=== PATIENT | female | born 1965 | race Caucasian/White ===

== ENCOUNTER 2019-09-13 13:08 | Observation (INO) ==
[2019-09-13] MEDS ORDERED: MoRPHine SULFATE 4 MG/ML 1 ML CARP\\VIAL IV STA ×3 (13:17→15:30)
--- NOTE | 2019-09-13 13:22 | Emergency Department Note ---
Impression & Plan Fall, Gait instability, Back pain ED Provider Note Provider: Uday Hernandez MD DATE OF SERVICE: 09/13/2019 CHIEF COMPLAINT: Fall HISTORY OF PRESENT ILLNESS: Patient is a 53-year-old female with a history of back issues, diabetes, fibromyalgia presenting today via ambulance after a ground-level fall at home. Patient states she is been falling much more frequently recently has been seeing her doctor in [facility]. Patient states that she is been given a walker and was noted to have low B12 and just started B12 supplementation injections. Patient states today her feet seem to give out on her she fell over a coffee table. States she did strike her head but denies loss of consciousness. Not significantly on anticoagulants. Complaining of significant pain from her posterior head all the way down to her upper buttocks. Pain predominantly in the back. Denies anterior chest pain or abdominal pain. Denies significant pain in her extremities. Patient arrives via EMS again on a [place]cal[place] and in a c-collar. No pain medicine prior to arrival beyond her daily tramadol which is a has not been helping with her pain. Pain is worse with movement. REVIEW OF SYSTEMS: A total of 10 review of systems was obtained and negative except as stated above in the HPI. PAST MEDICAL HISTORY: As noted above, prior cholecystectomy MEDICATIONS: Reviewed the nursing notes and agree, SOCIAL HISTORY: Lives at home, is a smoker PHYSICAL EXAM: GENERAL: alert and oriented in no acute distress on stretcher Head: normocephalic and atraumatic EYES: No injection, discharge or icterus. PERRL, EOMI. NECK: Trachea midline. Supple. Does have some mild diffuse posterior pain not particularly midline ENT: Mucous membranes pink and moist. LUNGS: Airway patent. No retractions. Breath sounds clear anteriorly HEART: Regular rate and rhythm. No chest wall tenderness ABDOMEN: Soft and non-tender, without guarding or rebound. No hepatosplenomegaly or masses BACK: Diffuse tenderness of the thoracic and lumbar spine and paraspinal areas. No step-offs SKIN: Acyanotic, warm, dry, without rashes EXTREMITIES: Without swelling, tenderness or deformity NEUROLOGICAL: No focal deficits and moving extremities equally. No aphasia or slurred speech. No decreased sensation in the upper or lower extremities. EKG:Normal sinus rhythm rate of 89 bpm. No PVC. No acute ST segment elevation or depression. Normal axis. QTC 474. CONTINUOUS CARDIAC MONITORING: was ordered and showed a heart rate of 90 bpm in NSR Patient's hypertension was referred to the hospitalist GCS 15. HOSPITAL COURSE: 1310 Patient was first seen and H&P performed. 1540 Patient reassessed and updated. Patient was still with pain. She states concerns about her ability to walk and fall risk. Discussed options. Patient's laboratory studies and imaging reviewed. Differential includes Fracture, dislocation, contusion, intra-abdominal, pneumothorax, intrathoracic, intracranial, neurologic, compartment syndrome, rhabdomyolysis, as well as other pathologies. IMPRESSION/MEDICAL DECISION MAKING: Patient presents after a ground-level fall complaining significant posterior head and particularly spine pain. Does have some chronic issue here. Do not see significant neurological deficit at this time. Given the significant pain she is endorsing did complete imaging and basic laboratory studies. I doubt at this time this represents acute cauda equina. I doubt GBS or meningitis. Basic laboratory studies showed no significant cytosis and no anemia. No significant lifeline abnormality. Troponin is negative. No CPK elevation. B12 level is actually elevated likely sequelae of her supplementation if there is a component of B12 neuropathy that should improve. Difficult IV access and did require several doses of morphine for pain. CT scan of the head and neck without acute traumatic injury noted. CT of the chest was completed without acute intrathoracic injury noted. CT of the abdomen pelvis as well as CT of the thoracic and lumbar spine without acute traumatic injury. Some noted common bile duct distention is noted. Patient has no significant ST abnormalities no significant mariza tenderness and prior cholecystectomy believe this is likely more of a chronic finding. No believe it is germane to today's complaint. Given some Toradol here to help with symptoms as well. Discussed with case management and the patient's insurance does not allow direct transfer to rehab facility such [facility] at this time. Given her continued pain and need for rehab services along with fall risk believe admission for further care is indicated. She has ambulatory dysfunction and gait instability. Hospitalist was alerted to evaluate the patient. DIAGNOSIS: Fall, back pain, gait instability DISPOSITION: Hospitalist will evaluate Patient was agreeable with this plan. Past Med/Surg History Social History Communication Ability: Effective Communications Media Professor Required: No Other Information That Helps Us Care for You: No Feels Safe at Home: Yes Safety Concerns: Feels Safe At This Time Smoking Status: Current every day smoker Tobacco Type: cigarettes ; Cigarettes Per Day: 24 ; Do You Dip or Chew Tobacco: No ; Second Hand Exposure: Yes ; Tobacco Cessation Education Requested by Patient: No Hx Alcohol Use: No Hx Substance Use: No Allergies Allergies Allergy/AdvReac Type Severity Reaction Status Date / Time fluoxetine AdvReac Dizziness Unverified 09/13/19 13:38 Home Meds Home Medications Medication Instructions Recorded Confirmed atorvastatin 10 mg PO DAILY 09/13/19 09/13/19 celecoxib 200 mg PO DAILY 09/13/19 09/13/19 citalopram 10 mg PO DAILY 09/13/19 09/13/19 cyanocobalamin (vitamin B-12) 1,000 mcg IM MONTHLY 09/13/19 09/13/19 duloxetine 60 mg PO DAILY 09/13/19 09/13/19 folic acid 1 mg PO DAILY 09/13/19 09/13/19 gabapentin 600 mg PO TID 09/13/19 09/13/19 galcanezumab-gnlm [Emgality Pen] 120 mg SUBCUT MONTHLY 09/13/19 09/13/19 lorazepam 1 mg PO TID PRN 09/13/19 09/13/19 metoclopramide HCl 10 mg PO TID 09/13/19 09/13/19 naloxegol [Movantik] 25 mg PO DAILY 09/13/19 09/13/19 nicotine 1 patch TRANSDERMAL DAILY 09/13/19 09/13/19 pantoprazole 40 mg PO DAILY 09/13/19 09/13/19 sucralfate 1 g PO QID 09/13/19 09/13/19 topiramate 25 mg PO HS 09/13/19 09/13/19 tramadol 100 mg PO Q6 09/13/19 09/13/19 trazodone 50 mg PO HS 09/13/19 09/13/19 Results & Data (ED) Vital Signs Vital Signs - 24 hr 09/13/19 13:17 09/13/19 13:18 09/13/19 15:27 Temperature 36.9 C Temperature Source Oral Pulse Rate 91 H Pulse Rate [Right Finger] 84 Respiratory Rate 18 20 Blood Pressure 162/94 H Blood Pressure [Right Arm] 147/111 H Blood Pressure Mean 116 Blood Pressure Mean [Right Arm] 123 Pulse Oximetry 98 98 99 Oxygen Delivery Method Room Air Room Air Sepsis Recent Fever Within 48 Hours No Sepsis New/Unexplained Change in Mental Status No Sepsis Action Taken by Nursing No Action Required 09/13/19 16:20 Temperature Temperature Source Pulse Rate Pulse Rate [Right Finger] 76 Respiratory Rate 18 Blood Pressure Blood Pressure [Right Arm] 145/76 H Blood Pressure Mean Blood Pressure Mean [Right Arm] 99 Pulse Oximetry 98 Oxygen Delivery Method Sepsis Recent Fever Within 48 Hours Sepsis New/Unexplained Change in Mental Status Sepsis Action Taken by Nursing Laboratory Data Result diagrams: 09/13/19 14:25 09/13/19 14:25 Lab Results 09/13/19 09/13/19 09/13/19 Range/Units 14:05 14:25 14:25 WBC 8.33 (4.8-10.8) K/uL RBC 5.10 (4.2-5.4) M/uL Hgb 16.1 H (12.0-16.0) g/dL Hct 47.1 H (37-47) % MCV 92.4 (80-100) fL MCH 31.6 (25-34) pg MCHC 34.2 (32-36) g/dL RDW Std Deviation 44.7 (36.4-46.3) fL RDW Coeff of Francis 13.1 (11.5-14.5) % Plt Count 241 (130-400) K/uL MPV 8.7 (7.4-10.4) fL Immature Gran % (Auto) 0.1 % Neut % (Auto) 58.8 % Lymph % (Auto) 34.2 % [place] % (Auto) 6.5 % Eos % (Auto) 0.0 % Baso % (Auto) 0.4 % Immature Gran # (Auto) 0.01 (0.00-0.02) K/uL Neut # (Auto) 4.90 (1.4-6.5) K/uL Lymph # (Auto) 2.85 (1.2-3.4) K/uL [place] # (Auto) 0.54 (0.11-0.59) K/uL Eos # (Auto) 0.00 (0-0.5) K/uL Baso # (Auto) 0.03 (0-0.2) K/uL PT 10.9 (9.0-12.0) Seconds INR 1.0 (0.9-1.1) Sodium (136-145) mmol/L Potassium (3.5-5.1) mmol/L Chloride (98-107) mmol/L Carbon Dioxide (21-32) mmol/L Anion Gap (3-11) BUN (7-18) mg/dl Creatinine (0.6-1.2) mg/dl Est Cr Clr Drug Dosing ml/min Est GFR ( Amer) Est GFR (Non-Af Amer) BUN/Creatinine Ratio (10-20) Glucose (70-99) mg/dl Calcium (8.5-10.1) mg/dl Magnesium (1.8-2.4) mg/dl Total Bilirubin (0.2-1) mg/dl AST (15-37) U/L ALT (12-78) U/L Alkaline Phosphatase (45-117) U/L Total Creatine Kinase (26-192) U/L Troponin I (0-0.045) ng/ml Total Protein (6.4-8.2) gm/dl Albumin (3.4-5.0) gm/dl Globulin (2.5-4.0) gm/dl Albumin/Globulin Ratio (0.9-2) Vitamin B12 (211-911) pg/ml Urine Color Yellow Urine Appearance Clear (Clear) Urine pH 7.5 (4.5-7.5) Ur Specific [place] 1.005 (1.000-1.030) Urine Protein Negative (Negative) Urine Glucose (UA) Negative (Negative) Urine Ketones Negative (Negative) Urine Blood Negative (Negative) Urine Nitrite Negative (Negative) Urine Bilirubin Negative (Negative) Urine Urobilinogen Negative (Negative) Ur Leukocyte Esterase Negative (Negative) 09/13/19 09/13/19 Range/Units 14:25 14:25 WBC (4.8-10.8) K/uL RBC (4.2-5.4) M/uL Hgb (12.0-16.0) g/dL Hct (37-47) % MCV (80-100) fL MCH (25-34) pg MCHC (32-36) g/dL RDW Std Deviation (36.4-46.3) fL RDW Coeff of Francis (11.5-14.5) % Plt Count (130-400) K/uL MPV (7.4-10.4) fL Immature Gran % (Auto) % Neut % (Auto) % Lymph % (Auto) % [place] % (Auto) % Eos % (Auto) % Baso % (Auto) % Immature Gran # (Auto) (0.00-0.02) K/uL Neut # (Auto) (1.4-6.5) K/uL Lymph # (Auto) (1.2-3.4) K/uL [place] # (Auto) (0.11-0.59) K/uL Eos # (Auto) (0-0.5) K/uL Baso # (Auto) (0-0.2) K/uL PT (9.0-12.0) Seconds INR (0.9-1.1) Sodium 139 (136-145) mmol/L Potassium 4.1 (3.5-5.1) mmol/L Chloride 109 H (98-107) mmol/L Carbon Dioxide 25 (21-32) mmol/L Anion Gap 5.0 (3-11) BUN 9 (7-18) mg/dl Creatinine 0.97 (0.6-1.2) mg/dl Est Cr Clr Drug Dosing 76.8 ml/min Est GFR ( Amer) 76.7 Est GFR (Non-Af Amer) 66.2 BUN/Creatinine Ratio 9.0 L (10-20) Glucose 91 (70-99) mg/dl Calcium 9.1 (8.5-10.1) mg/dl Magnesium 2.2 (1.8-2.4) mg/dl Total Bilirubin 0.4 (0.2-1) mg/dl AST 25 (15-37) U/L ALT 28 (12-78) U/L Alkaline Phosphatase 79 (45-117) U/L Total Creatine Kinase 79 (26-192) U/L Troponin I < 0.015 (0-0.045) ng/ml Total Protein 7.7 (6.4-8.2) gm/dl Albumin 3.7 (3.4-5.0) gm/dl Globulin 4.0 (2.5-4.0) gm/dl Albumin/Globulin Ratio 0.9 (0.9-2) Vitamin B12 1631 H (211-911) pg/ml Urine Color Urine Appearance (Clear) Urine pH (4.5-7.5) Ur Specific [place] (1.000-1.030) Urine Protein (Negative) Urine Glucose (UA) (Negative) Urine Ketones (Negative) Urine Blood (Negative) Urine Nitrite (Negative) Urine Bilirubin (Negative) Urine Urobilinogen (Negative) Ur Leukocyte Esterase (Negative) Administered Medications Ioversol (Optiray 320 100ml) 94 ml IV ONCE PRN PRN Reason: Interaction Checking Stop: 09/17/19 15:16 Last Admin: 09/13/19 15:17 Dose: 94 ml Documented by: [id number] Sucralfate (Carafate Tab) 1 gm PO QID AMELIE Stop: 10/13/19 18:05 Last Admin: 09/13/19 18:46 Dose: 1 gm Documented by: [id number] Tramadol HCl (Ultram) 100 mg PO Q6 [facility] Stop: 10/13/19 18:05 Last Admin: 09/13/19 18:45 Dose: 100 mg Documented by: [id number] Discontinued Medications Hydrocodone Bitart/Acetaminophen ([place] 5/325) Confirm Administered Dose 1 tab PO .STK-MED ONE Stop: 09/13/19 17:32 Last Admin: 09/13/19 17:36 Dose: 1 tab Documented by: [id number] Ketorolac Tromethamine (Toradol) 15 mg IV NOW STA Stop: 09/13/19 15:41 Last Admin: 09/13/19 15:46 Dose: 15 mg Documented by: [id number] Morphine Sulfate (Morphine Sulfate) 4 mg IV NOW STA Stop: 09/13/19 13:18 Last Admin: 09/13/19 13:44 Dose: 4 mg Documented by: [id number] Morphine Sulfate (Morphine Sulfate) 4 mg IV NOW STA Stop: 09/13/19 14:25 Last Admin: 09/13/19 14:40 Dose: 4 mg Documented by: [id number] Morphine Sulfate (Morphine Sulfate) 4 mg IV NOW STA Stop: 09/13/19 15:31 Last Admin: 09/13/19 15:42 Dose: 4 mg Documented by: [id number] Discharge Plan Visit Data *Final* Discharge Date/Time: 09/13/19 17:55 Chief Complaint: Back Injury/Pain Stated Complaint: fall/ head & neck pain ED Provider: Uday Hernandez Discharge Problem: Fall, Gait instability, Back pain Patient Disposition: Admitted As Inpatient Discharge Instructions Interventions: ED Discharge Assessment Last Done: 09/13/19 17:55 Discharge Problem: Fall Qualifiers: Encounter type: initial encounter Qualified Code(s): W19.XXXA - Unspecified fall, initial encounter Back pain Qualifiers: Back pain location: back pain in unspecified location Chronicity: acute Back pain laterality: bilateral Qualified Code(s): M54.9 - Dorsalgia, unspecified
[2019-09-13 14:38] LABS: Basophils # (auto) 0.03 K/uL (0-0.2); Basophils % (auto) 0.4 %; Hematocrit (blood only) 47.1 % (37-47); Hemoglobin 16.1 g/dL (12.0-16.0); Immature Granulocytes # (auto) 0.01 K/uL (0.00-0.02); Immature Granulocytes % (auto) 0.1 %; Lymphocytes # (auto) 2.85 K/uL (1.2-3.4); Lymphocytes % (auto) 34.2 %; Mean Corpuscular Hemoglobin 31.6 pg (25-34); Mean Corpuscular Hgb Conc 34.2 g/dL (32-36); Mean Corpuscular Volume 92.4 fL (80-100); Mean Platelet Volume 8.7 fL (7.4-10.4); Monocytes # (auto) 0.54 K/uL (0.11-0.59); Monocytes % (auto) 6.5 %; Neutrophils % (auto) 58.8 %; Platelet Count 241 K/uL (130-400); RDW Coefficient of Variation 13.1 % (11.5-14.5); RDW Standard Deviation 44.7 fL (36.4-46.3); White Blood Count 8.33 K/uL (4.8-10.8)
[2019-09-13 14:40] LABS: Appearance Urine Clear (Clear); Bilirubin Urine Negative (Negative); Blood Urine Negative (Negative); Color Urine Yellow; Glucose Urine UA Negative (Negative); Ketones Urine Negative (Negative); Leukocyte Esterase Urine Negative (Negative); Nitrite Urine Negative (Negative); Protein Urine Negative (Negative); Specific Gravity Urine 1.005 (1.000-1.030); Urobilinogen Urine Negative (Negative); pH Urine 7.5 (4.5-7.5)
[2019-09-13 14:45] LABS: Prothrombin Time 10.9 Seconds (9.0-12.0)
[2019-09-13 14:52] LABS: Alanine Aminotransferase 28 U/L (12-78); Albumin Level 3.7 gm/dl (3.4-5.0); Aspartate Aminotransferase 25 U/L (15-37); Blood Urea Nitrogen 9 mg/dl (7-18); Calcium 9.1 mg/dl (8.5-10.1); Carbon Dioxide 25 mmol/L (21-32); Chloride 109 mmol/L (98-107); Creatinine Clr Calc Pharmacy 76.8 ml/min; Est GFR (African American) 76.7; Est GFR (Non-African American) 66.2; Glucose 91 mg/dl (70-99); Magnesium 2.2 mg/dl (1.8-2.4); Potassium 4.1 mmol/L (3.5-5.1); Sodium 139 mmol/L (136-145)
[2019-09-13 14:56] LABS: Albumin Globulin Ratio 0.9 (0.9-2); Alkaline Phosphatase 79 U/L (45-117); Bilirubin,Total 0.4 mg/dl (0.2-1); Creatine Kinase 79 U/L (26-192); Total Protein 7.7 gm/dl (6.4-8.2); Troponin I < 0.015 ng/ml (0-0.045)
[2019-09-13] MEDS ORDERED: IOVERSOL 100ml IV PRN (15:17)
--- NOTE | 2019-09-13 15:26 | CT Scan Report ---
CT OF THE CERVICAL SPINE CLINICAL HISTORY: Neck pain status post trauma COMPARISON STUDY: No previous studies for comparison. CT DOSE: TECHNIQUE: CT scan of the cervical spine was performed from the skull base to the thoracic inlet. Supriya ges are reviewed in the axial, sagittal, and coronal planes. IV contrast was not administered for thi s examination. A dose lowering technique was utilized adhering to the principles of ALARA. FINDINGS: The visualized portions of the lung apices reveal no evidence of pneumothorax. The prevertebral soft tissues are normal. No fractures or subluxations are visualized. There are multilevel degenerative changes, most pronounced the C5-C6 and C7-T1 levels. IMPRESSION: No evidence of acute fracture or traumatic subluxation. ACT 112: Negative or not required by law. Electronically signed by: Mynor Higgins M.D. 09/13/2019 3:25 PM
--- NOTE | 2019-09-13 15:26 | CT Scan Report ---
CT head/brain wo con CLINICAL HISTORY: Head pain status post trauma COMPARISON STUDY: No previous studies for comparison. TECHNIQUE: Axial CT of the brain is performed from the vertex to the skull base. IV contrast was not administered for this examination. A dose lowering technique was utilized adhering to the principles of ALARA. CT DOSE: FINDINGS: No intra or extra-axial mass lesions are visualized. There is no CT evidence of acute cortical infarc tion. There is no evidence of midline shift. There is no acute hemorrhage. No calvarial fractures ar e visualized. There is no evidence of pathologic ventricular dilatation. There is a sphenoid sinus air-fluid level. There are postsurgical changes present within the maxillar y and ethmoid sinuses. IMPRESSION: 1. Sphenoid sinus air-fluid level. 2. Otherwise no acute intracranial findings. ACT 112: Negative or not required by law. Electronically signed by: Mynor Higgins M.D. 09/13/2019 3:25 PM
--- NOTE | 2019-09-13 15:31 | CT Scan Report ---
CT OF THE CHEST WITH IV CONTRAST CLINICAL HISTORY: Chest pain status post trauma COMPARISON STUDY: No previous studies for comparison. TECHNIQUE: Following the IV administration of 94 mL of Optiray-320, CT of the thorax was performed f rom the thoracic inlet to the lung bases. Images are reviewed in the axial, sagittal, and coronal gabi rosana. IV contrast was administered without complication. A dose lowering technique was utilized adher ing to the principles of ALARA. CT DOSE: FINDINGS: Thyroid: Imaged portions of the thyroid gland are normal in appearance. Thoracic aorta: The thoracic aorta is normal in course and caliber, noting standard 3-vessel arch kareem crow. No aneurysm or dissection is seen. Pulmonary vasculature: The pulmonary trunk is normal in caliber. There are no central filling defects identified to suggest pulmonary embolus. Note that this examination was not protocoled for the evalu ation of pulmonary emboli. HEART: There is no pericardial effusion. There are coronary artery calcifications. Lungs and pleural spaces: There is no pneumothorax. There are no pleural effusions. There is mild dep endent atelectasis. There is no evidence of pulmonary contusion. There is a punctate calcified right upper lobe granuloma. Mediastinum: There is no evidence of mediastinal hematoma. There is no evidence of pathologic adenopa thy. [place]: There is no evidence of pathologic hilar lymphadenopathy Axilla: There is no evidence of pathologic axillary lymphadenopathy. Upper abdomen: The gallbladder is surgically absent. The common bile duct is dilated measuring 14 mm . There is mild central hepatic biliary ductal prominence. Skeletal structures: No fractures are visualized. IMPRESSION: No evidence of acute intrathoracic injury. ACT 112: Negative or not required by law. Electronically signed by: Mynor Higgins M.D. 09/13/2019 3:30 PM
--- NOTE | 2019-09-13 15:39 | CT Scan Report ---
THORACIC SPINE CT, LUMBAR SPINE CT CT DOSE: HISTORY: fall TECHNIQUE: Multiaxial CT images of the thoracic and lumbar spine were performed and reformatted in th e sagittal and coronal plane without the use of contrast. A dose lowering technique was utilized adh ering to the principles of ALARA. COMPARISON: None. FINDINGS: No fractures. No subluxation. Paraspinal soft tissues are unremarkable. Posterior fusion de fect at L5 and within the sacrum. This is likely developmental. Distended common bile duct measuring up to 1.6 cm. This will be better appreciated on the same day abdomen and pelvis CT. IMPRESSION: 1. No fractures within the thoracic or lumbar spine. 2. Distended common bile duct which will be better appreciated on the same day abdomen and pelvis CT. ACT 112: Negative or not required by law. Electronically signed by: Hay Alves M.D. 09/13/2019 3:37 PM
--- NOTE | 2019-09-13 15:39 | CT Scan Report ---
CT abd pelvis IV con only CLINICAL HISTORY: Abdominal pain status post trauma COMPARISON STUDY: None. TECHNIQUE: The patient was scanned in a dynamic helical fashion during intravenous administration of 94 cc of Optiray 320 A dose lowering technique was utilized adhering to the principles of ALARA. CT DOSE: FINDINGS: Lower chest: There are mild dependent atelectatic changes Liver: There is a to small to characterize 5 mm hypodensity within the right lobe of the liver, possi lisa representing a cyst. There is mild central biliary ductal prominence. The common hepatic duct stefano ears dilated. Gallbladder: Surgically absent. The common bile duct is dilated measuring 17 mm. No distal common stephen e duct or ampullary lesions are visualized on CT scanning. Spleen: Normal in size and attenuation. Pancreas: Unremarkable. There is no pancreatic ductal dilatation. Adrenal glands: Unremarkable. Kidneys: There is no evidence of acute renal injury. There are no solid renal masses. There is a 3 mm left renal calculus there is no hydronephrosis. Bowel: There are no transition zones indicate bowel obstruction. Postsurgical changes are present wit hin the sigmoid colon. There are no findings to indicate acute appendicitis. A distended pelvic bowel , is felt to be postsurgical. Peritoneum: There is no intraperitoneal free air or abdominal ascites. Vasculature: There is no evidence of abdominal aortic aneurysm. Aortoiliac atherosclerotic changes ar e evident. Adenopathy: None. Pelvic viscera: The uterus appears surgically absent. Skeletal structures: No fractures are visualized. IMPRESSION: 1. No evidence of acute intra-abdominal or pelvic injury. 2. Nonspecific common bile duct dilatation status post cholecystectomy 3. Postsurgical changes within the bowel ACT 112: Negative or not required by law. Electronically signed by: Mynor Higgins M.D. 09/13/2019 3:38 PM
[2019-09-13] MEDS ORDERED: KETOROLAC TROMETHAMINE 15 MG/ML VIAL IV STA (15:40)
[2019-09-13] MEDS ORDERED: HYDROCODONE/ACETAMOPHEN 5/325MG TAB PO ONE (17:31)
--- NOTE | 2019-09-13 17:32 | History & Physical Report ---
Date of Service September 13, 2019 Assessment & Plan (1) Gait instability: Admit med surg PT/OT evals - will likely need rehab Will order MRI to rule out CVA given right sided weakness (2) Fall: CT Chest, cervical spine, head, lumbar spine - no acute processes As above (3) Back pain: Toradol, [place], heat application CT spin as above (4) Fibromyalgia: continue duloxetine, gabapentin (5) COPD (chronic obstructive pulmonary disease): does not appear to take any inhalers, will need to have patient follow up (6) B12 deficiency: B12 is 1631, patient receiving B12 shots (7) Tobacco abuse: Encourage cessation (8) DVT prophylaxis: Continue enoxaparin, SCDs History of Present Illness Ms. Warren is presents today for lumbar back pain and gait instability. She has had multiple falls over the last month and a half. She doesn't have any dizziness, she just feels her legs go out from under her. She was being worked up for this with her pcp who diagnosed her with B12 deficiency and neuropathy. She has been receiving B12 shots without any improvement of her symptoms. She is a smoker with a chronic cough, some chronic sob as well. Recent cold a week ago that is now resolving, no fevers. She does have some sinus congestion on her CT. She has abdominal pain which is chronic and is scheduled for a colonoscopy on 09/27. She has been having diarrhea but only had loss of control of her bowels once in the past month, no urinary incontinence or saddle anesthesia. She is frequently nauseas. She reports some ongoing urinary frequency. Pmhx: COPD, B12 deficiency, bowel distention, fibromyalgia Social: lives alone, smokes 2 packs per day for 40 years, no alcohol, on disability Family: cancer, heart disease Primary Care Provider: Jose Patterson Allergies Allergy/AdvReac Type Severity Reaction Status Date / Time fluoxetine AdvReac Dizziness Unverified 09/13/19 13:38 Home Medications Home Medications Medication Instructions Recorded Confirmed Type atorvastatin 10 mg PO DAILY 09/13/19 09/13/19 History celecoxib 200 mg PO DAILY 09/13/19 09/13/19 History citalopram 10 mg PO DAILY 09/13/19 09/13/19 History cyanocobalamin (vitamin B-12) 1,000 mcg IM MONTHLY 09/13/19 09/13/19 History duloxetine 60 mg PO DAILY 09/13/19 09/13/19 History folic acid 1 mg PO DAILY 09/13/19 09/13/19 History gabapentin 600 mg PO TID 09/13/19 09/13/19 History galcanezumab-gnlm [Emgality Pen] 120 mg SUBCUT MONTHLY 09/13/19 09/13/19 History lorazepam 1 mg PO TID PRN 09/13/19 09/13/19 History metoclopramide HCl 10 mg PO TID 09/13/19 09/13/19 History naloxegol [Movantik] 25 mg PO DAILY 09/13/19 09/13/19 History nicotine 1 patch TRANSDERMAL DAILY 09/13/19 09/13/19 History pantoprazole 40 mg PO DAILY 09/13/19 09/13/19 History sucralfate 1 g PO QID 09/13/19 09/13/19 History topiramate 25 mg PO HS 09/13/19 09/13/19 History tramadol 100 mg PO Q6 09/13/19 09/13/19 History trazodone 50 mg PO HS 09/13/19 09/13/19 History Past Med/Surg History Social History Communication Ability: Effective Surgical Nurse Practitioner Required: No Other Information That Helps Us Care for You: No Feels Safe at Home: Yes Safety Concerns: Feels Safe At This Time Smoking Status: Current every day smoker Tobacco Type: cigarettes ; Cigarettes Per Day: 24 ; Do You Dip or Chew Tobacco: No ; Second Hand Exposure: Yes ; Tobacco Cessation Education Requested by Patient: No Hx Alcohol Use: No Hx Substance Use: No Physical Exam Physical Exam: General: no distress Eyes: normal inspection, PERLL Respiratory: chest non tender, clear to auscultation, normal breath sounds, no respiratory distress, no accessory muscle use Cardiac: regular rate and rhythm, no rub or gallop, no murmur, no edema, no jvd GI/: active bowel sounds, abdomen tender, soft, non distended Extremities: left upper and lower extremity weakness Neuro:oriented x 3, moves all extremities, CN II-XII intact except for XI with left side weak, left arm drift Psych: alert, normal mood and affect Skin: normal color, dry Results & Data Results & Data ([facility]) Vital Signs (Past 12 Hours) Vital Signs Temp Pulse Pulse Resp BP BP Pulse Ox 09/13/19 16:20 76 18 145/76 H 98 09/13/19 15:27 84 20 147/111 H 99 09/13/19 13:18 36.9 C 91 H 18 162/94 H 98 09/13/19 13:17 98 Supervising Physician Co-Signing Physician Notes I supervised Yu Heller NP on this patient's care. I discussed the plan of care with her with the plan being as written in her note except for any following changes/exceptions: None. MRI brain is negative for CVA. 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 Will discuss with radiology tomorrow. Otherwise, will pursue pain control, PT/OT, and possible rehab per patient wishes. PG Care Time/CCT Total # of Minutes Spent Total Time Spent with Patient: Total time spent is greater than 50% in coordination of care (as documented) at patient's floor/unit and/or counseling patient: Coding Level of Care Code 51703 Initial Inpt Care Lvl 3 Diagnoses Gait instability R26.81 Fall W19.XXXA Encounter type: initial encounter Back pain M54.9 Fibromyalgia M79.7 COPD (chronic obstructive pulmonary disease) J44.9 B12 deficiency E53.8 Tobacco abuse Z72.0 DVT prophylaxis Z29.9 (1) Fall Encounter type: initial encounter Qualified Code(s): W19.XXXA - Unspecified fall, initial encounter
[2019-09-13] MEDS ORDERED: POLYETHYLENE (MIRALAX) 17 GM PACK PO PRN (18:06)
[2019-09-13] MEDS ORDERED: ACETAMINOPHEN 325 MG TAB PO PRN (18:06)
[2019-09-13] MEDS ORDERED: TRAMADOL HCL 50 MG TABLET PO SCH (18:06)
[2019-09-13] MEDS: SUCRALFATE 1 GM TAB PO SCH ×2 (18:46→21:05)
--- NOTE | 2019-09-13 19:56 | Magnetic Resonance Report ---
MR brain wo con HISTORY: Mental status change gait instability TECHNIQUE: Multiplanar multisequence MRI of the brain was performed without the use of contrast. COMPARISON STUDY: None. FINDINGS: There are no areas of restricted diffusion to suggest acute infarction. The midline structu res are intact. The paranasal sinuses are clear. The mastoid air cells are clear. The ventricles and sulci are within normal limits for age. There is no mass, hematoma, midline shift. The major vascular flow-voids at the skull base are well maintained. IMPRESSION: No acute intracranial abnormality. ACT 112: Negative or not required by law. The above report was generated using voice recognition software. It may contain grammatical, syntax or spelling errors. Electronically signed by: Maverick Negron M.D. 09/13/2019 7:54 PM
[2019-09-13] MEDS ORDERED: TRAZODONE HCL 50 MG TAB PO SCH (21:00)
[2019-09-13] MEDS: GABAPENTIN 600 MG TAB PO SCH (21:06)
[2019-09-13] MEDS: METOCLOPRAMIDE HCL 10 MG TABLET PO SCH (21:06)
[2019-09-13] MEDS: TRAZODONE HCL 50 MG TAB PO SCH (21:07)
[2019-09-13] MEDS: TOPIRAMATE 25 MG TAB PO SCH (21:07)
[2019-09-13] MEDS: KETOROLAC TROMETHAMINE 15 MG/ML VIAL IV PRN (21:16)
[2019-09-14] MEDS: HYDROCODONE/ACETAMOPHEN 5/325MG TAB PO PRN ×3 (00:47→16:22)
[2019-09-14] MEDS: KETOROLAC TROMETHAMINE 15 MG/ML VIAL IV PRN ×3 (03:26→20:32)
[2019-09-14] MEDS: MOVANTIK 25 MG PO SCH (06:03)
[2019-09-14] MEDS: GABAPENTIN 600 MG TAB PO SCH ×3 (07:55→20:12)
[2019-09-14] MEDS: ATORVASTATIN 10 MG TAB PO SCH (07:55)
[2019-09-14] MEDS: DULOXETINE HCL 60 MG CAP PO SCH (07:55)
[2019-09-14] MEDS: FOLIC ACID 1 MG TAB PO SCH (07:55)
[2019-09-14] MEDS: PANTOprazole 40 MG TAB PO SCH (07:56)
[2019-09-14] MEDS: NICOTINE 21 MG/24 HR TDSY TD SCH (07:56)
[2019-09-14] MEDS: METOCLOPRAMIDE HCL 10 MG TABLET PO SCH ×3 (07:56→20:13)
[2019-09-14] MEDS: CITALOPRAM 20 MG TAB PO SCH ×2 (07:56→08:50)
[2019-09-14] MEDS: SUCRALFATE 1 GM TAB PO SCH ×4 (07:56→20:12)
[2019-09-14] MEDS: ENOXAPARIN INJ 40 MG/0.4 ML SYR SQ SCH (07:57)
[2019-09-14 08:35] LABS: Basophils # (auto) 0.03 K/uL (0-0.2); Basophils % (auto) 0.4 %; Hematocrit (blood only) 45.2 % (37-47); Hemoglobin 15.3 g/dL (12.0-16.0); Immature Granulocytes # (auto) 0.02 K/uL (0.00-0.02); Immature Granulocytes % (auto) 0.3 %; Lymphocytes # (auto) 1.54 K/uL (1.2-3.4); Lymphocytes % (auto) 21.5 %; Mean Corpuscular Hemoglobin 31.5 pg (25-34); Mean Corpuscular Hgb Conc 33.8 g/dL (32-36); Mean Platelet Volume 8.5 fL (7.4-10.4); Monocytes # (auto) 0.57 K/uL (0.11-0.59); Monocytes % (auto) 7.9 %; Neutrophils # (auto) 5.01 K/uL (1.4-6.5); Neutrophils % (auto) 69.9 %; Platelet Count 259 K/uL (130-400); RDW Coefficient of Variation 13.3 % (11.5-14.5); RDW Standard Deviation 45.4 fL (36.4-46.3); Red Blood Count 4.86 M/uL (4.2-5.4); White Blood Count 7.17 K/uL (4.8-10.8)
[2019-09-14] MEDS: SODIUM CHLORIDE 0.9% 1000ML 1,000 ML IV SCH ×2 (08:51→20:35)
[2019-09-14 08:53] LABS: BUN Creatinine Ratio 12.8 (10-20); Calcium 9.2 mg/dl (8.5-10.1); Creatinine Clr Calc Pharmacy 64.6 ml/min; Est GFR (Non-African American) 63.8; Potassium 4.2 mmol/L (3.5-5.1)
--- NOTE | 2019-09-14 14:38 | Electrocardiogram Report ---
Test Reason : Blood Pressure : / mmHG Vent. Rate : 089 BPM Atrial Rate : 089 BPM P-R Int : 152 ms QRS Dur : 092 ms QT Int : 390 ms P-R-T Axes : 073 -05 073 degrees QTc Int : 474 ms Normal sinus rhythm Possible Inferior infarct , age undetermined Abnormal ECG No previous ECGs available Confirmed by Jeffrey Moon ([id number]) on 09/14/2019 2:38:07 PM Referred By: REFERRED SELF Confirmed By:Jeffrey Moon
--- NOTE | 2019-09-14 15:20 | Magnetic Resonance Report ---
MR thoracic spine wo con CLINICAL HISTORY: right side weakness PRIOR STUDIES: CT scan dated 09/13/2019 TECHNIQUE: MR scanning of the thoracic spine was performed using multiple pulse sequences. No gadoli nium was administered. FINDINGS: There are no suspicious areas of marrow replacement. There are no areas of bone marrow edema to indicate occult fracture. No spinal cord lesions are visualized on this noncontrast study. No epidural masses are visualized on this noncontrast study. No disc herniations are visualized. There is no spinal stenosis. No paraspinal lesions are delineated. There are mild multilevel degenerative changes. IMPRESSION: 1. Mild multilevel degenerative change. 2. Otherwise unremarkable MRI of the thoracic spine for age ACT 112: Negative or not required by law. Electronically signed by: Mynor Higgins M.D. 09/14/2019 3:19 PM
--- NOTE | 2019-09-14 15:36 | Magnetic Resonance Report ---
MR lumbar spine wo con CLINICAL HISTORY: right side weakness TRAUMA TECHNIQUE: Sagittal and axial T1, T2 and STIR images were obtained. COMPARISON STUDY: CT scan dated 09/13/2019 OBSERVATIONS: The vertebral bodies and posterior elements appear intact. There is no abnormal bony signal present t o suggest a marrow replacement process. L1-2: There is a minor circumferential disc bulge. There is no evidence for spinal or foraminal steno sis L2-3: No disc protrusions or extrusions. No evidence of spinal canal or neural foraminal compromise. L3-4: No disc protrusions or extrusions. No evidence of spinal canal or neural foraminal compromise. L4-5: No disc protrusions or extrusions. No evidence of spinal canal or neural foraminal compromise. L5-S1: There is a minor circumferential disc bulge. There is no spinal stenosis. There is mild bilate ral foraminal narrowing There are no areas of marrow edema to indicate occult fracture. The conus medullaris and cauda equina appear normal. IMPRESSION: 1. Minor disc bulges at the L1-2 and L5-S1 levels. 2. No evidence of occult fracture 3. No evidence of spinal stenosis. Mild bilateral foraminal narrowing at the L5-S1 level. ACT 112: Negative or not required by law. Electronically signed by: Mynor Higgins M.D. 09/14/2019 3:35 PM
--- NOTE | 2019-09-14 16:25 | Magnetic Resonance Report ---
CERVICAL SPINE MRI HISTORY: right side weakness TECHNIQUE: Multiplanar multisequence MRI of the cervical spine was performed without the use of contr ast. COMPARISON STUDY: Cervical spine CT 09/13/2019. FINDINGS: Straightening of the cervical spine. No fracture or subluxation. Prevertebral soft tissues and the C1-C2 interval are intact. Mild disc space at C4-C5 and C5-C6. The cervical spinal cord impin gement a normal signal intensity. The visualized posterior fossa is unremarkable. C2-C3: No significant central canal or neural foraminal narrowing. C3-C4: No significant central canal or neural foraminal narrowing. C4-C5: Small focal central disc protrusion which abuts and slightly deforms anterior cord. This is co nsistent with mild central canal narrowing. No significant neural foraminal narrowing. C5-C6: Broad-based posterior disc osteophyte complex which abuts and slightly deforms anterior cord c onsistent with mild to moderate central canal narrowing. There is severe bilateral neural foraminal n arrowing due to the uncovertebral hypertrophy. C6-C7: Tiny broad-based posterior disc bulge without significant central canal or neural foraminal na rrowing. C7-T1: No significant central canal or neural foraminal narrowing. IMPRESSION: 1. No fractures of fixation within the cervical spine. 2. Straightening of the cervical spine. 3. Degenerative changes as described above most pronounced at the C5-C6 level which demonstrates mild to moderate central canal narrowing and severe bilateral neural foraminal narrowing. ACT 112: Negative or not required by law. Electronically signed by: Hay Alves M.D. 09/14/2019 4:24 PM
--- NOTE | 2019-09-14 16:58 | Hospitalist Progress Note ---
Date of Service September 14, 2019 Assessment & Plan (1) Gait instability: Admit med surg PT/OT evals - will likely need rehab MRI brain without acute changes, MRI spine showing severe bilateral foraminal narrowing C5-6 - will consult ortho given right arm weakness Given history of B12 def and neuropathy, may be that this is the etiology for all of the falls and weakness due to persistence despite B12 repletion (2) Fall: CT Chest, cervical spine, head, lumbar spine - no acute processes As above (3) Back pain: Continue Toradol, [place], heat application CT spin as above (4) Fibromyalgia: continue duloxetine, gabapentin (5) COPD (chronic obstructive pulmonary disease): does not appear to take any inhalers (6) B12 deficiency: B12 is 1631, patient receiving B12 shots (7) Tobacco abuse: Encourage cessation (8) DVT prophylaxis: Continue enoxaparin, SCDs dispo: patient can likely discharge after ortho consult if no intervention indicated. Will need therapy, referrals in to [facility] and [facility] Admission and Anticipated Discharge Date Admission Date: September 13, 2019 Subjective Ms. Warren continues to have back pain, it occasionally radiates down the sides of her legs when she walks. No numbness anywhere. No loss of control of bowels or bladder. She has no other complaints. ROS Constitutional: no chills, aches, sweats or fever Respiratory: no sob,cough, sputum, or wheezing Cardiac: no chest pain, palpitations, edema, orthopnea or lightheadedness GI: no abdominal pain, nausea, vomiting, diarrhea or constipation : no dysuria or hesitancy Extremities: no joint pain or weakness Skin: no rash All other systems reviewed and negative Physical Exam Physical Exam: General: no distress Eyes: normal inspection, PERLL Respiratory: chest non tender, clear to auscultation, normal breath sounds, no respiratory distress, no accessory muscle use Cardiac: regular rate and rhythm, no rub or gallop, no murmur, no edema, no jvd GI/: active bowel sounds, no abd pain or tenderness, soft, non distended Extremities: normal range of motion, normal strength, non tender Neuro/Psych: alert and oriented x 3, normal mood and affect Skin: normal color, dry Results & Data Results & Data ([facility]) Vital Signs (Past 12 Hours) Vital Signs Temp Pulse Resp BP BP Pulse Ox 04/03/20 16:33 36.8 C 92 H 18 146/83 H 99 09/14/19 07:23 96/62 L 09/14/19 07:08 36.7 C 66 20 87/54 L 97 PG Care Time/CCT Total # of Minutes Spent Total Time Spent with Patient: Total time spent is greater than 50% in coordination of care (as documented) at patient's floor/unit and/or counseling patient: Coding Level of Care Code 36620 Subseq Hosp Care Lvl 3 Diagnoses Gait instability R26.81 Fall W19.XXXA Encounter type: initial encounter Back pain M54.9 Back pain laterality: bilateral Back pain location: back pain in unspecified location Chronicity: acute Fibromyalgia M79.7 COPD (chronic obstructive pulmonary disease) J44.9 B12 deficiency E53.8 Tobacco abuse Z72.0 DVT prophylaxis Z29.9 (1) Fall Encounter type: initial encounter Qualified Code(s): W19.XXXA - Unspecified fall, initial encounter (2) Back pain Back pain laterality: bilateral Back pain location: back pain in unspecified location Chronicity: acute Qualified Code(s): M54.9 - Dorsalgia, unspecified
[2019-09-14] MEDS: LORazepam 1 MG TAB PO PRN (20:11)
[2019-09-14] MEDS: TOPIRAMATE 25 MG TAB PO SCH (20:14)
[2019-09-14] MEDS: TRAZODONE HCL 50 MG TAB PO SCH (20:14)
[2019-09-14] MEDS ORDERED: Nursing to Pharmacy Communication ONE (23:10)
[2019-09-15] MEDS: KETOROLAC TROMETHAMINE 15 MG/ML VIAL IV PRN ×4 (05:45→23:05)
[2019-09-15] MEDS: MOVANTIK 25 MG PO SCH (05:48)
[2019-09-15] MEDS: SODIUM CHLORIDE 0.9% 1000ML 1,000 ML IV SCH ×2 (06:28→17:38)
[2019-09-15] MEDS: SUCRALFATE 1 GM TAB PO SCH ×4 (07:37→20:26)
[2019-09-15] MEDS: FOLIC ACID 1 MG TAB PO SCH (07:37)
[2019-09-15] MEDS: DULOXETINE HCL 60 MG CAP PO SCH (07:37)
[2019-09-15] MEDS: METOCLOPRAMIDE HCL 10 MG TABLET PO SCH ×3 (07:38→20:27)
[2019-09-15] MEDS: ENOXAPARIN INJ 40 MG/0.4 ML SYR SQ SCH (07:38)
[2019-09-15] MEDS: GABAPENTIN 600 MG TAB PO SCH ×3 (07:38→20:27)
[2019-09-15] MEDS: ATORVASTATIN 10 MG TAB PO SCH (07:38)
[2019-09-15] MEDS: PANTOprazole 40 MG TAB PO SCH (07:38)
[2019-09-15] MEDS: NICOTINE 21 MG/24 HR TDSY TD SCH (07:38)
[2019-09-15] MEDS: HYDROCODONE/ACETAMOPHEN 5/325MG TAB PO PRN ×2 (08:12→19:24)
[2019-09-15] MEDS ORDERED: EMGALITY 120 MG SQ SCH (09:00)
--- NOTE | 2019-09-15 11:02 | Orthopedic Consultation ---
Date of Consultation September 15, 2019 Assessment & Plan (1) Herniation of cervical intervertebral disc with radiculopathy: Plan at this time I would like to obtain cervical flexion-extension views. While I do not appreciate any evidence of myelomalacia within the cervical cord if there is any underlying instability she may have some cord compression that could account for her Julio Cesar sign and balance issues. She does have several other medical issues that are being addressed. Any surgical intervention at this time would be an ACDF of C5-C6. Present on Admission?: Yes History of Present Illness Reason for Consultation: Neck and right arm pain with weakness Attending Physician: Selin Reynaga, DO History of Present Illness This is a pleasant 53-year-old female that states she is experienced several falls over the past few weeks. She is noting weakness and pain in the right upper extremity as well as the cervical spine. She is left-handed. She describes symptoms rating into the right periscapular region and into the upper shoulder. This is exacerbated with cervical range of motion. Allergies Allergy/AdvReac Type Severity Reaction Status Date / Time fluoxetine AdvReac Dizziness Unverified 09/13/19 13:38 Home Medications Home Medications Medication Instructions Recorded Confirmed Type atorvastatin 10 mg PO DAILY 09/13/19 09/13/19 History celecoxib 200 mg PO DAILY 09/13/19 09/13/19 History citalopram 10 mg PO DAILY 09/13/19 09/13/19 History cyanocobalamin (vitamin B-12) 1,000 mcg IM MONTHLY 09/13/19 09/13/19 History duloxetine 60 mg PO DAILY 09/13/19 09/13/19 History folic acid 1 mg PO DAILY 09/13/19 09/13/19 History gabapentin 600 mg PO TID 09/13/19 09/13/19 History galcanezumab-gnlm [Emgality Pen] 120 mg SUBCUT MONTHLY 09/13/19 09/13/19 History lorazepam 1 mg PO TID PRN 09/13/19 09/13/19 History metoclopramide HCl 10 mg PO TID 09/13/19 09/13/19 History naloxegol [Movantik] 25 mg PO DAILY 09/13/19 09/13/19 History nicotine 1 patch TRANSDERMAL DAILY 09/13/19 09/13/19 History pantoprazole 40 mg PO DAILY 09/13/19 09/13/19 History sucralfate 1 g PO QID 09/13/19 09/13/19 History topiramate 25 mg PO HS 09/13/19 09/13/19 History tramadol 100 mg PO Q6 09/13/19 09/13/19 History trazodone 50 mg PO HS 09/13/19 09/13/19 History Patient History Social History Communication Ability: Effective [employer]al Required: No Other Information That Helps Us Care for You: No Feels Safe at Home: Yes Safety Concerns: Feels Safe At This Time Smoking Status: Current every day smoker Tobacco Type: cigarettes ; Cigarettes Per Day: 24 ; Do You Dip or Chew Tobacco: No ; Second Hand Exposure: Yes ; Tobacco Cessation Education Requested by Patient: No Hx Alcohol Use: No Hx Substance Use: No Physical Exam Physical Exam: On physical exam she exhibits a bilateral Julio Cesar sign to the upper extremities. She has a 3-4 beat clonus bilateral ankles. She does demonstrate weakness to the right biceps compared to the left at a 4/5 on the right. Her grasps also weak on the right compared to the left. Sensory appears to be symmetric and intact. She exhibits evidence of a positive Spurling's to the right negative to the left. Results & Data ([facility]) Vital Signs (Past 12 Hours) Vital Signs Temp Pulse Resp BP Pulse Ox 09/15/19 07:10 36.4 C L 70 18 155/78 H 100 09/14/19 23:27 36.4 C L 77 20 104/67 97 Diagnostic Findings MRI scans available of the cervical thoracic and lumbar spine for review. Certainly appreciate evidence of spondylosis disc protrusion at C4-5, C5-6, C6- 7. There is severe neuroforaminal disease at C5-6 particularly on the right. I do not appreciate any intrinsic cord change. The thoracic and lumbar spine short of basic age-related spondylosis demonstrate no evidence of any cord or neural compression of concern there is some modest neuroforaminal disease at L5- S1 on the right.
--- NOTE | 2019-09-15 12:37 | XRay Report ---
XR cervical spine w flex/ext CLINICAL HISTORY: 53 years-old Female presenting with neck and arm pain. TECHNIQUE: Lateral view of the cervical spine in neutral, extension, and flexion positioning were obt ained as well as bilateral oblique, frontal, open-mouth odontoid, and swimmer's views. COMPARISON: Correlation made to CT and MR of the cervical spine from 09/13/2019 and 09/14/2019, [place] [place] [facility]. FINDINGS: Straightening of normal cervical lordosis on neutral positioning. The C7 vertebral body is mostly vis ualized on swimmer's view. Vertebral bodies maintain normal height and alignment. Mild to moderate in tervertebral disc height loss at C5-6, where there is focal degenerative change with a disc osteophyt e complex. Mild posterior bony spurring at this level. No acute fracture or subluxation. Normal prede ntal interval. No prevertebral soft tissue swelling. Mild facet arthropathy. On extension positioning, trace cervical lordosis is present. No dynamic subluxation. On flexion positioning, slight reversal of cervical alignment with kyphosis centered at C5-6. Bilateral oblique views demonstrate osseous neural foraminal narrowing at C3-4 and to a greater exten t at C5-6 bilaterally. Uncovertebral hypertrophy noted at these levels. Lateral masses of C1 articulate normally with C2. The dens is grossly intact. IMPRESSION: 1. Focal degenerative change at C5-6 with resultant mild osseous spinal canal narrowing. 2. Osseous neural foraminal narrowing at C3-4 and to a greater extent at C5-6, bilaterally. 3. No dynamic subluxation on flexion or extension positioning. 4. No radiographic evidence of acute osseous injury. ACT 112: Negative or not required by law. Electronically signed by: Sanjeev Cai M.D. 09/15/2019 12:35 PM
--- NOTE | 2019-09-15 16:02 | Hospitalist Progress Note ---
Date of Service September 15, 2019 Assessment & Plan (1) Gait instability: Admit med surg PT/OT evals - will likely need rehab MRI brain without acute changes, MRI spine showing severe bilateral foraminal narrowing C5-6 - ortho awaiting further imaging, possible need for surgical intervention Also noted for L1-2, L5-S1 bulging disc Given history of B12 def and neuropathy, may be that this is the etiology for all of the falls and weakness due to persistence despite B12 repletion (2) Fall: CT Chest, cervical spine, head, lumbar spine - no acute processes As above (3) Back pain: Continue Toradol, [place], heat application CT spin as above (4) Fibromyalgia: continue duloxetine, gabapentin (5) COPD (chronic obstructive pulmonary disease): does not appear to take any inhalers (6) B12 deficiency: B12 is 1631, patient receiving B12 shots (7) Tobacco abuse: Encourage cessation (8) DVT prophylaxis: Continue enoxaparin, SCDs Will need therapy, referrals in to [facility] and [facility] Admission and Anticipated Discharge Date Admission Date: September 15, 2019 Subjective Pt is having a lot of pain to her low back and into b/l LE. She states that prior to this recent fall she did have pain in her back and LE with prolonged walking, but now it is with ambulating to the bathroom or even just lying in bed. Ongoing neck pain as well. She did not eat well today due to this pain causing no appetite. She states she can bear weight on her LE, but it is just very painful. No loss of bowel/bladder continence.Pt denies fever, SOB, chest pain, abd pain, n/v/c/d, LE swelling. Review of Systems Review of Systems: Pertinent positives and negatives reviewed in HPI--all others negative Physical Exam Constitutional: WD/WN, vitals as above appears in pain Eyes: normal visual oliva by confrontation and + anicteric sclerae Neck: normal visual inspection and trachea midline Respiratory: normal respiratory effort, lungs clear to auscultation Cardiovascular: Rate/Rhythm: regular rate and regular rhythm Gastrointestinal (Abdomen): Inspection/Auscultation: abdomen not distended Percussion/Palpation: abdomen soft; abdomen nontender Musculoskeletal: Head/Neck/Chest: normocephalic and head atraumatic negative for edema, peripheral pulses intact Skin: no rashes, warm and dry Neurologic: awake; not confused Speech / Cognition: normal speech Psychiatric: A+Ox3, euthymic affect Results & Data Results & Data ([facility]) Vital Signs (Past 12 Hours) Vital Signs Temp Pulse Resp BP Pulse Ox 09/15/19 15:43 36.7 C 87 18 125/76 98 09/15/19 07:10 36.4 C L 70 18 155/78 H 100 PG Care Time/CCT Total # of Minutes Spent Total Time Spent with Patient: Total time spent is greater than 50% in coordination of care (as documented) at patient's floor/unit and/or counseling patient: Coding Level of Care Code 06584 Subseq Hosp Care Lvl 3 Diagnoses Gait instability R26.81 Fall W19.XXXA Encounter type: initial encounter Back pain M54.9 Back pain laterality: bilateral Back pain location: back pain in unspecified location Chronicity: acute Fibromyalgia M79.7 COPD (chronic obstructive pulmonary disease) J44.9 B12 deficiency E53.8 Tobacco abuse Z72.0 DVT prophylaxis Z29.9 (1) Fall Encounter type: initial encounter Qualified Code(s): W19.XXXA - Unspecified fall, initial encounter (2) Back pain Back pain laterality: bilateral Back pain location: back pain in unspecified location Chronicity: acute Qualified Code(s): M54.9 - Dorsalgia, unspecified
[2019-09-15] MEDS: LORazepam 1 MG TAB PO PRN (17:40)
[2019-09-15] MEDS ORDERED: ONDANSETRON 4 MG OD TAB PO PRN (19:30)
[2019-09-15] MEDS: ONDANSETRON INJ 2 MG/ML 2 ML VIAL IV PRN (19:45)
[2019-09-15] MEDS: TRAZODONE HCL 50 MG TAB PO SCH (20:26)
[2019-09-15] MEDS: TOPIRAMATE 25 MG TAB PO SCH (20:27)
[2019-09-16] MEDS: SODIUM CHLORIDE 0.9% 1000ML 1,000 ML IV SCH ×3 (03:22→22:42)
[2019-09-16] MEDS: ONDANSETRON INJ 2 MG/ML 2 ML VIAL IV PRN ×2 (03:22→16:05)
[2019-09-16] MEDS: KETOROLAC TROMETHAMINE 15 MG/ML VIAL IV PRN ×3 (05:45→18:36)
[2019-09-16] MEDS: MOVANTIK 25 MG PO SCH (05:47)
[2019-09-16 07:34] LABS: Creatinine Clr Calc Pharmacy 87.3 ml/min; Est GFR (African American) 106.5; Est GFR (Non-African American) 91.8
[2019-09-16] MEDS: SUCRALFATE 1 GM TAB PO SCH ×4 (08:32→21:01)
[2019-09-16] MEDS: ATORVASTATIN 10 MG TAB PO SCH (08:33)
[2019-09-16] MEDS: NICOTINE 21 MG/24 HR TDSY TD SCH (08:33)
[2019-09-16] MEDS: FOLIC ACID 1 MG TAB PO SCH (08:33)
[2019-09-16] MEDS: DULOXETINE HCL 60 MG CAP PO SCH (08:34)
[2019-09-16] MEDS: GABAPENTIN 600 MG TAB PO SCH ×3 (08:34→21:01)
[2019-09-16] MEDS: METOCLOPRAMIDE HCL 10 MG TABLET PO SCH ×3 (08:34→21:02)
[2019-09-16] MEDS: PANTOprazole 40 MG TAB PO SCH (08:34)
[2019-09-16] MEDS: CITALOPRAM 20 MG TAB PO SCH (08:35)
[2019-09-16] MEDS: ENOXAPARIN INJ 40 MG/0.4 ML SYR SQ SCH (08:35)
[2019-09-16] MEDS: HYDROCODONE/ACETAMOPHEN 5/325MG TAB PO PRN ×2 (09:00→16:05)
--- NOTE | 2019-09-16 10:33 | Orthopedic Progress Note ---
Date of Service September 16, 2019 Assessment & Plan (1) Herniation of cervical intervertebral disc with radiculopathy: After review of her cervical flexion-extension x-rays I appreciate no evidence of instability. There is notable spondylosis most impressive at C5-C6. I have again reviewed her MRIs of the thoracic and lumbar spine and appreciate no significant neural compression certainly anything that would account for her bilateral leg pain and weakness. At this point in light of her underlying medical condition I would not recommend any surgical intervention. She be best served with a course of inpatient rehab if possible. Present on Admission?: Yes Admission and Anticipated Discharge Date Admission Date: September 15, 2019 Results & Data ([facility]) Vital Signs (Past 12 Hours) Vital Signs Temp Pulse Resp BP Pulse Ox 09/16/19 07:13 36.9 C 78 19 110/61 97 09/15/19 22:51 36.7 C 86 18 110/68 96
[2019-09-16] MEDS: LORazepam 1 MG TAB PO PRN ×2 (10:56→20:59)
--- NOTE | 2019-09-16 10:57 | Hospitalist Progress Note ---
Date of Service September 16, 2019 Assessment & Plan (1) Gait instability: PT/OT evals - recs for rehab MRI brain without acute changes, MRI spine showing severe bilateral foraminal narrowing C5-6 - d/w ortho, not planning surgical intervention given no cord compression on f/ex/ext films Also noted for L1-2, L5-S1 bulging disc Given history of B12 def and neuropathy, may be that this is the etiology for all of the falls and weakness due to persistence despite B12 repletion (2) Fall: CT Chest, cervical spine, head, lumbar spine - no acute processes As above (3) Back pain: Continue Toradol, [place], heat application CT spin as above (4) Fibromyalgia: continue duloxetine, gabapentin (5) COPD (chronic obstructive pulmonary disease): does not appear to take any inhalers (6) B12 deficiency: B12 is 1631, patient receiving B12 shots (7) Tobacco abuse: Encourage cessation (8) DVT prophylaxis: Continue enoxaparin, SCDs Planning for rehab, referrals in to [facility] and [facility] Admission and Anticipated Discharge Date Admission Date: September 15, 2019 Subjective Pt is OOB to chair today. She is still having pain to her low back and into b/l LE, but it is less today. She feels she is walking better. Ongoing neck pain as well. She did not eat much breakfast, just coffee and orange juice, but she states that this is her usual breakfast. She feels she will eat lunch today. Pt denies fever, SOB, chest pain, abd pain, n/v/c/d, LE swelling. Review of Systems Review of Systems: Pertinent positives and negatives reviewed in HPI--all others negative Physical Exam Constitutional: WD/WN, vitals as above Eyes: normal visual oliva by confrontation and + anicteric sclerae Neck: normal visual inspection and trachea midline Respiratory: normal respiratory effort, lungs clear to auscultation Cardiovascular: Rate/Rhythm: regular rate and regular rhythm Gastrointestinal (Abdomen): Inspection/Auscultation: abdomen not distended Percussion/Palpation: abdomen soft; abdomen nontender Musculoskeletal: Head/Neck/Chest: normocephalic and head atraumatic Skin: no rashes, warm and dry Neurologic: awake; not confused Speech / Cognition: normal speech Psychiatric: A+Ox3, euthymic affect Results & Data Results & Data ([place]) Vital Signs (Past 12 Hours) Vital Signs Temp Pulse Resp BP Pulse Ox 09/16/19 07:13 36.9 C 78 19 110/61 97 PG Care Time/CCT Total # of Minutes Spent Total Time Spent with Patient: Total time spent is greater than 50% in coor dination of care (as documented) at patient's floor/unit and/or counseling patient: Coding Level of Care Code 66257 Subseq Hosp Care Lvl 3 Diagnoses Gait instability R26.81 Fall W19.XXXA Encounter type: initial encounter Back pain M54.9 Back pain laterality: bilateral Back pain location: back pain in unspecified location Chronicity: acute Fibromyalgia M79.7 COPD (chronic obstructive pulmonary disease) J44.9 B12 deficiency E53.8 Tobacco abuse Z72.0 DVT prophylaxis Z29.9 (1) Fall Encounter type: initial encounter Qualified Code(s): W19.XXXA - Unspecified fall, initial encounter (2) Back pain Back pain laterality: bilateral Back pain location: back pain in unspecified location Chronicity: acute Qualified Code(s): M54.9 - Dorsalgia, unspecified
[2019-09-16] MEDS: BENZOCAINE 20% (ORAJEL) 11.9 GM TUBE MT PRN ×2 (16:37→21:02)
[2019-09-16] MEDS: TRAZODONE HCL 50 MG TAB PO SCH (21:01)
[2019-09-16] MEDS: TOPIRAMATE 25 MG TAB PO SCH (21:02)
[2019-09-17] MEDS: ONDANSETRON INJ 2 MG/ML 2 ML VIAL IV PRN (02:52)
[2019-09-17] MEDS: KETOROLAC TROMETHAMINE 15 MG/ML VIAL IV PRN ×2 (02:52→08:57)
[2019-09-17] MEDS: MOVANTIK 25 MG PO SCH (06:22)
[2019-09-17] MEDS: SUCRALFATE 1 GM TAB PO SCH ×2 (08:45→13:51)
[2019-09-17] MEDS: CITALOPRAM 20 MG TAB PO SCH (08:46)
[2019-09-17] MEDS: METOCLOPRAMIDE HCL 10 MG TABLET PO SCH ×2 (08:46→13:51)
[2019-09-17] MEDS: GABAPENTIN 600 MG TAB PO SCH ×2 (08:46→13:51)
[2019-09-17] MEDS: ENOXAPARIN INJ 40 MG/0.4 ML SYR SQ SCH (08:46)
[2019-09-17] MEDS: ATORVASTATIN 10 MG TAB PO SCH (08:47)
[2019-09-17] MEDS: DULOXETINE HCL 60 MG CAP PO SCH (08:47)
[2019-09-17] MEDS: FOLIC ACID 1 MG TAB PO SCH (08:47)
[2019-09-17] MEDS: NICOTINE 21 MG/24 HR TDSY TD SCH (08:48)
[2019-09-17] MEDS: PANTOprazole 40 MG TAB PO SCH (08:48)
[2019-09-17] MEDS: LORazepam 1 MG TAB PO PRN (10:50)
--- NOTE | 2019-09-17 13:13 | Discharge Summary ---
Date of Service September 17, 2019 Principal Diagnosis Pt still has pain, mostly to her low back at this point. She has been OOB and walking around the room more than she had been able to. This is causing her pain, but she can manage. Some pain to LE. Minimal neck pain. Her appetite is better and she ate well yesterday for lunch and dinner. Her usual breakfast is coffee and orange juice, which she has been eating as well. Pt denies fever, SOB, chest pain, abd pain, n/v/c/d, LE swelling. Pt has decided she would like to d/c to home instead of rehab. She states she has felt better the last two days and is concerned about going to a facility in light of COVID-19. Discharge Exam Constitutional WD/WN, vitals as above Eyes normal visual oliva by confrontation and + anicteric sclerae Neck normal visual inspection and trachea midline Respiratory normal respiratory effort, lungs clear to auscultation Cardiovascular Rate/Rhythm: regular rate and regular rhythm Gastrointestinal (Abdomen) Inspection/Auscultation: abdomen not distended Percussion/Palpation: abdomen soft; abdomen nontender Musculoskeletal Head/Neck/Chest: normocephalic and head atraumatic Skin no rashes, warm and dry Neurologic awake; not confused Speech / Cognition: normal speech Psychiatric A+Ox3, euthymic affect Discharge Data Allergies Allergy/AdvReac Type Severity Reaction Status Date / Time fluoxetine AdvReac Dizziness Unverified 09/13/19 13:38 Consultations 09/13/19 16:12 ED Decision to Admit Stat 09/13/19 18:06 Consult Case Management - Discharge Planning Routine 09/14/19 16:55 Consult Orthopedic Surgery Routine Ordered Studies 09/13/19 13:17 CT abd pelvis IV con only Stat CT cervical spine wo con Stat CT chest w con Stat CT head/brain wo con Stat CT lumbar spine wo con Stat CT thoracic spine wo con Stat 09/13/19 18:06 MR brain wo con Routine 09/14/19 09:51 MR cervical spine wo con Routine MR lumbar spine wo con Routine MR thoracic spine wo con Routine Hospital Course (1) Gait instability: PT/OT evals - recs for rehab initially, however repeat evals today suggest home with HHN MRI brain without acute changes, MRI spine showing severe bilateral foraminal narrowing C5-6 - d/w ortho, not planning surgical intervention given no cord compression on f/ex/ext films Also noted for L1-2, L5-S1 bulging disc Given history of B12 def and neuropathy, may be that this is the etiology for all of the falls and weakness due to persistence despite B12 repletion f/u ortho in 2 weeks (2) Fall: CT Chest, cervical spine, head, lumbar spine - no acute processes As above (3) Back pain: Continue Toradol, [place], heat application CT spin as above (4) Fibromyalgia: continue duloxetine, gabapentin (5) COPD (chronic obstructive pulmonary disease): does not appear to take any inhalers (6) B12 deficiency: B12 is 1631, patient receiving B12 shots (7) Tobacco abuse: Encourage cessation (8) DVT prophylaxis: Continue enoxaparin, SCDs Planning for rehab, however evals improved over duration of admission. Pt states she is no longer comfortable with the idea of transferring to another facility given COVID concerns. Total Time Total Time Spent Total Time Spent (In Minutes): >30 Total Time Includes: Examination of the Patient, Discharge Planning, Medication Reconciliation, Communication With Other Providers and Other Discharge Plan Discharge Items Patient Disposition: Home - Home Health Services Reason For Visit: BACK PAIN,GAIT INSTABILITY Discharge Diagnosis: Ambulatory dysfunction Activity: As commented below Activity Comment: as recommended by PT/OT Non-emergency contact: Primary Care Provider and Surgeon Call non-emergency contact if: you have any medication questions, your symptoms worsen, your pain is not controlled and your pain is worsening Follow-up/Referrals: Bay Brush DO [Surgeon] - (2 weeks) Jose Patterson M.D. [Primary Care Provider] - (Please call your primary care doctor to see if you need to make a follow up appointment.) Diet: Regular Addtl Attending Provider Instructions: You will have home health physical and occupational therapy Pending Studies at Discharge: No Stand-Alone Forms: My Shock Treatment Management, Smoking Cessation Medications and DC Order Prescriptions: New acetaminophen [Mapap (acetaminophen)] 325 mg Tablet 650 mg PO Q4H PRN (Reason: pain) Qty: 30 RF: 0 hydrocodone-acetaminophen 5-325 mg tablet 1 tab PO Q8H PRN (Reason: pain) Qty: 30 RF: 0 trazodone 50 mg Tablet 50 mg PO HS Qty: 15 RF: 0 Continued celecoxib 200 mg capsule 200 mg PO DAILY RF: 0 gabapentin 600 mg tablet 600 mg PO TID RF: 0 trazodone 50 mg tablet 50 mg PO HS RF: 0 atorvastatin 10 mg tablet 10 mg PO DAILY RF: 0 citalopram 10 mg tablet 10 mg PO DAILY RF: 0 sucralfate 1 gram tablet 1 g PO QID RF: 0 topiramate 25 mg tablet 25 mg PO HS RF: 0 tramadol 50 mg tablet 100 mg PO Q6 RF: 0 pantoprazole 40 mg tablet,delayed release (DR/EC) 40 mg PO DAILY RF: 0 cyanocobalamin (vitamin B-12) 1,000 mcg/mL solution 1,000 mcg IM MONTHLY RF: 0 nicotine 21 mg/24 hr patch 24 hour 1 patch transdermal DAILY RF: 0 folic acid 1 mg tablet 1 mg PO DAILY RF: 0 lorazepam 1 mg tablet 1 mg PO TID PRN (Reason: Anxiety) RF: 0 metoclopramide HCl 10 mg tablet 10 mg PO TID RF: 0 duloxetine 60 mg capsule,delayed release(DR/EC) 60 mg PO DAILY RF: 0 Movantik 25 mg tablet 25 mg PO DAILY RF: 0 Emgality Pen 120 mg/mL Pen Injector 120 mg SUBCUT MONTHLY RF: 0 Discharge Orders: Discharge Order (Routine); Ordered 09/17/19 Ordered By: Selin Reynaga Admission Data Admit Date/Time: 09/15/19 09:29 Attending Provider: Selin Reynaga Admit Provider: Carlo Mendes Primary Care Provider: Jose Patterson Other Providers: Carlo Mendes ; Bay Brush Other Interventions: Discharge Summary Assessment (RN) Last Done: 09/17/19 13:32 DC Date/Time DO NOT enter until pt leaves facility: 09/17/19 14:47 Coding Level of Care Code D/C Day Management >30 mins Diagnoses Gait instability R26.81 Fall W19.XXXA Encounter type: initial encounter Back pain M54.9 Back pain laterality: bilateral Back pain location: back pain in unspecified location Chronicity: acute Fibromyalgia M79.7 COPD (chronic obstructive pulmonary disease) J44.9 B12 deficiency E53.8 Tobacco abuse Z72.0 DVT prophylaxis Z29.9
[2019-10-13] MEDS ORDERED: CYANOCOBALAMIN 1000 MCG/ML VIAL IM SCH (09:00)
== END 2019-09-17 14:47 | disposition home health service (06) ==
LOC: 2W 13:08 → ED 13:08 → SUATTDRO 17:21 → 2W 17:55
DX: F17.210 Nicotine dependence, cigarettes, uncomplicated; M50.122 Cervical disc disorder at C5-C6 level with radiculopathy; M79.7 Fibromyalgia; R26.9 Unspecified abnormalities of gait and mobility; M54.9 Dorsalgia, unspecified; E53.8 Deficiency of other specified B group vitamins; Z88.8 Allergy status to other drugs, medicaments and biological substances; Z91.81 History of falling; Z79.899 Other long term (current) drug therapy; J44.9 Chronic obstructive pulmonary disease, unspecified

== ENCOUNTER 2022-07-31 15:14 | Inpatient (IN) ==
--- NOTE | 2022-07-31 15:28 | Emergency Department Note ---
Impression & Plan Stroke-like symptoms, Anemia, High serum chloride ED Provider Note NAME: DRAKE VELASQUEZ AGE: 56 SEX: F : 1965 ARRIVES VIA: Ambulance INFORMANT: Patient ED PROVIDER(S): Jewel Gacria DO CHIEF COMPLAINT: diffuse weakness HPI: Patient is a 56-year-old female with past medical history of tobacco abuse, B12 deficiency, COPD, fibromyalgia who presents to the ER for initially bilateral weakness which started about an hour and a half prior to arrival. She admits about 2 weeks ago she is having weakness on the bilateral lower extremities and upper extremities. She now notes that her left side feels a little weaker. She was brought in by EMS who noticed a facial droop and left- sided weakness. Patient does have some nausea. No dysuria, urgency, or frequency. No other exacerbating or remitting factors. PAST MEDICAL HISTORY:See Below PAST SURGICAL HISTORY:See Below FAMILY HISTORY:See Below SOCIAL HISTORY:See Below HOME MEDICATIONS:See Below ALLERGIES:See Below VITALS:See Below PHYSICAL EXAMINATION: GENERAL: Sitting up in bed, alert, well appearing, well nourished, no distress, non-toxic EYE EXAM: normal conjunctiva. PERRL and EOM's intact. OROPHARYNX: no exudate, no erythema, lips, buccal mucosa, and tongue normal and mucous membranes are moist NECK: supple, no nuchal rigidity, no adenopathy, non-tender LUNGS: Clear to auscultation. Normal chest wall mechanics HEART: no murmurs, S1 normal and S2 normal ABDOMEN: abdomen soft, non-tender, normo-active bowel sounds, no masses, no rebound or guarding. UPPER EXTREMITIES: upper extremities are grossly normal. LOWER EXTREMITIES: No pitting edema. NEURO EXAM: Normal sensorium, cranial nerves II-XII intact, normal speech, dif ficult to interpret weakness of the left upper extremity as she resist movement in regards to flexion and extension at the elbow, no weakness of legs. No drift. Finger to nose intact. Gross sensation intact. MEDICAL DECISION MAKING: Patient is a 56-year-old female who presents the ER as a stroke alert via EMS. I received medical command call on this. IVs were established blood work was obtained. Labs show no significant leukocytosis. Mild anemia at 11.7. INR unr emarkable. BMP along LFTs bilirubin was unremarkable. Troponin was negative. On my exam patient had no slurred speech and questionable faint weakness of the left upper extremity but otherwise was neurologically intact. Stroke alert was called prior to arrival. There was a delay in TNK administration due to obtaining IV access as she was a difficult stick. She was evaluated by [facility] neurology. She was had an NIH of 3 and after discussion with her she would prefer to have TNK. This was discussed at length via telestroke. I discussed this with her at bedside as well briefly. She was in agreement. External records were reviewed. TNK was given. CTAs of the head and neck were negative. She will be admitted to the ICU. Discussed case with Dr. Marley gasca for further management and treatment. Triage Nursing notes reviewed. Limited review of prior medical records performed Vital Signs: reviewed and remarkable for no significant abnormalities Differential diagnosis: Differential Diagnosis includes but is not limited to ischemic Stroke, hemorrhagic stroke, bells palsy, mass, neoplasm, migraine headache, seizure, subarachnoid hemorrhage, TIA, and transient global amnesia. ER treatment provided: See below Diagnostics interpreted by me include EKG and cardiac monitoring as listed below: -Cardiac Monitoring: An order was placed for continuous cardiac monitoring. The monitor shows a rate of 80 with sinus rhythm. -ECG: Sinus rhythm rate 87 Normal axis No PVCs QTc 452 -Laboratory studies:Interpreted by me as stated above in MDM and shown below. Imaging studies: Xrays: As interpreted by me: Portable AP upright 1 view of the chest shows no focal infiltrate CTs show: CT angio of the head neck showed no acute pathology Consultation(s): Discussed with [facility] neurology who recommended TNK after discussion and evaluation of the patient. TNK was given. Discussed with Christina Mars for further management treatment Procedures:none Critical Care: I have personally spent 32-3-2- minutes of critical care time in the direct management of this patient. This includes bedside care, interpretation of diagnostic studies, and testing, discussion with consultants, patient, and family members, and other required patient management activities. This [] minutes is in excess of all separately billable procedures. 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 Feels Safe at Home: Yes Assistive Devices: None Allergies Allergies Allergy/AdvReac Type Severity Reaction Status Date / Time fluoxetine AdvReac Dizziness Unverified 09/13/19 13:38 Home Meds Home Medications Medication Instructions Recorded Confirmed celecoxib 200 mg capsule 200 mg PO BID 09/13/19 07/31/22 cyanocobalamin (vitamin B-12) 1,000 mcg IM MONTHLY 09/13/19 07/31/22 1,000 mcg/mL injection solution duloxetine 60 mg capsule,delayed 120 mg PO DAILY 09/13/19 07/31/22 release folic acid 1 mg tablet 1 mg PO DAILY 09/13/19 07/31/22 pantoprazole 40 mg tablet,delayed 40 mg PO DAILY 09/13/19 07/31/22 release ascorbic acid (vitamin C) 500 mg 500 mg PO DAILY 07/31/22 07/31/22 tablet (Vitamin C) aspirin 81 mg tablet,delayed 81 mg PO QAM 07/31/22 07/31/22 release buspirone 15 mg tablet 15 mg PO TID 07/31/22 07/31/22 cholecalciferol (vitamin D3) 25 25 mcg PO DAILY 07/31/22 07/31/22 mcg (1,000 unit) tablet (Vitamin D3) diltiazem HCl 180 mg 180 mg PO QAM 07/31/22 07/31/22 capsule,extended release 24 hr duloxetine 30 mg capsule,delayed 30 mg PO DAILY 07/31/22 07/31/22 release fentanyl 25 mcg/hr transdermal 1 patch transdermal Q72H 07/31/22 07/31/22 patch gabapentin 800 mg tablet 800 mg PO TID 07/31/22 07/31/22 hydrocodone 10 mg-acetaminophen 1 tab PO .EVERY 5 HOURS PRN low 07/31/22 07/31/22 325 mg tablet back pain hydroxyzine pamoate 50 mg capsule 50 mg PO TID PRN Itching 07/31/22 07/31/22 isosorbide mononitrate 30 mg 30 mg PO DAILY 07/31/22 07/31/22 tablet,extended release 24 hr nicotine 14 mg/24 hr daily 1 patch transdermal DAILY 07/31/22 07/31/22 transdermal patch nitroglycerin 0.4 mg sublingual 0.4 mg sublingual UD PRN Chest Pain 07/31/22 07/31/22 tablet polyethylene glycol 3350 17 17 g PO DAILY 07/31/22 07/31/22 gram/dose oral powder (Miralax) rosuvastatin 20 mg tablet 20 mg PO DAILY 07/31/22 07/31/22 Results & Data (ED) Vital Signs Vital Signs - 24 hr 07/31/22 15:47 07/31/22 15:58 07/31/22 16:16 Temperature 36.6 C Temperature Source Oral Pulse Rate 98 H Pulse Rate [Apical] 87 Respiratory Rate 18 18 Respiratory Effort / Characteristics Respiratory Depth Respiratory Pattern Blood Pressure 130/60 Blood Pressure [Left Arm] 142/68 H Blood Pressure Mean 83 Blood Pressure Mean [Left Arm] 92 Blood Pressure Position Lying Blood Pressure Position [Left Arm] Pulse Oximetry 93 95 Oxygen Delivery Method Room Air Room Air Room Air Sepsis Recent Fever Within 48 Hours No Sepsis New/Unexplained Change in Mental Status No Sepsis Action Taken by Nursing No Action Required 07/31/22 16:25 07/31/22 16:13 07/31/22 16:40 Temperature 36.7 C 36.5 C Temperature Source Temporal Artery Scan Oral Pulse Rate 92 H Pulse Rate [Apical] 90 90 Respiratory Rate 18 14 Respiratory Effort / Characteristics Respiratory Depth Normal Respiratory Pattern Blood Pressure Blood Pressure [Left Arm] 130/71 140/71 Blood Pressure Mean Blood Pressure Mean [Left Arm] 90 94 Blood Pressure Position Blood Pressure Position [Left Arm] Lying Pulse Oximetry 94 94 Oxygen Delivery Method Room Air Room Air Sepsis Recent Fever Within 48 Hours Sepsis New/Unexplained Change in Mental Status Sepsis Action Taken by Nursing 07/31/22 16:55 07/31/22 17:10 07/31/22 17:25 Temperature 37.0 C 36.8 C 36.9 C Temperature Source Oral Oral Oral Pulse Rate Pulse Rate [Apical] 83 95 H 82 Respiratory Rate 12 18 14 Respiratory Effort / Characteristics Non-Labored Respiratory Depth Normal Normal Respiratory Pattern Regular Blood Pressure Blood Pressure [Left Arm] 120/72 127/89 118/81 Blood Pressure Mean Blood Pressure Mean [Left Arm] 88 101 93 Blood Pressure Position Blood Pressure Position [Left Arm] Lying Lying Lying Pulse Oximetry 93 97 93 Oxygen Delivery Method Room Air Room Air Room Air Sepsis Recent Fever Within 48 Hours Sepsis New/Unexplained Change in Mental Status Sepsis Action Taken by Nursing 07/31/22 17:40 Temperature 36.8 C Temperature Source Oral Pulse Rate Pulse Rate [Apical] 90 Respiratory Rate 16 Respiratory Effort / Characteristics Non-Labored Respiratory Depth Normal Respiratory Pattern Blood Pressure Blood Pressure [Left Arm] 136/78 Blood Pressure Mean Blood Pressure Mean [Left Arm] 97 Blood Pressure Position Blood Pressure Position [Left Arm] Lying Pulse Oximetry 95 Oxygen Delivery Method Room Air Sepsis Recent Fever Within 48 Hours Sepsis New/Unexplained Change in Mental Status Sepsis Action Taken by Nursing Laboratory Data 07/31/22 15:54 07/31/22 15:54 Lab Results 07/31/22 07/31/22 07/31/22 Range/Units 15:53 15:54 15:54 WBC 7.74 (4.8-10.8) K/ul RBC 3.83 L (4.20-5.40) M/uL Hgb 11.7 L (12.0-16.0) g/dl Hct 35.8 L (37.0-47.0) % MCV 93.5 (80.0-100.0) fL MCH 30.5 (25.0-34.0) pg MCHC 32.7 (32.0-36.0) g/dL RDW Std Deviation 43.7 (36.4-46.3) fL RDW Coeff of Francis 12.8 (11.5-14.5) % Plt Count 274 (130-400) K/uL MPV 8.8 L (9.4-12.4) fL Immature Gran % (Auto) 0.4 % Neut % (Auto) 59.2 % Lymph % (Auto) 28.2 % [place] % (Auto) 11.6 % Eos % (Auto) 0.0 % Baso % (Auto) 0.6 % Neut # (Auto) 4.58 (1.40-6.50) K/uL Lymph # (Auto) 2.18 (1.2-3.4) K/uL [place] # (Auto) 0.90 H (0.11-0.59) K/uL Eos # (Auto) 0.00 (0-0.50) K/uL Baso # (Auto) 0.05 (0-0.2) K/uL Immature Gran # (Auto) 0.03 (0.01-0.20) K/uL PT 11.1 (9.0-12.0) Seconds INR 1.0 (0.9-1.1) APTT 20.9 L (21.0-31.0) Seconds PTT Ratio 0.8 Sodium (136-145) mmol/L Potassium (3.5-5.1) mmol/L Chloride (98-107) mmol/L Carbon Dioxide (21-32) mmol/L Anion Gap (3-11) BUN (6-23) mg/dl Creatinine (0.6-1.2) mg/dl Est Cr Clr Drug Dosing ml/min Est GFR ( Amer) ml/min Est GFR (Non-Af Amer) ml/min BUN/Creatinine Ratio (10-20) Glucose (70-99(Fasting)) mg/dl POC Glucose 122 H (70-99) mg/dl Calcium (8.5-10.1) mg/dl Magnesium (1.7-2.4) mg/dl Total Bilirubin (0.2-1.0) mg/dl AST (13-39) U/L ALT (7-52) U/L Alkaline Phosphatase (34-104) U/L Troponin I High Sens (0-14) pg/ml Total Protein (6.0-8.3) gm/dl Albumin (3.4-5.0) gm/dl Globulin (2.5-4.0) gm/dl Albumin/Globulin Ratio (0.9-2) SARS-CoV-2, RNA, NAAT (NEGATIVE) 07/31/22 07/31/22 Range/Units 15:54 16:39 WBC (4.8-10.8) K/ul RBC (4.20-5.40) M/uL Hgb (12.0-16.0) g/dl Hct (37.0-47.0) % MCV (80.0-100.0) fL MCH (25.0-34.0) pg MCHC (32.0-36.0) g/dL RDW Std Deviation (36.4-46.3) fL RDW Coeff of Francis (11.5-14.5) % Plt Count (130-400) K/uL MPV (9.4-12.4) fL Immature Gran % (Auto) % Neut % (Auto) % Lymph % (Auto) % [place] % (Auto) % Eos % (Auto) % Baso % (Auto) % Neut # (Auto) (1.40-6.50) K/uL Lymph # (Auto) (1.2-3.4) K/uL [place] # (Auto) (0.11-0.59) K/uL Eos # (Auto) (0-0.50) K/uL Baso # (Auto) (0-0.2) K/uL Immature Gran # (Auto) (0.01-0.20) K/uL PT (9.0-12.0) Seconds INR (0.9-1.1) APTT (21.0-31.0) Seconds PTT Ratio Sodium 138 (136-145) mmol/L Potassium 3.9 (3.5-5.1) mmol/L Chloride 108 H (98-107) mmol/L Carbon Dioxide 25 (21-32) mmol/L Anion Gap 5 (3-11) BUN 21 (6-23) mg/dl Creatinine 1.05 (0.6-1.2) mg/dl Est Cr Clr Drug Dosing 64.8 ml/min Est GFR ( Amer) 68.3 ml/min Est GFR (Non-Af Amer) 58.9 ml/min BUN/Creatinine Ratio 20.0 (10-20) Glucose 120 H (70-99(Fasting)) mg/dl POC Glucose (70-99) mg/dl Calcium 8.6 (8.5-10.1) mg/dl Magnesium 1.8 (1.7-2.4) mg/dl Total Bilirubin 0.3 (0.2-1.0) mg/dl AST 16 (13-39) U/L ALT 12 (7-52) U/L Alkaline Phosphatase 54 (34-104) U/L Troponin I High Sens 2.7 (0-14) pg/ml Total Protein 6.0 (6.0-8.3) gm/dl Albumin 3.4 (3.4-5.0) gm/dl Globulin 2.6 (2.5-4.0) gm/dl Albumin/Globulin Ratio 1.3 (0.9-2) SARS-CoV-2, RNA, NAAT NEGATIVE (NEGATIVE) Administered Medications Discontinued Medications Tenecteplase 25 mg/ Syringe 5 mls @ 60 mls/min IV NOW ONE; Protocol Stop: 07/31/22 16:27 Last Admin: 07/31/22 16:24 Dose: 60 mls/min Documented By: FRANCO Co-signed By: JUANITO Ioversol (Optiray 320 500ml) 114 ml IV ONCE ONE Stop: 07/31/22 15:47 Last Admin: 07/31/22 15:46 Dose: 114 ml Documented By: MARCELA Miscellaneous (Stat Iv) 1 each N/A NOW STA Stop: 07/31/22 16:17 Last Admin: 07/31/22 16:26 Dose: 1 each Documented By: FRANCO Sodium Chloride (Sodium Chloride 0.9% 10ml Flush) 20 ml IV NOW STA Stop: 07/31/22 16:17 Last Admin: 07/31/22 16:26 Dose: 20 ml Documented By: FRANCO Imaging Data Radiologist's Impression: Chest X-Ray 07/31/22 14:57 XR chest 1V portable HISTORY: 56 years-old Female neuro deficit, acute stroke suspected acute strokelike symptoms COMPARISON: Chest CT 09/13/2019 TECHNIQUE: AP view of the chest FINDINGS: Cardiomediastinal and hilar silhouettes are within normal limits. No pneumothor ax, pleural effusion, airspace consolidation or overt pulmonary edema. Bones of the chest appear grossly intact. IMPRESSION: No acute process. ACT 112: Negative or not required by law. The above report was generated using voice recognition software. It may contain grammatical, syntax or spelling errors. Electronically signed by: Randall Cee M.D. 07/31/2022 5:[address] 07/31/22 14:57 CT head/brain wo con CLINICAL HISTORY: 56 years-old Female with neuro deficit, acute stroke suspected. Acute strokelike symptoms TECHNIQUE: Multiple axial CT images of the head were obtained without contrast. A dose lowering technique was utilized adhering to the principles of ALARA. COMPARISON: Brain MRI 09/13/2019 FINDINGS: No acute intracranial hemorrhage, midline shift, intracranial mass, hydrocephalus, territorial ischemia or abnormal extra-axial collection. The calvarium is intact. The paranasal sinuses, mastoid air cells, and middle ear cavities are clear. IMPRESSION: No acute intracranial abnormality. ACT 112: Negative or not required by law. The above report was generated using voice recognition software. It may contain grammatical, syntax or spelling errors. Electronically signed by: Randall Cee M.D. 07/31/2022 4:25 PM Head CTA 07/31/22 14:57 CT angio head w con, CT angio neck with con CLINICAL HISTORY: 56 years-old Female with neuro deficit, acute stroke suspected. Acute strokelike symptoms COMPARISON STUDY: Head CT of same day TECHNIQUE: Following the IV administration of 114 cc of Optiray, CT angiogram of the head and neck was performed from the aortic arch to the skull apex. Images a re reviewed in the axial, sagittal, and coronal planes. 3-D MIPS images are created and assessed. IV contrast was administered without complication. All measurements were obtained according to NASCET criteria. A dose lowering technique was utilized adhering to the principles of ALARA. CT DOSE: 1113.59 mGy.cm FINDINGS: CT ANGIOGRAM OF THE HEAD AND NECK: Three-vessel morphology of the thoracic aortic arch. Patency of the innominate and imaged subclavian arteries. Mild to moderate atherosclerotic plaque of the carotid bulbs and proximal cervical segments of the internal carotid arteries resulting in less than 50% stenosis bilaterally. Additional calcified plaque of the cavernous, clinoid and supraclinoid segments without high-grade stenosis. The bilateral anterior and middle cerebral arteries are also patent with a least mild multifocal luminal narrowing throughout the left middle cerebral artery br anches.. Patent and codominant vertebral arteries. Moderate multifocal narrowing of the V4 segment right vertebral artery. The basilar and posterior cerebral arteries are patent. origin of the right posterior cerebral artery. There is no aneurysm, high-grade stenosis, or proximal branch occlusion identified. Dural sinuses appear patent. Lung apices appear clear. Unremarkable soft tissues. Degenerative changes of the cervical spine. IMPRESSION: Atherosclerosis without aneurysm, dissection, high-grade stenosis or arterial occlusion identified. ACT 112: Negative or not required by law. The above report was generated using voice recognition software. It may contain grammatical, syntax or spelling errors. Electronically signed by: Randall Cee M.D. 07/31/2022 4:14 PM Neck CTA 07/31/22 14:57 CT angio head w con, CT angio neck with con CLINICAL HISTORY: 56 years-old Female with neuro deficit, acute stroke suspected. Acute strokelike symptoms COMPARISON STUDY: Head CT of same day TECHNIQUE: Following the IV administration of 114 cc of Optiray, CT angiogram of the head and neck was performed from the aortic arch to the skull apex. Images are reviewed in the axial, sagittal, and coronal planes. 3-D MIPS images are created and assessed. IV contrast was administered without complication. All measurements were obtained according to NASCET criteria. A dose lowering technique was utilized adhering to the principles of ALARA. CT DOSE: 1113.59 mGy.cm FINDINGS: CT ANGIOGRAM OF THE HEAD AND NECK: Three-vessel morphology of the thoracic aortic arch. Patency of the innominate and imaged subclavian arteries. Mild to moderate atherosclerotic plaque of the carotid bulbs and proximal cervical segments of the internal carotid arteries resulting in less than 50% stenosis bilaterally. Additional calcified plaque of the cavernous, clinoid and supraclinoid segments without high-grade stenosis. The bilateral anterior and middle cerebral arteries are also patent with a least mild multifocal luminal narrowing throughout the left middle cerebral artery branches.. Patent and codominant vertebral arteries. Moderate multifocal narrowing of the V4 segment right vertebral artery. The basilar and posterior cerebral arteries are patent. origin of the right posterior cerebral artery. There is no aneurysm, high-grade stenosis, or proximal branch occlusion identified. Dural sinuses appear patent. Lung apices appear clear. Unremarkable soft tissues. Degenerative changes of the cervical spine. IMPRESSION: Atherosclerosis without aneurysm, dissection, high-grade stenosis or arterial occlusion identified. ACT 112: Negative or not required by law. The above report was generated using voice recognition software. It may contain grammatical, syntax or spelling errors. Electronically signed by: Randall Cee M.D. 07/31/2022 4:14 PM Discharge Plan Visit Data Chief Complaint: Stroke Alert Stated Complaint: STROKE ALERT ED Provider: Jewel Garcia Discharge Problem: Stroke-like symptoms, Anemia, High serum chloride Discharge Instructions Interventions: ED Discharge Assessment Last Done: 07/31/22 18:22
[2022-07-31] MEDS ORDERED: OPTIRAY 320 500ml IV ONE (15:46)
[2022-07-31 16:09] LABS: Basophils # (auto) 0.05 K/uL (0-0.2); Basophils % (auto) 0.6 %; Hematocrit (blood only) 35.8 % (37.0-47.0); Hemoglobin 11.7 g/dl (12.0-16.0); Immature Granulocytes # (auto) 0.03 K/uL (0.01-0.20); Immature Granulocytes % (auto) 0.4 %; Lymphocytes # (auto) 2.18 K/uL (1.2-3.4); Lymphocytes % (auto) 28.2 %; Mean Corpuscular Hemoglobin 30.5 pg (25.0-34.0); Mean Corpuscular Hgb Conc 32.7 g/dL (32.0-36.0); Mean Corpuscular Volume 93.5 fL (80.0-100.0); Mean Platelet Volume 8.8 fL (9.4-12.4); Monocytes % (auto) 11.6 %; Neutrophils # (auto) 4.58 K/uL (1.40-6.50); Neutrophils % (auto) 59.2 %; Platelet Count 274 K/uL (130-400); RDW Coefficient of Variation 12.8 % (11.5-14.5); RDW Standard Deviation 43.7 fL (36.4-46.3); Red Blood Count 3.83 M/uL (4.20-5.40); White Blood Count 7.74 K/ul (4.8-10.8)
[2022-07-31] MEDS ORDERED: SODIUM CHLORIDE 0.9% 10ML FLUSH IV STA (16:16)
[2022-07-31] MEDS ORDERED: STAT IV STA (16:16)
--- NOTE | 2022-07-31 16:16 | CT Scan Report ---
CT angio head w con, CT angio neck with con CLINICAL HISTORY: 56 years-old Female with neuro deficit, acute stroke suspected. Acute strokelike symptoms COMPARISON STUDY: Head CT of same day TECHNIQUE: Following the IV administration of 114 cc of Optiray, CT angiogram of the head and neck wa s performed from the aortic arch to the skull apex. Images are reviewed in the axial, sagittal, and c oronal planes. 3-D MIPS images are created and assessed. IV contrast was administered without complic ation. All measurements were obtained according to NASCET criteria. A dose lowering technique was uti lized adhering to the principles of ALARA. CT DOSE: 1113.59 mGy.cm FINDINGS: CT ANGIOGRAM OF THE HEAD AND NECK: Three-vessel morphology of the thoracic aortic arch. Patency of the innominate and imaged subclavian arteries. Mild to moderate atherosclerotic plaque of the carotid bulbs and proximal cervical segments of the internal carotid arteries resulting in less than 50% stenosis bilaterally. Additional calcifi ed plaque of the cavernous, clinoid and supraclinoid segments without high-grade stenosis. The bilate ral anterior and middle cerebral arteries are also patent with a least mild multifocal luminal narrow ing throughout the left middle cerebral artery branches.. Patent and codominant vertebral arteries. Moderate multifocal narrowing of the V4 segment right verte bral artery. The basilar and posterior cerebral arteries are patent. origin of the right continuous mining machine lode miner ior cerebral artery. There is no aneurysm, high-grade stenosis, or proximal branch occlusion identifi ed. Dural sinuses appear patent. Lung apices appear clear. Unremarkable soft tissues. Degenerative changes of the cervical spine. IMPRESSION: Atherosclerosis without aneurysm, dissection, high-grade stenosis or arterial occlusion i dentified. ACT 112: Negative or not required by law. The above report was generated using voice recognition software. It may contain grammatical, syntax o r spelling errors. Electronically signed by: Randall Cee M.D. 07/31/2022 4:14 PM
[2022-07-31 16:26] LABS: Albumin Globulin Ratio 1.3 (0.9-2); Albumin Level 3.4 gm/dl (3.4-5.0); Bilirubin,Total 0.3 mg/dl (0.2-1.0); Calcium 8.6 mg/dl (8.5-10.1); Creatinine Clr Calc Pharmacy 64.8 ml/min; Est GFR (African American) 68.3 ml/min; Est GFR (Non-African American) 58.9 ml/min; Globulin 2.6 gm/dl (2.5-4.0); Magnesium 1.8 mg/dl (1.7-2.4); Potassium 3.9 mmol/L (3.5-5.1)
[2022-07-31] MEDS ORDERED: TENECTEPLASE 25 MG in SYRINGE 0 ML IV ONE (16:26)
--- NOTE | 2022-07-31 16:26 | CT Scan Report ---
CT head/brain wo con CLINICAL HISTORY: 56 years-old Female with neuro deficit, acute stroke suspected. Acute strokelike s ymptoms TECHNIQUE: Multiple axial CT images of the head were obtained without contrast. A dose lowering tech nique was utilized adhering to the principles of ALARA. COMPARISON: Brain MRI 09/13/2019 FINDINGS: No acute intracranial hemorrhage, midline shift, intracranial mass, hydrocephalus, territorial ischem ia or abnormal extra-axial collection. The calvarium is intact. The paranasal sinuses, mastoid air cells, and middle ear cavities are clear . IMPRESSION: No acute intracranial abnormality. ACT 112: Negative or not required by law. The above report was generated using voice recognition software. It may contain grammatical, syntax o r spelling errors. Electronically signed by: Randall Cee M.D. 07/31/2022 4:25 PM
[2022-07-31] MEDS ORDERED: No Aspirin within 24hrs of THROMBOLYTIC-Stroke PO SCH (16:30)
[2022-07-31 16:32] LABS: Troponin I High Sensitivity 2.7 pg/ml (0-14)
[2022-07-31 16:46] LABS: Partial Thromboplastin Ratio 0.8; Partial Thromboplastin Time 20.9 Seconds (21.0-31.0); Prothrombin Time 11.1 Seconds (9.0-12.0)
--- NOTE | 2022-07-31 17:04 | History & Physical Report ---
Date of Service July 31, 2022 Assessment & Plan (1) Stroke-like symptoms: Plan: Strokelike symptoms Dysarthria, left arm, left leg weakness which began suddenly at 2 PM 07/31/2022 Tenecteplase given at 1624 Patient reports improvement in paresthesia of hands and feet, some improved strength since tenecteplase given. Resolution of dysarthria CTAH/N: Atherosclerosis without aneurysm, dissection, high-grade stenosis, or arterial occlusion - CThead: No acute findings EKG: NSR, no ST segment changes. QTc 452. No territorial ST/T wave changes Patient with past history of suspected TIA without residual deficits, greater than [id number] tobacco history, hypertension Patient with difficulty swallowing at bedside dysphagia screen following tenecteplase. This is new for her. Remains n.p.o. Admit to ICU for postthrombolytic protocol. Repeat CThead in 12 hours, MRI pending. No IV sticks. BP control per protocol, patient is currently well controlled with 118/81 on assessment (2) Herniation of cervical intervertebral disc with radiculopathy: Plan: Patient with history of herniated cervical disc, and reportedly with lumbar stenosis Reports that she has had a back MRI in the past, although not recently. Has had chronic low back pain with some left-sided leg pain/weakness which other than the sudden change at 2 PM had been at baseline Complete stroke eval above, defer lumbar MRI (3) Tobacco abuse: Plan: Nicotine patch ordered Cessation encouraged (4) B12 deficiency: (5) COPD (chronic obstructive pulmonary disease): Plan: No PFTs available for review Patient reports that she has used albuterol intermittently in the past, no recent wheezing and no daily inhalers Again tobacco cessation recommended, no wheezing on admitting exam, can follow-up with outpatient PFTs (6) Fibromyalgia: Plan: Continued home meds when able to tolerate p.o. Fentanyl patch continued (7) CAD (coronary artery disease): Plan: Per patient 50% nonobstructive disease No stents, no history of NM Continue statin, isosorbide, diltiazem when able to tolerate p.o. (8) DVT prophylaxis: (9) Migraine: Plan: No migraine at time of assessment Follow-up for CVA eval as an above (10) Hypertension: Plan: Normotensive on admission. Patient took medications this morning. Resume diltiazem, isosorbide in morning if tolerating p.o. History of Present Illness Primary Care Provider: Jose Patterson Olga Warren is a 56-year-old female with a past medical history of COPD, tobacco abuse, herniated cervical intervertebral disc spondylosis at C5-C6 not recommended for surgical intervention, and ambulatory dysfunction who presents as a stroke alert. Presents to the emergency department for bilateral weakness which began 90 minutes prior to arrival. Currently with left-sided weakness, EMS facial droop Last Normal: 2pm Patient reports she was in her otherwise normal state of health until 2 PM this afternoon when she was attempting to shower in the bathroom when she noticed that her arms were much weaker than normal and she was not able to lift her arms above her head to wash her hair. Her left week was much more weak than her right. She did call her sister who called 911 for prompt evaluation in the ER. Patient was noted by EMS to have a slight left-sided facial droop. Per patient she also felt like she could understand speech, and knew the words she wanted to say, but had a feeling like her "mouth was full of marbles "and had difficulty getting the words out. She also noted a feeling of tingling in her left jaw and fingers bilaterally. She had taken her morning medications as usual. Has a fentanyl patch in place for fibromyalgia and chronic pain, denies additional doses of pain medicine before symptom onset. She has a history of tobacco abuse of more than 35 years 2 pack/day now cutting back to 1/2 pack/day recently. No alcohol use. History of prior suspected TIA without residual deficit. Has history of CAD which underwent a cardiac catheterization previously but was found to have mild nonobstructing coronary disease, she has not had a heart attack and has no stents. Denies heart failure and reports she has had heart testing including an ultrasound performed. No history of heart failure. She does endorse chronic left-sided weakness with pain that will shoot from her left thigh down into her left lower leg. Has a chronic back pain. She feels she has had some chronic weakness with this, feels her symptoms have been worse than normal since 2 PM. She reports that she has had a lumbar MRI in the past, which showed a slightly protruding disc but surgical intervention was not recommended. Received TNKase while in the ER. Post TNKase patient reports that she feels her symptoms have somewhat improved. Dysarthria has resolved. Tingling in her hands has almost completely resolved. She has no numbness/tingling in her right hand, and it is about 90% resolved in her left hand, slightly affecting the distal tips of all 5 fingers. She reports she continues to feel a little more weak than normal in her left hand, and left leg. Right arm and leg strength feels normal to her. She feels like her vision is a little bit foggy/slightly blurry "like being underwater "but does not have any field cuts, and vision is not changed by covering either eye. Per outside pharmacy review: Last updated 2019. PDMP: Per month filling 150 (30-day supply) of hydrocodoneacetaminophen 103 25 in addition to fentanyl 50 mcg/h patch, quantity 10 for 30-day supply. Medications reconciled: Aspirin 81 mg daily BuSpar 15 3 times daily NSAIDs twice daily, narcotics as above Diltiazem 180 mg p.o. in the morning Duloxetine 150 mg daily Gabapentin 800 mg 3 times daily Hydroxyzine 50 3 times daily as needed Isosorbide mononitrate 30 mg daily Pantoprazole 40 mg Rosuvastatin 20 mg daily Allergies Allergy/AdvReac Type Severity Reaction Status Date / Time fluoxetine AdvReac Dizziness Unverified 09/13/19 13:38 Home Medications Medication Instructions Recorded Confirmed Type celecoxib 200 mg capsule 200 mg PO BID 09/13/19 07/31/22 History cyanocobalamin (vitamin B-12) 1,000 mcg IM MONTHLY 09/13/19 07/31/22 History 1,000 mcg/mL injection solution duloxetine 60 mg capsule,delayed 120 mg PO DAILY 09/13/19 07/31/22 History release folic acid 1 mg tablet 1 mg PO DAILY 09/13/19 07/31/22 History pantoprazole 40 mg tablet,delayed 40 mg PO DAILY 09/13/19 07/31/22 History release ascorbic acid (vitamin C) 500 mg 500 mg PO DAILY 07/31/22 07/31/22 History tablet (Vitamin C) aspirin 81 mg tablet,delayed 81 mg PO QAM 07/31/22 07/31/22 History release buspirone 15 mg tablet 15 mg PO TID 07/31/22 07/31/22 History cholecalciferol (vitamin D3) 25 25 mcg PO DAILY 07/31/22 07/31/22 History mcg (1,000 unit) tablet (Vitamin D3) diltiazem HCl 180 mg 180 mg PO QAM 07/31/22 07/31/22 History capsule,extended release 24 hr duloxetine 30 mg capsule,delayed 30 mg PO DAILY 07/31/22 07/31/22 History release fentanyl 25 mcg/hr transdermal 1 patch transdermal Q72H 07/31/22 07/31/22 History patch gabapentin 800 mg tablet 800 mg PO TID 07/31/22 07/31/22 History hydrocodone 10 mg-acetaminophen 1 tab PO .EVERY 5 HOURS PRN low 07/31/22 07/31/22 History 325 mg tablet back pain hydroxyzine pamoate 50 mg capsule 50 mg PO TID PRN Itching 07/31/22 07/31/22 History isosorbide mononitrate 30 mg 30 mg PO DAILY 07/31/22 07/31/22 History tablet,extended release 24 hr nicotine 14 mg/24 hr daily 1 patch transdermal DAILY 07/31/22 07/31/22 History transdermal patch nitroglycerin 0.4 mg sublingual 0.4 mg sublingual UD PRN Chest Pain 07/31/22 07/31/22 History tablet polyethylene glycol 3350 17 17 g PO DAILY 07/31/22 07/31/22 History gram/dose oral powder (Miralax) rosuvastatin 20 mg tablet 20 mg PO DAILY 07/31/22 07/31/22 History Past Med/Surg History Medical History (Updated 07/31/22 @ 17:52 by Sanjeev Mario MD) CAD (coronary artery disease) COPD (chronic obstructive pulmonary disease) Fibromyalgia Herniation of cervical intervertebral disc with radiculopathy Hypertension Migraine PVD (peripheral vascular disease) Social History Smoking Status: Current every day smoker Cigarettes Per Day: 24; Second Hand Exposure: Yes; Hx Alcohol Use: No Hx Substance Use: No Preferred Language: Stateless Communication Ability: Effective 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 NAD. Cooperative. HEENT: Atraumatic, normocephalic. Vision/hearing grossly intact. Pupils equal and reactive to light. Pulm: CTAB A&P. -wheezes, -rales, -rhonchi. Symmetrical chest rise. No increased work of breathing. No respiratory distress. Cardiac: RRR, -mrg. Radial pulses intact and symmetrical. Abdominal: Nontender, nondistended, soft. BS present. Extremities: Sensation of soft touch intact in right upper extremity and right lower extremity without deficit. Right marzipan molder strength, elbow flexion/extension, shoulder flexion, right hip flexion while laying in bed, and right ankle dorsi/plantarflexion 5/5. Left marzipan molder strength 4+/5, elbow flexion 5/5, hip flexion in bed 4 -/5, ankle dorsiflexion/plantarflexion 4+/5. Patient reports she has had poor blood flow in her legs, cap refill is brisk in the feet bilaterally and PT and DP pulses are intact bilaterally to Doppler. Results & Data Results & Data ([facility]) Vital Signs (Past 12 Hours) Vital Signs Temp Pulse Pulse Resp BP BP Pulse Ox 07/31/22 16:55 37.0 C 83 12 120/72 93 07/31/22 16:40 36.5 C 90 14 140/71 94 07/31/22 16:13 92 H 07/31/22 16:25 36.7 C 90 18 130/71 94 07/31/22 16:16 87 18 142/68 H 95 07/31/22 15:58 07/31/22 15:47 36.6 C 98 H 18 130/60 93 O2 Del Method 07/31/22 16:55 Room Air 07/31/22 16:40 Room Air 07/31/22 16:13 07/31/22 16:25 Room Air 07/31/22 16:16 Room Air 07/31/22 15:58 Room Air 07/31/22 15:47 Room Air PG Care Time/CCT Total # of Minutes Spent Total Time Spent with Patient: Total time spent is greater than 50% in coordination of care (as documented) at patient's floor/unit and/or counseling patient: Coding Level of Care Code 12674 INT INP/OBS CARE 3/75MIN Diagnoses Stroke-like symptoms R29.90 Herniation of cervical intervertebral disc with radiculopathy M50.10 Tobacco abuse Z72.0 B12 deficiency E53.8 COPD (chronic obstructive pulmonary disease) J44.9 Fibromyalgia M79.7 CAD (coronary artery disease) I25.10 DVT prophylaxis Z29.9 Migraine G43.909 Hypertension I10
--- NOTE | 2022-07-31 17:39 | XRay Report ---
XR chest 1V portable HISTORY: 56 years-old Female neuro deficit, acute stroke suspected acute strokelike symptoms COMPARISON: Chest CT 09/13/2019 TECHNIQUE: AP view of the chest FINDINGS: Cardiomediastinal and hilar silhouettes are within normal limits. No pneumothorax, pleural effusion, airspace consolidation or overt pulmonary edema. Bones of the chest appear grossly intact. IMPRESSION: No acute process. ACT 112: Negative or not required by law. The above report was generated using voice recognition software. It may contain grammatical, syntax o r spelling errors. Electronically signed by: Randall Cee M.D. 07/31/2022 5:37 PM
[2022-07-31] MEDS ORDERED: LABETALOL HCL IV 5 MG/ML 20ML IV PRN (18:49)
[2022-07-31] MEDS ORDERED: PHARMACIST DISCHARGE MED REC CONSULT PRN (18:49)
[2022-07-31] MEDS ORDERED: fentaNYL 25 MCG/HR TDSY TD SCH (19:00)
--- NOTE | 2022-07-31 19:10 | Critical Care Consultation ---
Date of Consultation July 31, 2022 Assessment & Plan (1) Stroke-like symptoms: (2) CAD (coronary artery disease): (3) Herniation of cervical intervertebral disc with radiculopathy: (4) COPD (chronic obstructive pulmonary disease): (5) Fibromyalgia: (6) Migraine: (7) Hypertension: Plan Reason Critically Ill: 56 YOF with onset of stroke like symptoms, deemed TNKase candidate NIHSS currently 6. Admit to ICU for neurological examinations, hemodyanmic monitoring, blood pressure control. Await MRI, ECHO. Neuro - Stroke like symptoms, acute ischemic stroke received TNKase, Fibromyalgia, chronic back pain with radicular symptoms left lower leg, migraine s - Post TNKase administratioin - CT and angios without LVO, high grade stenosis, does have ICAD with plaque carotid bulbs and cervical segments. - Introduce high dose statin - Atorvastatin 60mg - Continue ASA daily when able - appreciate neurological evaluation - Patient states she has been screened previously for SANJIV - STOPBANG- 4- consider rescreening or nocturnal puls oximetry study - Telemetry for 24 hours at least evaluate for arrhythmia- consider elongated telemetry monitoring device at discharge - ECHO with bubble study pending - HTN allow permissive HTN Goal <180- prn labetalol and hydralazine as needed- has not required - Repeat CT scan of head with any changes otherwise 24 hours post TNKase - Once passes swallow eval- reinstitute gabapentin, continue fentanyl patch for her chronic pain Cardiac - CAD, HTN, HLD - Unsure of her previous workups or evaluations for this - Currently without chest pain/anginal symptoms and ECG on arrival without STEMI - Mild elevation of HScTNI without ECG changes - favoring demand- recheck post 24 hour TNKase - BP control as above - would favor restarting IMDUR in morning as long as neurologically stable to avoid rebound or symptoms - NTG PRN Respiratory - Everyday smoker- has been reducing, COPD - carries diagnosis of COPD on chart- however no PFTS for review and on no inhalers - follow - nicotene patch added - smoking cessation education/assistance will be needed GI - NO acute needs Advance diet as able once passes swallow eval RENAL/LYTES - No acute needs - No acute needs ENDO - No acute needs BG checks goal <180mg/dl HEME - Anemia chronic - normochromic normocytic on today's diff- on b12 therapy at home - follow tranfuse for active bleed- or HGB <8 with symptoms ID - No concern for acute infection/mimic at this time LINES/IV ACCESS - PIV, Continue use of these lines DVT PROPHYLAXIS - SCDS, Chemoprophyaxis contraindicated following TNKase at this time DISPO: ICU 24 hours following TNKase administration I have personally spent 50 minutes of critical care time in the direct management of this patient. This is a life/limb threatening event. This includes time spent evaluating patient, direct bedside care, chart review, placing orders, interpretation of diagnostic studies, discussion with consultants, patient, and family members, as well as other required patient management activities. This time is exclusive of all separately billable procedures, and separate from and in addition to any other critical care service time. Thank you for allowing us to participate in the care of this patient. Please refer to my attending physician's documentation for any further recommendations. History of Present Illness Reason for Consultation: Stroke like symtpoms received TNKase Requesting Physician: Sanjeev Mario Attending Physician: Sanjeev Mario MD History of Present Illness 56 YOF with medical history of: Current every day smoker 1/2 PPD, HTN, HLD, Migraine, COPD, Chronic back pain with Left lower leg radiculopathy symptoms. Patient reports that she was in the shower this afternoon and initially noted that her left arm and left leg felt weaker than normal. She orginailly thought that it was just her back pain and left leg acting up but as her shower progressed, she noted that she could not lift up her left arm. She got out of the shower and noted that her left leg now required her to help drag it out of the shower, she noticed some blurring vision bilaterally as well as her speech felt "heavy and thick". She then called EMS and was able to get herself dressed. Upon arrival to the EMD her reported NIHSS was 3 she was stroke alerted had CT head, CT angio head and neck completed. She was deemed a TNKase candidate and was administered TNKase at 1624. Patient was then admitted to the ICU by hospitalist service. Patient states that her symptoms feel markedly improved. Remains with mild facial droop, mild dysarthria, drift of left upper and lower leg, ataxia left upper. Vision changes appear to be gone. Follow neurological exams, hemodynamics, await MRI and ECHO with bubble study. COVID test on admission is: NEGATIVE Allergies Allergy/AdvReac Type Severity Reaction Status Date / Time fluoxetine AdvReac Dizziness Unverified 09/13/19 13:38 Home Medications Medication Instructions Recorded Confirmed Type celecoxib 200 mg capsule 200 mg PO BID 09/13/19 07/31/22 History cyanocobalamin (vitamin B-12) 1,000 mcg IM MONTHLY 09/13/19 07/31/22 History 1,000 mcg/mL injection solution duloxetine 60 mg capsule,delayed 120 mg PO DAILY 09/13/19 07/31/22 History release folic acid 1 mg tablet 1 mg PO DAILY 09/13/19 07/31/22 History pantoprazole 40 mg tablet,delayed 40 mg PO DAILY 09/13/19 07/31/22 History release ascorbic acid (vitamin C) 500 mg 500 mg PO DAILY 07/31/22 07/31/22 History tablet (Vitamin C) aspirin 81 mg tablet,delayed 81 mg PO QAM 07/31/22 07/31/22 History release buspirone 15 mg tablet 15 mg PO TID 07/31/22 07/31/22 History cholecalciferol (vitamin D3) 25 25 mcg PO DAILY 07/31/22 07/31/22 History mcg (1,000 unit) tablet (Vitamin D3) diltiazem HCl 180 mg 180 mg PO QAM 07/31/22 07/31/22 History capsule,extended release 24 hr duloxetine 30 mg capsule,delayed 30 mg PO DAILY 07/31/22 07/31/22 History release fentanyl 25 mcg/hr transdermal 1 patch transdermal Q72H 07/31/22 07/31/22 History patch gabapentin 800 mg tablet 800 mg PO TID 07/31/22 07/31/22 History hydrocodone 10 mg-acetaminophen 1 tab PO .EVERY 5 HOURS PRN low 07/31/22 07/31/22 History 325 mg tablet back pain hydroxyzine pamoate 50 mg capsule 50 mg PO TID PRN Itching 07/31/22 07/31/22 History isosorbide mononitrate 30 mg 30 mg PO DAILY 07/31/22 07/31/22 History tablet,extended release 24 hr nicotine 14 mg/24 hr daily 1 patch transdermal DAILY 07/31/22 07/31/22 History transdermal patch nitroglycerin 0.4 mg sublingual 0.4 mg sublingual UD PRN Chest Pain 07/31/22 07/31/22 History tablet polyethylene glycol 3350 17 17 g PO DAILY 07/31/22 07/31/22 History gram/dose oral powder (Miralax) rosuvastatin 20 mg tablet 20 mg PO DAILY 07/31/22 07/31/22 History Patient History Medical History CAD (coronary artery disease) COPD (chronic obstructive pulmonary disease) Fibromyalgia Herniation of cervical intervertebral disc with radiculopathy Hypertension Migraine PVD (peripheral vascular disease) Family History (Updated 07/31/22 @ 20:54 by BRAULIO Marvin) Other COPD (chronic obstructive pulmonary disease) Diabetes Dyslipidemia Heart disease Hypertension Social History Smoking Status: Current every day smoker Cigarettes Per Day: 24; Second Hand Exposure: No; Do You Dip or Chew Tobacco: No; Tobacco Cessation Education Requested by Patient: No Hx Alcohol Use: No Hx Substance Use: No Preferred Language: Pashto Communication Ability: Effective Metal Bonder Required: No Beliefs That Will Affect Care: None Current Living Situation: Alone Other Information That Helps Us Care for You: No Feels Safe at Home: Yes Safety Concerns: Feels Safe At This Time Assistive Devices: Cane, Denture - Upper, Denture - Lower, Glasses and Walker Review of Systems Review of Systems: REVIEW OF SYSTEMS: Constitutional: No fever, sweats or chills Eyes: (+) vision changes- resolved- No diplopia, no worsening or blurred vision ENT: normal hearing, no trouble swallowing Respiratory: No cough, sputum, dyspnea at rest or on exertion Cardiovascular: No chest pain, tightness or palpitations Abdomen: No pain, nausea, vomiting, diarrhea or constipation Musculoskeletal: (+) chronic low back pain with left leg symptoms, no joint pain, calf pain, swelling Neurologic: (+ weakness, numbness/tingling, or balance problems Psychiatric: No anxiety or depression Skin: No rash or itch Physical Exam Physical Exam: PHYSICAL EXAM: General: awake, alert, no apparent distress Head: Normocephalic, atraumatic ENT: mucous membranes dry Neuro: AAO x 3, speech slightly slurred but appropriate, strength intact bilaterally 5/5, sensation intact and equal all extremities and dermatomes, pronator drift left upper, ataxia left upper and lower, facial droop mild left, no visual deficits. NIHSS- 6 Chest: equal rise and fall of the chest, no accessory muscle use, no heaves or thrills, Clear to auscultation, on room air, Cardiac: Regular rate and rhythm, telemetry reviewed-NSR, skin warm dry, cap refill <3 seconds, peripheral pulses +2 no JVD, no murmur, no edema GI: NABS x 4 quadrants, soft, nontender to palpation, no rebound, guarding or tenderness : Spontaneously voiding, no pain, no CVA tenderness, Extremities: Normal inspection, no peripheral edema or erythema, calfs nontender to palpation Psych: Normal mood and affect Skin: no rash or erythema Results & Data Results & Data ([facility]) Vital Signs (Past 12 Hours) Vital Signs Temp Pulse Pulse Resp BP BP Pulse Ox 07/31/22 18:25 82 18 123/73 94 07/31/22 18:22 82 18 126/79 94 07/31/22 18:10 36.9 C 81 14 117/65 95 07/31/22 17:55 36.9 C 81 16 149/75 H 94 07/31/22 17:40 36.8 C 90 16 136/78 95 07/31/22 17:25 36.9 C 82 14 118/81 93 07/31/22 17:10 36.8 C 95 H 18 127/89 97 07/31/22 16:55 37.0 C 83 12 120/72 93 07/31/22 16:40 36.5 C 90 14 140/71 94 07/31/22 16:13 92 H 07/31/22 16:25 36.7 C 90 18 130/71 94 07/31/22 16:16 87 18 142/68 H 95 07/31/22 15:58 07/31/22 15:47 36.6 C 98 H 18 130/60 93 O2 Del Method 07/31/22 18:25 Room Air 07/31/22 18:22 Room Air 07/31/22 18:10 Room Air 07/31/22 17:55 Room Air 07/31/22 17:40 Room Air 07/31/22 17:25 Room Air 07/31/22 17:10 Room Air 07/31/22 16:55 Room Air 07/31/22 16:40 Room Air 07/31/22 16:13 07/31/22 16:25 Room Air 07/31/22 16:16 Room Air 07/31/22 15:58 Room Air 07/31/22 15:47 Room Air Laboratory Results Abnormal lab results 07/31/22 07/31/22 07/31/22 Range/Units 15:53 15:54 15:54 RBC 3.83 L (4.20-5.40) M/uL Hgb 11.7 L (12.0-16.0) g/dl Hct 35.8 L (37.0-47.0) % MPV 8.8 L (9.4-12.4) fL [place] # (Auto) 0.90 H (0.11-0.59) K/uL APTT 20.9 L (21.0-31.0) Seconds Chloride (98-107) mmol/L Glucose (70-99(Fasting)) mg/dl POC Glucose 122 H (70-99) mg/dl 07/31/22 Range/Units 15:54 RBC (4.20-5.40) M/uL Hgb (12.0-16.0) g/dl Hct (37.0-47.0) % MPV (9.4-12.4) fL [place] # (Auto) (0.11-0.59) K/uL APTT (21.0-31.0) Seconds Chloride 108 H (98-107) mmol/L Glucose 120 H (70-99(Fasting)) mg/dl POC Glucose (70-99) mg/dl Diagnostic Findings Chest X-Ray 07/31/22 14:57 XR chest 1V portable HISTORY: 56 years-old Female neuro deficit, acute stroke suspected acute strokelike symptoms COMPARISON: Chest CT 09/13/2019 TECHNIQUE: AP view of the chest FINDINGS: Cardiomediastinal and hilar silhouettes are within normal limits. No pneumothorax, pleural effusion, airspace consolidation or overt pulmonary edema. Bones of the chest appear grossly intact. IMPRESSION: No acute process. ACT 112: Negative or not required by law. The above report was generated using voice recognition software. It may contain grammatical, syntax or spelling errors. Electronically signed by: Randall Cee M.D. 07/31/2022 5:[address] 07/31/22 14:57 CT head/brain wo con CLINICAL HISTORY: 56 years-old Female with neuro deficit, acute stroke suspected. Acute strokelike symptoms TECHNIQUE: Multiple axial CT images of the head were obtained without contrast. A dose lowering technique was utilized adhering to the principles of ALARA. COMPARISON: Brain MRI 09/13/2019 FINDINGS: No acute intracranial hemorrhage, midline shift, intracranial mass, hydrocephalus, territorial ischemia or abnormal extra-axial collection. The calvarium is intact. The paranasal sinuses, mastoid air cells, and middle ear cavities are clear. IMPRESSION: No acute intracranial abnormality. ACT 112: Negative or not required by law. The above report was generated using voice recognition software. It may contain grammatical, syntax or spelling errors. Electronically signed by: Randall Cee M.D. 07/31/2022 4:25 PM Head CTA 07/31/22 14:57 CT angio head w con, CT angio neck with con CLINICAL HISTORY: 56 years-old Female with neuro deficit, acute stroke suspected. Acute strokelike symptoms COMPARISON STUDY: Head CT of same day TECHNIQUE: Following the IV administration of 114 cc of Optiray, CT angiogram of the head and neck was performed from the aortic arch to the skull apex. Images are reviewed in the axial, sagittal, and coronal planes. 3-D MIPS images are created and assessed. IV contrast was administered without complication. All measurements were obtained according to NASCET criteria. A dose lowering technique was utilized adhering to the principles of ALARA. CT DOSE: 1113.59 mGy.cm FINDINGS: CT ANGIOGRAM OF THE HEAD AND NECK: Three-vessel morphology of the thoracic aortic arch. Patency of the innominate and imaged subclavian arteries. Mild to moderate atherosclerotic plaque of the carotid bulbs and proximal cervical segments of the internal carotid arteries resulting in less than 50% stenosis bilaterally. Additional calcified plaque of the cavernous, clinoid and supraclinoid segments without high-grade stenosis. The bilateral anterior and middle cerebral arteries are also patent with a least mild multifocal luminal narrowing throughout the left middle cerebral artery branches.. Patent and codominant vertebral arteries. Moderate multifocal narrowing of the V4 segment right vertebral artery. The basilar and posterior cerebral arteries are patent. origin of the right posterior cerebral artery. There is no ane urysm, high-grade stenosis, or proximal branch occlusion identified. Dural sinuses appear patent. Lung apices appear clear. Unremarkable soft tissues. Degenerative changes of the cervical spine. IMPRESSION: Atherosclerosis without aneurysm, dissection, high-grade stenosis or arterial occlusion identified. ACT 112: Negative or not required by law. The above report was generated using voice recognition software. It may contain grammatical, syntax or spelling errors. Electronically signed by: Randall Cee M.D. 07/31/2022 4:14 PM Neck CTA 07/31/22 14:57 CT angio head w con, CT angio neck with con CLINICAL HISTORY: 56 years-old Female with neuro deficit, acute stroke suspected. Acute strokelike symptoms COMPARISON STUDY: Head CT of same day TECHNIQUE: Following the IV administration of 114 cc of Optiray, CT angiogram of the head and neck was performed from the aortic arch to the skull apex. Images are reviewed in the axial, sagittal, and coronal planes. 3-D MIPS images are created and assessed. IV contrast was administered without complication. All measurements were obtained according to NASCET criteria. A dose lowering t echnique was utilized adhering to the principles of ALARA. CT DOSE: 1113.59 mGy.cm FINDINGS: CT ANGIOGRAM OF THE HEAD AND NECK: Three-vessel morphology of the thoracic aortic arch. Patency of the innominate and imaged subclavian arteries. Mild to moderate atherosclerotic plaque of the carotid bulbs and proximal cervical segments of the internal carotid arteries resulting in less than 50% stenosis bilaterally. Additional calcified plaque of the cavernous, clinoid and supraclinoid segments without high-grade stenosis. The bilateral anterior and middle cerebral arteries are also patent with a least mild multifocal luminal narrowing throughout the left middle cerebral artery branches.. Patent and codominant vertebral arteries. Moderate multifocal narrowing of the V4 segment right vertebral artery. The basilar and posterior cerebral arteries are patent. origin of the right posterior cerebral artery. There is no aneurysm, high-grade stenosis, or proximal branch occlusion identified. Dural sinuses appear patent. Lung apices appear clear. Unremarkable soft tissues. Degenerative changes of the cervical spine. IMPRESSION: Atherosclerosis without aneurysm, dissection, high-grade stenosis or arterial occlusion identified. ACT 112: Negative or not required by law. The above report was generated using voice recognition software. It may contain grammatical, syntax or spelling errors. Electronically signed by: Randall Cee M.D. 07/31/2022 4:14 PM Medications Administered Home Medications celecoxib 200 mg capsule 200 mg PO BID 09/13/19 [History Confirmed 07/31/22] cyanocobalamin (vitamin B-12) 1,000 mcg/mL injection solution 1,000 mcg IM MONTHLY 09/13/19 [History Confirmed 07/31/22] duloxetine 60 mg capsule,delayed release 120 mg PO DAILY 09/13/19 [History Confirmed 07/31/22] folic acid 1 mg tablet 1 mg PO DAILY 09/13/19 [History Confirmed 07/31/22] pantoprazole 40 mg tablet,delayed release 40 mg PO DAILY 09/13/19 [History Confirmed 07/31/22] ascorbic acid (vitamin C) 500 mg tablet (Vitamin C) 500 mg PO DAILY 07/31/22 [History Confirmed 07/31/22] aspirin 81 mg tablet,delayed release 81 mg PO QAM 07/31/22 [History Confirmed 07/31/22] buspirone 15 mg tablet 15 mg PO TID 07/31/22 [History Confirmed 07/31/22] cholecalciferol (vitamin D3) 25 mcg (1,000 unit) tablet (Vitamin D3) 25 mcg PO DAILY 07/31/22 [History Confirmed 07/31/22] diltiazem HCl 180 mg capsule,extended release 24 hr 180 mg PO QAM 07/31/22 [History Confirmed 07/31/22] duloxetine 30 mg capsule,delayed release 30 mg PO DAILY 07/31/22 [History Confirmed 07/31/22] fentanyl 25 mcg/hr transdermal patch 1 patch transdermal Q72H 07/31/22 [History Confirmed 07/31/22] gabapentin 800 mg tablet 800 mg PO TID 07/31/22 [History Confirmed 07/31/22] hydrocodone 10 mg-acetaminophen 325 mg tablet 1 tab PO .EVERY 5 HOURS PRN low back pain 07/31/22 [History Confirmed 07/31/22] hydroxyzine pamoate 50 mg capsule 50 mg PO TID PRN Itching 07/31/22 [History Confirmed 07/31/22] isosorbide mononitrate 30 mg tablet,extended release 24 hr 30 mg PO DAILY 07/31/22 [History Confirmed 07/31/22] nicotine 14 mg/24 hr daily transdermal patch 1 patch transdermal DAILY 07/31/22 [History Confirmed 07/31/22] nitroglycerin 0.4 mg sublingual tablet 0.4 mg sublingual UD PRN Chest Pain 07/31/22 [History Confirmed 07/31/22] polyethylene glycol 3350 17 gram/dose oral powder (Miralax) 17 g PO DAILY 07/31/22 [History Confirmed 07/31/22] rosuvastatin 20 mg tablet 20 mg PO DAILY 07/31/22 [History Confirmed 07/31/22] Active Medications Aspirin (No Aspirin Within 24hrs Of Thrombolytic-Stroke) 1 each PO UD REPLACED BY [facility] Stop: 08/01/22 16:29 Fentanyl (Fentanyl 25 Mcg/Hr Tdsy) 25 mcg TD Q72H REPLACED BY [facility] Stop: 08/14/22 18:59 Acetaminophen (Ofirmev) 1,000 mg in 100 mls @ 400 mls/hr IV Q8H PRN PRN Reason: headache, fever Stop: 08/03/22 20:37 Labetalol HCl (Labetalol Hcl Iv 5 Mg/Ml 20ml) 10 mg IV Q15M PRN PRN Reason: SBP >180 or DBP >105 mmHg Stop: 08/30/22 18:48 Miscellaneous (Icu Protocol For Hyperglycemia) 1 each N/A ACHS REPLACED BY [facility] Stop: 08/02/22 20:59 Last Admin: 07/31/22 20:58 Dose: Not Given Miscellaneous (Check Fentanyl Patch Placement) 1 each N/A QS REPLACED BY [facility] Stop: 08/31/22 00:00 Miscellaneous (Fentanyl Patch Remove & Waste) 1 each N/A Q3D REPLACED BY [facility] Stop: 08/30/22 18:59 Miscellaneous (Remove Nicoderm Patch) 1 each N/A DAILY@2099 REPLACED BY [facility] Stop: 08/31/22 20:59 Miscellaneous Information (Pharmacist Discharge Med Rec Consult) 1 each N/A UD PRN PRN Reason: Consult Stop: 08/30/22 18:48 Nicotine (Nicotine 7 Mg/24 Hr Tdsy) 7 mg TD DAILY@2099 REPLACED BY [facility] Stop: 08/30/22 19:14 Last Admin: 07/31/22 20:58 Dose: 7 mg ECG Additional Comments: Normal sinus rhythm Cannot rule out Anterior infarct , age undetermined Abnormal ECG When compared with ECG of 13-SEP-2019 13:47, No significant change was found Coding Level of Care Code Critical Care 1st 30-74 mins Diagnoses Stroke-like symptoms R29.90 CAD (coronary artery disease) I25.10 Herniation of cervical intervertebral disc with radiculopathy M50.10 COPD (chronic obstructive pulmonary disease) J44.9 Fibromyalgia M79.7 Migraine G43.909 Hypertension I10
[2022-07-31] MEDS: ICU Protocol for HYPERglycemia SCH (20:58)
[2022-07-31] MEDS: NICOTINE 7 MG/24 HR TDSY TD SCH (20:58)
[2022-07-31] MEDS: ACETAMINOPHEN 1,000 MG/100 ML VIAL IV PRN (21:09)
[2022-08-01] MEDS: CHECK fentaNYL PATCH PLACEMENT SCH ×3 (00:06→16:52)
[2022-08-01] MEDS: ICU Protocol for HYPERglycemia SCH ×3 (07:30→17:39)
--- NOTE | 2022-08-01 09:00 | Critical Care Progress Note ---
Date of Service August 01, 2022 Assessment & Plan (1) Stroke-like symptoms: (2) tPA adm status 24 hr [employer]: (3) COPD (chronic obstructive pulmonary disease): (4) Fibromyalgia: Plan Impression: 56-year-old female with peripheral vascular disease tobacco abuse and hypertension presenting with acute onset of left upper and lower extremity weakness. Status post tPA administration in the emergency room after telestroke consultation. Her symptoms have improved but not resolved. She been hemodynamically stable with no evidence of bleeding associated with thrombolytic administration. Recommendations: 1. Status post thrombolytic administration: Continue to monitor in ICU with follow-up CT of the head at 1600 today. If it is negative, she can likely go to the floor and critical care services will sign off. 2. Strokelike symptoms: Neurology consultation pending. Await MRI of the brain. PT OT consultations. Echocardiogram with bubble study. Hold antiplatelet or anticoagulation for now. 3. Peripheral vascular disease/hypertension: Blood pressure adequate. Continue outpatient medications. 4. The patient failed a bedside swallow evaluation yesterday stating that she felt like she could not swallow appropriately. Formal speech therapy evaluation today. Diet per speech. 5. Mild anemia: Last labs were back in 2019. Outpatient follow-up recommended. No signs of active bleeding. 6. We will defer her chronic pain management strategy to the primary admitting service. Anticipate that if the patient's follow-up CT this afternoon is negative she can transfer to the floor and critical care services will sign off. Feel free to contact us with questions or concerns Admission and Anticipated Discharge Date Admission Date: July 31, 2022 Subjective Patient seen and examined. EMR reviewed. The patient reports persistent weakness in her left upper extremity and left lower extremity. She is not having any swallow problems or voice problems but she failed her bedside speech evaluation yesterday. She been hemodynamically stable. No evidence of bleeding complications associated with thrombolytic administration. Review of Systems Review of Systems: All systems reviewed & are unremarkable except as noted in Subjective Physical Exam Physical Exam: PHYSICAL EXAM: General: awake, alert, no apparent distress Head: Normocephalic, atraumatic ENT: mucous membranes dry Neuro: AAO x 3, speech slightly slurred but appropriate, strength intact bilaterally 5/5, sensation intact and equal all extremities and dermatomes, pronator drift left upper, ataxia left upper and lower, facial droop mild left, no visual deficits. NIHSS- 6 Chest: equal rise and fall of the chest, no accessory muscle use, no heaves or thrills, Clear to auscultation, on room air, Cardiac: Regular rate and rhythm, telemetry reviewed-NSR, skin warm dry, cap refill <3 seconds, peripheral pulses +2 no JVD, no murmur, no edema GI: NABS x 4 quadrants, soft, nontender to palpation, no rebound, guarding or tenderness : Spontaneously voiding, no pain, no CVA tenderness, Extremities: Normal inspection, no peripheral edema or erythema, calfs nontender to palpation Psych: Normal mood and affect Skin: no rash or erythema Results & Data Results & Data ([facility]) Vital Signs (Past 12 Hours) Vital Signs Temp Pulse Pulse Resp BP BP Pulse Ox 08/01/22 07:25 76 18 123/40 L 92 08/01/22 07:00 37 C 100 H 18 124/63 95 08/01/22 07:16 109 H 08/01/22 06:00 77 14 122/81 96 08/01/22 05:00 77 21 110/69 94 08/01/22 05:25 82 22 109/72 93 08/01/22 04:30 81 18 145/63 H 96 08/01/22 04:00 78 17 120/71 92 08/01/22 03:30 81 13 152/74 H 93 08/01/22 03:00 79 16 123/75 94 08/01/22 02:30 83 12 131/72 98 08/01/22 02:00 79 12 126/64 94 08/01/22 01:31 78 17 144/64 H 08/01/22 04:25 37.0 C 80 14 145/63 H 95 08/01/22 03:25 37.0 C 73 14 152/74 H 95 08/01/22 02:25 37.0 C 86 20 131/72 98 08/01/22 01:25 36.9 C 77 16 144/64 H 100 08/01/22 01:00 75 22 129/70 91 08/01/22 00:30 77 19 119/79 96 08/01/22 00:00 75 15 138/80 94 07/31/22 23:30 83 13 136/72 94 07/31/22 23:00 73 17 130/75 94 07/31/22 22:30 82 19 119/70 95 07/31/22 22:00 83 17 136/80 93 07/31/22 21:30 84 17 118/72 95 08/01/22 00:25 36.9 C 76 14 119/79 95 08/01/22 00:04 73 07/31/22 23:55 36.9 C 77 16 138/80 96 07/31/22 23:25 36.9 C 84 16 136/72 94 07/31/22 22:55 36.9 C 75 15 130/75 93 07/31/22 22:25 36.9 C 82 16 119/70 95 07/31/22 21:55 36.9 C 79 15 136/80 92 07/31/22 21:25 36.9 C 85 17 118/72 95 O2 Del Method 08/01/22 07:25 Room Air 08/01/22 07:00 Room Air 08/01/22 07:16 08/01/22 06:00 08/01/22 05:00 08/01/22 05:25 Room Air 08/01/22 04:30 08/01/22 04:00 08/01/22 03:30 08/01/22 03:00 08/01/22 02:30 08/01/22 02:00 08/01/22 01:31 08/01/22 04:25 Room Air 08/01/22 03:25 Room Air 08/01/22 02:25 Room Air 08/01/22 01:25 Room Air 08/01/22 01:00 08/01/22 00:30 08/01/22 00:00 07/31/22 23:30 07/31/22 23:00 07/31/22 22:30 07/31/22 22:00 07/31/22 21:30 08/01/22 00:25 Room Air 08/01/22 00:04 07/31/22 23:55 Room Air 07/31/22 23:25 Room Air 07/31/22 22:55 Room Air 07/31/22 22:25 Room Air 07/31/22 21:55 Room Air 07/31/22 21:25 Room Air Critical Care Results & Data Vital Signs (Past 12 Hours) Vital Signs Temp Pulse Pulse Resp BP BP Pulse Ox 08/01/22 07:25 76 18 123/40 L 92 08/01/22 07:00 37 C 100 H 18 124/63 95 08/01/22 07:16 109 H 08/01/22 06:00 77 14 122/81 96 08/01/22 05:00 77 21 110/69 94 08/01/22 05:25 82 22 109/72 93 08/01/22 04:30 81 18 145/63 H 96 08/01/22 04:00 78 17 120/71 92 08/01/22 03:30 81 13 152/74 H 93 08/01/22 03:00 79 16 123/75 94 08/01/22 02:30 83 12 131/72 98 08/01/22 02:00 79 12 126/64 94 08/01/22 01:31 78 17 144/64 H 08/01/22 04:25 37.0 C 80 14 145/63 H 95 08/01/22 03:25 37.0 C 73 14 152/74 H 95 08/01/22 02:25 37.0 C 86 20 131/72 98 08/01/22 01:25 36.9 C 77 16 144/64 H 100 08/01/22 01:00 75 22 129/70 91 08/01/22 00:30 77 19 119/79 96 08/01/22 00:00 75 15 138/80 94 07/31/22 23:30 83 13 136/72 94 07/31/22 23:00 73 17 130/75 94 07/31/22 22:30 82 19 119/70 95 07/31/22 22:00 83 17 136/80 93 07/31/22 21:30 84 17 118/72 95 08/01/22 00:25 36.9 C 76 14 119/79 95 08/01/22 00:04 73 07/31/22 23:55 36.9 C 77 16 138/80 96 07/31/22 23:25 36.9 C 84 16 136/72 94 07/31/22 22:55 36.9 C 75 15 130/75 93 07/31/22 22:25 36.9 C 82 16 119/70 95 07/31/22 21:55 36.9 C 79 15 136/80 92 07/31/22 21:25 36.9 C 85 17 118/72 95 O2 Del Method 08/01/22 07:25 Room Air 08/01/22 07:00 Room Air 08/01/22 07:16 08/01/22 06:00 08/01/22 05:00 08/01/22 05:25 Room Air 08/01/22 04:30 08/01/22 04:00 08/01/22 03:30 08/01/22 03:00 08/01/22 02:30 08/01/22 02:00 08/01/22 01:31 08/01/22 04:25 Room Air 08/01/22 03:25 Room Air 08/01/22 02:25 Room Air 08/01/22 01:25 Room Air 08/01/22 01:00 08/01/22 00:30 08/01/22 00:00 07/31/22 23:30 07/31/22 23:00 07/31/22 22:30 07/31/22 22:00 07/31/22 21:30 08/01/22 00:25 Room Air 08/01/22 00:04 07/31/22 23:55 Room Air 07/31/22 23:25 Room Air 07/31/22 22:55 Room Air 07/31/22 22:25 Room Air 07/31/22 21:55 Room Air 07/31/22 21:25 Room Air Lab & Micro Results (Past 24 Hours) RBC 3.83 M/uL (4.20-5.40) L 07/31/22 WBC 7.74 K/ul (4.8-10.8) 07/31/22 Hgb 11.7 g/dl (12.0-16.0) L 07/31/22 Hct 35.8 % (37.0-47.0) L 07/31/22 MCV 93.5 fL (80.0-100.0) 07/31/22 MCH 30.5 pg (25.0-34.0) 07/31/22 MCHC 32.7 g/dL (32.0-36.0) 07/31/22 RDW Standard Deviation 43.7 fL (36.4-46.3) 07/31/22 RDW Coefficient of Variation 12.8 % (11.5-14.5) 07/31/22 Plt Count 274 K/uL (130-400) 07/31/22 MPV 8.8 fL (9.4-12.4) L 07/31/22 Neutrophils (%) (Auto) 59.2 % 07/31/22 Lymphocytes (%) (Auto) 28.2 % 07/31/22 Monocytes # (Auto) 0.90 K/uL (0.11-0.59) H 07/31/22 Eosinophils # (Auto) 0.00 K/uL (0-0.50) 07/31/22 Immature Granulocyte % (Auto) 0.4 % 07/31/22 Neutrophils # (Auto) 4.58 K/uL (1.40-6.50) 07/31/22 Lymphocytes # (Auto) 2.18 K/uL (1.2-3.4) 07/31/22 Monocytes # (Auto) 0.90 K/uL (0.11-0.59) H 07/31/22 Eosinophils # (Auto) 0.00 K/uL (0-0.50) 07/31/22 Basophils # (Auto) 0.05 K/uL (0-0.2) 07/31/22 Immature Granulocyte # (Auto) 0.03 K/uL (0.01-0.20) 3 Na 138 mmol/L (136-145) 07/31/22 K 3.9 mmol/L (3.5-5.1) 07/31/22 Cl 108 mmol/L (98-107) H 07/31/22 CO2 25 mmol/L (21-32) 07/31/22 Anion Gap 5 (3-11) 07/31/22 BUN 21 mg/dl (6-23) 07/31/22 Creatinine 1.05 mg/dl (0.6-1.2) 07/31/22 Estimated GFR ( Amer) 68.3 ml/min 07/31/22 Estimated GFR (Non-Af Amer) 58.9 ml/min 07/31/22 BUN/Creatinine Ratio 20.0 (10-20) 07/31/22 Glu 120 mg/dl (70-99(Fasting)) H 07/31/22 Ca 8.6 mg/dl (8.5-10.1) 07/31/22 Total Bilirubin 0.3 mg/dl (0.2-1.0) 07/31/22 AST 16 U/L (13-39) 07/31/22 ALT 12 U/L (7-52) 07/31/22 Alkaline Phosphatase 54 U/L (34-104) 07/31/22 TP 6.0 gm/dl (6.0-8.3) 07/31/22 Albumin 3.4 gm/dl (3.4-5.0) 07/31/22 Globulin 2.6 gm/dl (2.5-4.0) 07/31/22 Albumin/Globulin Ratio 1.3 (0.9-2) 07/31/22 Mg 1.8 mg/dl (1.7-2.4) 07/31/22 15:54 Calcium Level 8.6 mg/dl (8.5-10.1) 07/31/22 15:54 Prothromb Time International Ratio 1.0 (0.9-1.1) 07/31/22 15:5 4 Diagnostic Findings (Past 24 Hours) Chest X-Ray 07/31/22 14:57 XR chest 1V portable HISTORY: 56 years-old Female neuro deficit, acute stroke suspected acute strokelike symptoms COMPARISON: Chest CT 09/13/2019 TECHNIQUE: AP view of the chest FINDINGS: Cardiomediastinal and hilar silhouettes are within normal limits. No pneumothorax, pleural effusion, airspace consolidation or overt pulmonary edema. Bones of the chest appear grossly intact. IMPRESSION: No acute process. ACT 112: Negative or not required by law. The above report was generated using voice recognition software. It may contain grammatical, syntax or spelling errors. Electronically signed by: Randall Cee M.D. 07/31/2022 5:[address] 07/31/22 14:57 CT head/brain wo con CLINICAL HISTORY: 56 years-old Female with neuro deficit, acute stroke suspected. Acute strokelike symptoms TECHNIQUE: Multiple axial CT images of the head were obtained without contrast. A dose lowering technique was utilized adhering to the principles of ALARA. COMPARISON: Brain MRI 09/13/2019 FINDINGS: No acute intracranial hemorrhage, midline shift, intracranial mass, hydrocephalus, territorial ischemia or abnormal extra-axial collection. The calvarium is intact. The paranasal sinuses, mastoid air cells, and middle ear cavities are clear. IMPRESSION: No acute intracranial abnormality. ACT 112: Negative or not required by law. The above report was generated using voice recognition software. It may contain grammatical, syntax or spelling errors. Electronically signed by: Randall Cee M.D. 07/31/2022 4:25 PM Head CTA 07/31/22 14:57 CT angio head w con, CT angio neck with con CLINICAL HISTORY: 56 years-old Female with neuro deficit, acute stroke suspected. Acute strokelike symptoms COMPARISON STUDY: Head CT of same day TECHNIQUE: Following the IV administration of 114 cc of Optiray, CT angiogram of the head and neck was performed from the aortic arch to the skull apex. Images are reviewed in the axial, sagittal, and coronal planes. 3-D MIPS images are created and assessed. IV contrast was administered without complication. All measurements were obtained according to NASCET criteria. A dose lowering technique was utilized adhering to the principles of ALARA. CT DOSE: 1113.59 mGy.cm FINDINGS: CT ANGIOGRAM OF THE HEAD AND NECK: Three-vessel morphology of the thoracic aortic arch. Patency of the innominate and imaged subclavian arteries. Mild to moderate atherosclerotic plaque of the carotid bulbs and proximal cervical segments of the internal carotid arteries resulting in less than 50% stenosis bilaterally. Additional calcified plaque of the cavernous, clinoid and supraclinoid segments without high-grade stenosis. The bilateral anterior and middle cerebral arteries are also patent with a least mild multifocal luminal narrowing throughout the left middle cerebral artery branches.. Patent and codominant vertebral arteries. Moderate multifocal narrowing of the V4 segment right vertebral artery. The basilar and posterior cerebral arteries are patent. origin of the right posterior cerebral artery. There is no aneurysm, high-grade stenosis, or proximal branch occlusion identified. Dural sinuses appear patent. Lung apices appear clear. Unremarkable soft tissues. Degenerative changes of the cervical spine. IMPRESSION: Atherosclerosis without aneurysm, dissection, high-grade stenosis or arterial occlusion identified. ACT 112: Negative or not required by law. The above report was generated using voice recognition software. It may contain grammatical, syntax or spelling errors. Electronically signed by: Randall Cee M.D. 07/31/2022 4:14 PM Neck CTA 07/31/22 14:57 CT angio head w con, CT angio neck with con CLINICAL HISTORY: 56 years-old Female with neuro deficit, acute stroke suspected. Acute strokelike symptoms COMPARISON STUDY: Head CT of same day TECHNIQUE: Following the IV administration of 114 cc of Optiray, CT angiogram of the head and neck was performed from the aortic arch to the skull apex. Images are reviewed in the axial, sagittal, and coronal planes. 3-D MIPS images are created and assessed. IV contrast was administered without complication. All measurements were obtained according to NASCET criteria. A dose lowering technique was utilized adhering to the principles of ALARA. CT DOSE: 1113.59 mGy.cm FINDINGS: CT ANGIOGRAM OF THE HEAD AND NECK: Three-vessel morphology of the thoracic aortic arch. Patency of the innominate and imaged subclavian arteries. Mild to moderate atherosclerotic plaque of the carotid bulbs and proximal cervical segments of the internal carotid arteries resulting in less than 50% stenosis bilaterally. Additional calcified plaque of the cavernous, clinoid and supraclinoid segments without high-grade stenosis. The bilateral anterior and middle cerebral arteries are also patent with a least mild multifocal luminal narrowing throughout the left middle cerebral artery branches.. Patent and codominant vertebral arteries. Moderate multifocal narrowing of the V4 segment right vertebral artery. The basilar and posterior cerebral arteries are patent. origin of the right posterior cerebral artery. There is no aneurysm, high-grade stenosis, or proximal branch occlusion identified. Dural sinuses appear patent. Lung apices appear clear. Unremarkable soft tissues. Degenerative changes of the cervical spine. IMPRESSION: Atherosclerosis without aneurysm, dissection, high-grade stenosis or arterial occlusion identified. ACT 112: Negative or not required by law. The above report was generated using voice recognition software. It may contain grammatical, syntax or spelling errors. Electronically signed by: Randall Cee M.D. 07/31/2022 4:14 PM I & O Totals 24 Hours 07/31/22 08/01/22 08/02/22 06:59 06:59 06:59 Intake Total 100 / 100 Output Total 300 / 300 Balance -200 / -200 Cumulative 07/31/22 14:52 thru 07/31/22 23:35 Intake Total 100 Output Total 300 Balance -200 RT Ventilator Mngmt (Last Documented) Ventilator Ordered Settings Respiratory Rate 18 08/01/22 07:25 Ventilator - PT Measurements Respiratory Rate 18 Coding Level of Care Code 66712 SUB INP/OBS CARE MIN Diagnoses Stroke-like symptoms R29.90 tPA adm status 24 hr [employer] Z92.82 COPD (chronic obstructive pulmonary disease) J44.9 Fibromyalgia M79.7
[2022-08-01] MEDS: ATORVASTATIN 20 MG TAB PO SCH (09:20)
--- NOTE | 2022-08-01 09:31 | Neurology Consultation ---
Date of Consultation August 01, 2022 Assessment & Plan (1) Stroke-like symptoms: Plan Neurology Consultation Assessment & Plan: Impression: pt with acute left hemiparesis and speech change that is improved and clinically stable. suspect acute ischemic stroke/TIA. s/p TNKase, stable without suggestion of bleeding. Recommendations: * Standard stroke work up as planned * Antiplatelet therapy: on hold until repeat CT head stable. once repeat CT head is stable without bleed, can start pt on DAPT (ASA and plavix daily) for 21 days (24 hrs after TNKase administration). * Images: MRI brain (stroke protocol), TTE with bubble. * Permissive Hypertension next 24-48 hrs. Keep SBP goal range less than 220. Avoid hypotension. Do not stop beta-seema if on it. post TNKase care per the protocol in ICU. * Long-term SBP goal less than 130. * Plenty of hydration including IV fluid (use isotonic solution) next 1-2 days if possible. Avoid hypovolemia and hypotension. * Initiate DVT prevention therapy * Avoid hypoglycemia, serum glucose goal during hospitalization: 140-180 * Long-term HgA1c goal less than 7 * Start statin if not on it.Long-term LDL goal of less than 70. * Head of bed up 30 degree if possible. * Stroke education * Smoke cessation education if a smoker. * Telemetry monitoring.Please order MCOT (mobile cardiac outpatient telemetry) orICM (insertable potline monitor) if never had group home cardiac monitoring previously. And if found to have atrial flutter or fibrillation, should consider anticoagulation therapy if no contraindication. * Fall precaution and aspiration precaution. * Physical/occupational therapy and speech path evaluations. Chart reviewed I have spent more than 50% educating patient about potential diagnosis and neurological evaluation and coordinating care with patient's treatment team. Total time spent: 80 min (this includes chart review and documentation) Dr. Jett Matamoros MD [facility] Neu[facility] Chief Complaint: weakness HISTORY OF PRESENT ILLNESS:pt this morning feeling better with improved weakness on left and speech improved. CTA with some carotid plaques and no LVO. s/p TNKase and doing well clinically without suggestion of bleed. chart reviewed. Admission/Initial HPI:Olga Warren is a 56-year-old female with a past medical history of COPD, tobacco abuse, herniated cervical intervertebral disc spondylosis at C5-C6 not recommended for surgical intervention, and ambulatory dysfunction who presents as a stroke alert. Presents to the emergency department for bilateral weakness which began 90 minutes prior to arrival. Currently with left-sided weakness, EMS facial droop Last Normal: 2pm Patient reports she was in her otherwise normal state of health until 2 PM this afternoon when she was attempting to shower in the bathroom when she noticed that her arms were much weaker than normal and she was not able to lift her arms above her head to wash her hair. Her left week was much more weak than her r ight. She did call her sister who called 911 for prompt evaluation in the ER. Patient was noted by EMS to have a slight left-sided facial droop. Per patient she also felt like she could understand speech, and knew the words she wanted to say, but had a feeling like her "mouth was full of marbles "and had difficulty getting the words out. She also noted a feeling of tingling in her left jaw and fingers bilaterally. She had taken her morning medications as usual. Has a fentanyl patch in place for fibromyalgia and chronic pain, denies additional doses of pain medicine before symptom onset. She has a history of tobacco abuse of more than 35 years 2 pack/day now cutting back to 1/2 pack/day recently. No alcohol use. History of prior suspected TIA without residual deficit. Has history of CAD which underwent a cardiac catheterization previously but was found to have mild nonobstructing coronary disease, she has not had a heart attack and has no stents. Denies heart failure and reports she has had heart testing including an ultrasound performed. No history of heart failure. She does endorse chronic left-sided weakness with pain that will shoot from her left thigh down into her left lower leg. Has a chronic back pain. She feels she has had some chronic weakness with this, feels her symptoms have been worse than normal since 2 PM. She reports that she has had a lumbar MRI in the past, which showed a slightly protruding disc but surgical intervention was not recommended. Received TNKase while in the ER. Post TNKase patient reports that she feels her symptoms have somewhat improved. Dysarthria has resolved. Tingling in her hands has almost completely resolved. She has no numbness/tingling in her right hand, and it is about 90% resolved in her left hand, slightly affecting the distal tips of all 5 fingers. She reports she continues to feel a little more weak than normal in her left hand, and left leg. Right arm and leg strength feels normal to her. She feels like her vision is a little bit foggy/slightly blurry "like being underwater "but does not have any field cuts, and vision is not changed by covering either eye. Past Medical History: See chart Meds: See chart Social & Family History: See chart Review of Systems: Per HPI. Physical Exam: General Statement: not in acute distress, well appearing Mental Status: Oriented fully. Normal comprehension, no neglect, Fluent speech, logical thought process, Visuo-spatial function was intact. No apraxia, no L/R confusion. Cranial Nerves: Visual oliva were full.PERRL.Extraocular movements were full with no nystagmus. Normal pursuit.Facial movements were symmetric.Hearing was grossly intact.Palate elevated symmetrically.Sternocleidomastoid and trapezius muscles were 5/5 and equal bilaterally.Tongue extended midline. Motor: Strength was 5/5 on rt side. 4/5 on LUE t/o. 4/5 LLE but limited due to pain issues. Sensory:intact to touch bilaterally Coordination: intact bilaterally Reflexes: . Toes down bilaterally History of Present Illness Attending Physician: Brennan Mcintosh Allergies Allergy/AdvReac Type Severity Reaction Status Date / Time fluoxetine AdvReac Dizziness Unverified 09/13/19 13:38 Home Medications Medication Instructions Recorded Confirmed Type celecoxib 200 mg capsule 200 mg PO BID 09/13/19 07/31/22 History cyanocobalamin (vitamin B-12) 1,000 mcg IM MONTHLY 09/13/19 07/31/22 History 1,000 mcg/mL injection solution duloxetine 60 mg capsule,delayed 120 mg PO DAILY 09/13/19 07/31/22 History release folic acid 1 mg tablet 1 mg PO DAILY 09/13/19 07/31/22 History pantoprazole 40 mg tablet,delayed 40 mg PO DAILY 09/13/19 07/31/22 History release ascorbic acid (vitamin C) 500 mg 500 mg PO DAILY 07/31/22 07/31/22 History tablet (Vitamin C) aspirin 81 mg tablet,delayed 81 mg PO QAM 07/31/22 07/31/22 History release buspirone 15 mg tablet 15 mg PO TID 07/31/22 07/31/22 History cholecalciferol (vitamin D3) 25 25 mcg PO DAILY 07/31/22 07/31/22 History mcg (1,000 unit) tablet (Vitamin D3) diltiazem HCl 180 mg 180 mg PO QAM 07/31/22 07/31/22 History capsule,extended release 24 hr duloxetine 30 mg capsule,delayed 30 mg PO DAILY 07/31/22 07/31/22 History release fentanyl 25 mcg/hr transdermal 1 patch transdermal Q72H 07/31/22 07/31/22 History patch gabapentin 800 mg tablet 800 mg PO TID 07/31/22 07/31/22 History hydrocodone 10 mg-acetaminophen 1 tab PO .EVERY 5 HOURS PRN low 07/31/22 07/31/22 History 325 mg tablet back pain hydroxyzine pamoate 50 mg capsule 50 mg PO TID PRN Itching 07/31/22 07/31/22 History isosorbide mononitrate 30 mg 30 mg PO DAILY 07/31/22 07/31/22 History tablet,extended release 24 hr nicotine 14 mg/24 hr daily 1 patch transdermal DAILY 07/31/22 07/31/22 History transdermal patch nitroglycerin 0.4 mg sublingual 0.4 mg sublingual UD PRN Chest Pain 07/31/22 07/31/22 History tablet polyethylene glycol 3350 17 17 g PO DAILY 07/31/22 07/31/22 History gram/dose oral powder (Miralax) rosuvastatin 20 mg tablet 20 mg PO DAILY 07/31/22 07/31/22 History Patient History Medical History CAD (coronary artery disease) COPD (chronic obstructive pulmonary disease) Fibromyalgia Herniation of cervical intervertebral disc with radiculopathy Hypertension Migraine PVD (peripheral vascular disease) Family History (Updated 07/31/22 @ 20:54 by BRAULIO Marvin) Other COPD (chronic obstructive pulmonary disease) Diabetes Dyslipidemia Heart disease Hypertension Social History Smoking Status: Current every day smoker Cigarettes Per Day: 24; Second Hand Exposure: No; Do You Dip or Chew Tobacco: No; Tobacco Cessation Education Requested by Patient: No Hx Alcohol Use: No Hx Substance Use: No Preferred Language: Welsh Communication Ability: Effective 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 Beliefs That Will Affect Care: None Current Living Situation: Alone Other Information That Helps Us Care for You: No Feels Safe at Home: Yes Safety Concerns: Feels Safe At This Time Assistive Devices: Cane, Denture - Upper, Denture - Lower, Glasses and Walker Results & Data ([facility]) Vital Signs (Past 12 Hours) Vital Signs Temp Pulse Pulse Resp BP BP Pulse Ox 08/01/22 08:25 37.1 C 70 18 132/75 94 08/01/22 07:25 76 18 123/40 L 92 08/01/22 07:00 37 C 100 H 18 124/63 95 08/01/22 07:16 109 H 08/01/22 06:00 77 14 122/81 96 08/01/22 05:00 77 21 110/69 94 08/01/22 05:25 82 22 109/72 93 08/01/22 04:30 81 18 145/63 H 96 08/01/22 04:00 78 17 120/71 92 08/01/22 03:30 81 13 152/74 H 93 08/01/22 03:00 79 16 123/75 94 08/01/22 02:30 83 12 131/72 98 08/01/22 02:00 79 12 126/64 94 08/01/22 01:31 78 17 144/64 H 08/01/22 04:25 37.0 C 80 14 145/63 H 95 08/01/22 03:25 37.0 C 73 14 152/74 H 95 08/01/22 02:25 37.0 C 86 20 131/72 98 08/01/22 01:25 36.9 C 77 16 144/64 H 100 08/01/22 01:00 75 22 129/70 91 08/01/22 00:30 77 19 119/79 96 08/01/22 00:00 75 15 138/80 94 07/31/22 23:30 83 13 136/72 94 07/31/22 23:00 73 17 130/75 94 07/31/22 22:30 82 19 119/70 95 07/31/22 22:00 83 17 136/80 93 08/01/22 00:25 36.9 C 76 14 119/79 95 08/01/22 00:04 73 07/31/22 23:55 36.9 C 77 16 138/80 96 07/31/22 23:25 36.9 C 84 16 136/72 94 07/31/22 22:55 36.9 C 75 15 130/75 93 07/31/22 22:25 36.9 C 82 16 119/70 95 07/31/22 21:55 36.9 C 79 15 136/80 92 O2 Del Method 08/01/22 08:25 Room Air 08/01/22 07:25 Room Air 08/01/22 07:00 Room Air 08/01/22 07:16 08/01/22 06:00 08/01/22 05:00 08/01/22 05:25 Room Air 08/01/22 04:30 08/01/22 04:00 08/01/22 03:30 08/01/22 03:00 08/01/22 02:30 08/01/22 02:00 08/01/22 01:31 08/01/22 04:25 Room Air 08/01/22 03:25 Room Air 08/01/22 02:25 Room Air 08/01/22 01:25 Room Air 08/01/22 01:00 08/01/22 00:30 08/01/22 00:00 07/31/22 23:30 07/31/22 23:00 07/31/22 22:30 07/31/22 22:00 08/01/22 00:25 Room Air 08/01/22 00:04 07/31/22 23:55 Room Air 07/31/22 23:25 Room Air 07/31/22 22:55 Room Air 07/31/22 22:25 Room Air 07/31/22 21:55 Room Air
--- NOTE | 2022-08-01 09:58 | Magnetic Resonance Report ---
MRI OF THE BRAIN WITHOUT IV CONTRAST CLINICAL HISTORY: Strokelike symptoms. Left-sided weakness. Expressive aphasia. COMPARISON STUDY: CT of the brain dated 07/31/2022. TECHNIQUE: MRI of the brain was performed utilizing various T1 and T2-weighted sequences in the axial , sagittal, and coronal planes. IV contrast was not administered for this examination. FINDINGS: Brain parenchyma: There is minimal microangiopathic change. There is no hemorrhage or mass effect. Th ere is no restricted diffusion to suggest acute ischemia. Maldonado-white matter differentiation is preser heather. No extra-axial fluid collection is seen. The cerebellar tonsils are normal in configuration. Ventricles, sulci, and cisterns: Normal in configuration. Pituitary and sella: Unremarkable. Intracranial vasculature: Normal flow voids are maintained at the skull base. Orbits: The bony orbits are grossly intact. Orbital contents are normal in appearance. Sinuses and mastoids: There is mucosal thickening within the left sphenoid sinus. The remaining paran gina sinuses and clear. There is a small left mastoid effusion. Calvarium: Unremarkable. Cervical cord: Partially visualized cervical spinal cord is normal in morphology and signal intensity . IMPRESSION: No acute intracranial abnormality. ACT 112: Negative or not required by law. Electronically signed by: Eduin Breaux M.D. 08/01/2022 9:57 AM
--- NOTE | 2022-08-01 11:23 | Electrocardiogram Report ---
Test Reason : Blood Pressure : / mmHG Vent. Rate : 087 BPM Atrial Rate : 087 BPM P-R Int : 170 ms QRS Dur : 094 ms QT Int : 376 ms P-R-T Axes : 064 -13 045 degrees QTc Int : 452 ms Normal sinus rhythm Loss of R wave in V3 likely lead placement Abnormal ECG When compared with ECG of 13-SEP-2019 13:47, No significant change was found Confirmed by Conrad Mercado ([id number]) on 08/01/2022 11:22:45 AM Referred By: REFERRED SELF Confirmed By:Conrad Mercado
--- NOTE | 2022-08-01 12:58 | Hospitalist Progress Note ---
Date of Service August 01, 2022 Assessment & Plan (1) Stroke-like symptoms: Plan: Patient presented with what appeared to be a right-sided ischemic CVA. Met criteria for lytic therapy. S/p telestroke consult, followed by Trav. Subsequent admission to ICU. Speech has returned to normal; she continues with left arm/left leg symptoms. This is despite negative MRI brain for acute CVA. CTA head/neck noted. Echo w/o thrombus. LDL 40 on lipid profile; hemoglobin a1c pending. Aborted CVA s/p TNKase (given the negative MRI brain)? Complicated/complex migraine? Other? Appreciate ICU & neuro consults. For possible stroke - since 24-hour CT head negative for ICH - to begin asa/plavix for secondary prevention. Cont statin. If this is a complicated migraine will Rx the migraine. Give mag sulfate 1gm IV x 1 now. Discussed with neurology - start prednisone 60mg daily x 5 days, first dose now. (2) Migraine: Plan: As noted in #1 above - could symptoms have been due to complex migraine given her persistent symptoms despite negative MRI Brain? She has ongoing bifrontal headache that is typical for her usual migraines. Start prednisone 60mg daily x 5 days (discussed with neuro). Mag sulfate 1gm IV x 1. Ideally an abortive Rx like Nurtec would be helpful but is not on our formulary. Dim the lights, draw blinds, etc. (3) Herniation of cervical intervertebral disc with radiculopathy: Plan: This could explain arm (and possibly the leg) symptoms but not the speech symptoms. She is not complaining of neck pain today - just her chronic low back pain for which she is on fentanyl patch + norco prn. (4) CAD (coronary artery disease): Plan: No symptoms to suggest ACS. Cont statin. Cont asa. Resume imdur in 1-2 days (allowing permissive HTN at this time). Uncertain why she is not on beta seema therapy. (5) COPD (chronic obstructive pulmonary disease): Plan: No flare at this time. (6) Fibromyalgia: (7) Hypertension: Plan: Hold anti-hypertensives to allow permissive HTN next 24 hours. (8) DVT prophylaxis: Plan: add SC heparin tomorrow CT head neg for ICH (9) Tobacco abuse: Plan: veterans' counselor to quit nicoderm patch (10) Chronic pain syndrome: Plan: on chronic narcotics - fentanyl patch + norco prn 2nd to chronic neck/back pain Plan h/o B12 deficiency - check B12 level in am can transfer from ICU to PCU later today PT, OT, speech abraham appreciated Admission and Anticipated Discharge Date Admission Date: July 31, 2022 Subjective patient reports ongoing bifrontal headache-throbbing, with some photophobia- that started yesterday am she has long h/o migraines and gets them about 1x/month headache was initially mild, then got worse as day went on yesterday this was then followed by her neuro symptoms - dysarthria, left arm numbness/pain/weakness, worsening of chronic LLE weakness she typically takes norco prn for her migraines ? today she states her speech is back to normal weakness in left arm is still present but not as severe has pain that travels from the L shoulder and down the back of the arm into the distal arm pins/needles and electric type pain left leg weakness is chronic but is acutely worse tele overnight wnl by report Review of Systems Review of Systems: gen - no fevers or chills cv - no chest pain pulm - no dyspnea GI - no abd pain Physical Exam Physical Exam: gen - morbidly obese, NAD, speech fluent/clear mouth - MM slightly dry neck - no JVD heart - RRR, s1 s2, no murmur lungs - CTA b/l abd - soft NT ND BS+ ext - no edema, pulses 2+ b/l neuro - no facial droop; speech clear - no dysarthria/aphasia; left arm weakness, about 4/5; RUE 5/5; RLE 5/5; left hip flexion 4/5; left ankle dorsiflexion/plantarflexion near 5/5 Results & Data Results & Data ([facility]) Vital Signs (Past 12 Hours) Vital Signs Temp Pulse Pulse Resp BP BP Pulse Ox 08/01/22 11:25 37.1 C 77 14 149/74 H 95 08/01/22 10:25 37.1 C 78 16 133/81 95 08/01/22 08:25 37.1 C 70 18 132/75 94 08/01/22 07:25 76 18 123/40 L 92 08/01/22 07:00 37 C 100 H 18 124/63 95 08/01/22 07:16 109 H 08/01/22 06:00 77 14 122/81 96 08/01/22 05:00 77 21 110/69 94 08/01/22 05:25 82 22 109/72 93 08/01/22 04:30 81 18 145/63 H 96 08/01/22 04:00 78 17 120/71 92 08/01/22 03:30 81 13 152/74 H 93 08/01/22 03:00 79 16 123/75 94 08/01/22 02:30 83 12 131/72 98 08/01/22 02:00 79 12 126/64 94 08/01/22 01:31 78 17 144/64 H 08/01/22 04:25 37.0 C 80 14 145/63 H 95 08/01/22 03:25 37.0 C 73 14 152/74 H 95 08/01/22 02:25 37.0 C 86 20 131/72 98 08/01/22 01:25 36.9 C 77 16 144/64 H 100 08/01/22 01:00 75 22 129/70 91 O2 Del Method 08/01/22 11:25 Room Air 08/01/22 10:25 Room Air 08/01/22 08:25 Room Air 08/01/22 07:25 Room Air 08/01/22 07:00 Room Air 08/01/22 07:16 08/01/22 06:00 08/01/22 05:00 08/01/22 05:25 Room Air 08/01/22 04:30 08/01/22 04:00 08/01/22 03:30 08/01/22 03:00 08/01/22 02:30 08/01/22 02:00 08/01/22 01:31 08/01/22 04:25 Room Air 08/01/22 03:25 Room Air 08/01/22 02:25 Room Air 08/01/22 01:25 Room Air 08/01/22 01:00 Laboratory Results Laboratory Results - last 24 hr 08/01/22 08/01/22 08/01/22 16:40 16:40 16:40 WBC 7.47 RBC 3.96 L Hgb 12.2 Hct 36.7 L MCV 92.7 MCH 30.8 MCHC 33.2 RDW Std Deviation 43.5 RDW Coeff of Francis 12.9 Plt Count 268 MPV 8.7 L Immature Gran % (Auto) 0.4 Neut % (Auto) 68.4 Lymph % (Auto) 20.3 [place] % (Auto) 10.2 Eos % (Auto) 0.0 Baso % (Auto) 0.7 Neut # (Auto) 5.11 Lymph # (Auto) 1.52 [place] # (Auto) 0.76 H Eos # (Auto) 0.00 Baso # (Auto) 0.05 Immature Gran # (Auto) 0.03 Sodium 138 Potassium 4.1 Chloride 107 Carbon Dioxide 28 Anion Gap 3 BUN 22 Creatinine 0.66 D Est Cr Clr Drug Dosing 103.1 Est GFR ( Amer) 113.7 Est GFR (Non-Af Amer) 98.1 BUN/Creatinine Ratio 33.3 H Glucose 92 Estimat Average Glucose Pending Hemoglobin A1c Pending Calcium 9.1 Triglycerides 130 Cholesterol 112 LDL Cholesterol, Calc 40 VLDL Cholesterol, Calc 26 HDL Cholesterol 46 Cholesterol/HDL Ratio 2.4 Diagnostic Findings Brain MRI 08/01/22 08:57 MRI OF THE BRAIN WITHOUT IV CONTRAST CLINICAL HISTORY: Strokelike symptoms. Left-sided weakness. Expressive aphasia. COMPARISON STUDY: CT of the brain dated 07/31/2022. TECHNIQUE: MRI of the brain was performed utilizing various T1 and T2-weighted sequences in the axial, sagittal, and coronal planes. IV contrast was not administered for this examination. FINDINGS: Brain parenchyma: There is minimal microangiopathic change. There is no hemorrhage or mass effect. There is no restricted diffusion to suggest acute ischemia. Maldonado-white matter differentiation is preserved. No extra-axial fluid collection is seen. The cerebellar tonsils are normal in configuration. Ventricles, sulci, and cisterns: Normal in configuration. Pituitary and sella: Unremarkable. Intracranial vasculature: Normal flow voids are maintained at the skull base. Orbits: The bony orbits are grossly intact. Orbital contents are normal in appearance. Sinuses and mastoids: There is mucosal thickening within the left sphenoid sinus. The remaining paranasal sinuses and clear. There is a small left mastoid effusion. Calvarium: Unremarkable. Cervical cord: Partially visualized cervical spinal cord is normal in morphology and signal intensity. IMPRESSION: No acute intracranial abnormality. ACT 112: Negative or not required by law. Electronically signed by: Eduin Breaux M.D. 08/01/2022 9:[address] 08/01/22 17:36 CT SCAN OF THE BRAIN WITHOUT IV CONTRAST CLINICAL HISTORY: 24 hours status post TPA. COMPARISON STUDY: CT of the brain dated 07/31/2022. MRI of the brain dated 08/01/2022. TECHNIQUE: Unenhanced axial CT scan of the brain is performed from the vertex to the skull base. A dose lowering technique was utilized adhering to the principles of ALARA. CT DOSE: 537.48 mGy.cm FINDINGS: Brain parenchyma: The brain parenchyma is normal in appearance. There is no hemorrhage, mass effect, or evidence of acute territorial ischemia by CT criteria. Maldonado-white matter differentiation is preserved. No extra-axial fluid collection is seen. Ventricles, sulci, cisterns: Normal in configuration. Intracranial vasculature: There is atherosclerotic calcification of the cavernous carotid and vertebral arteries. Calvarium: Unremarkable. Sinuses and mastoids: There is evidence of previous paranasal sinus surgery. Trace mucosal thickening is noted in the left maxillary antrum. There is mild mucosal thickening in the left sphenoid sinus. There is a small left mastoid effusion. The right mastoid air cells are well pneumatized. Orbits: The bony orbits are grossly intact. IMPRESSION: There is no hemorrhage, mass effect, or evidence of acute territorial ischemia by CT criteria. ACT 112: Negative or not required by law. Electronically signed by: Eduin Breaux M.D. 08/01/2022 5:49 PM echo - EF 60-65%, no shunt, no valvular abnormalities PG Care Time/CCT Total # of Minutes Spent Total Time Spent with Patient: Total time spent is greater than 50% in coordination of care (as documented) at patient's floor/unit and/or counseling patient: Coding Level of Care Code 12537 SUB INP/OBS CARE 3/50MIN Diagnoses Stroke-like symptoms R29.90 Migraine G43.909 Herniation of cervical intervertebral disc with radiculopathy M50.10 CAD (coronary artery disease) I25.10 COPD (chronic obstructive pulmonary disease) J44.9 Fibromyalgia M79.7 Hypertension I10 DVT prophylaxis Z29.9 Tobacco abuse Z72.0 Chronic pain syndrome G89.4
[2022-08-01] MEDS ORDERED: MAGNESIUM SULFATE / D5W 1 GM/100 ML BAG IV ONE (13:13)
[2022-08-01 16:56] LABS: Basophils # (auto) 0.05 K/uL (0-0.2); Basophils % (auto) 0.7 %; Hematocrit (blood only) 36.7 % (37.0-47.0); Hemoglobin 12.2 g/dl (12.0-16.0); Immature Granulocytes # (auto) 0.03 K/uL (0.01-0.20); Immature Granulocytes % (auto) 0.4 %; Lymphocytes # (auto) 1.52 K/uL (1.2-3.4); Lymphocytes % (auto) 20.3 %; Mean Corpuscular Hemoglobin 30.8 pg (25.0-34.0); Mean Corpuscular Hgb Conc 33.2 g/dL (32.0-36.0); Mean Corpuscular Volume 92.7 fL (80.0-100.0); Mean Platelet Volume 8.7 fL (9.4-12.4); Monocytes # (auto) 0.76 K/uL (0.11-0.59); Monocytes % (auto) 10.2 %; Neutrophils # (auto) 5.11 K/uL (1.40-6.50); Neutrophils % (auto) 68.4 %; Platelet Count 268 K/uL (130-400); RDW Coefficient of Variation 12.9 % (11.5-14.5); RDW Standard Deviation 43.5 fL (36.4-46.3); Red Blood Count 3.96 M/uL (4.20-5.40); White Blood Count 7.47 K/ul (4.8-10.8)
[2022-08-01 17:29] LABS: BUN Creatinine Ratio 33.3 (10-20); Calcium 9.1 mg/dl (8.5-10.1); Chol HDL Ratio 2.4 (0-5); Creatinine Clr Calc Pharmacy 103.1 ml/min; Est GFR (African American) 113.7 ml/min; Est GFR (Non-African American) 98.1 ml/min; Potassium 4.1 mmol/L (3.5-5.1)
--- NOTE | 2022-08-01 17:52 | CT Scan Report ---
CT SCAN OF THE BRAIN WITHOUT IV CONTRAST CLINICAL HISTORY: 24 hours status post TPA. COMPARISON STUDY: CT of the brain dated 07/31/2022. MRI of the brain dated 08/01/2022. TECHNIQUE: Unenhanced axial CT scan of the brain is performed from the vertex to the skull base. A d ose lowering technique was utilized adhering to the principles of ALARA. CT DOSE: 537.48 mGy.cm FINDINGS: Brain parenchyma: The brain parenchyma is normal in appearance. There is no hemorrhage, mass effect, or evidence of acute territorial ischemia by CT criteria. Maldonado-white matter differentiation is preser heather. No extra-axial fluid collection is seen. Ventricles, sulci, cisterns: Normal in configuration. Intracranial vasculature: There is atherosclerotic calcification of the cavernous carotid and vertebr al arteries. Calvarium: Unremarkable. Sinuses and mastoids: There is evidence of previous paranasal sinus surgery. Trace mucosal thickening is noted in the left maxillary antrum. There is mild mucosal thickening in the left sphenoid sinus. There is a small left mastoid effusion. The right mastoid air cells are well pneumatized. Orbits: The bony orbits are grossly intact. IMPRESSION: There is no hemorrhage, mass effect, or evidence of acute territorial ischemia by CT dillon tejeda. ACT 112: Negative or not required by law. Electronically signed by: Eduin Breaux M.D. 08/01/2022 5:49 PM
[2022-08-01] MEDS ORDERED: predniSONE 20 MG TAB PO STA (18:21)
[2022-08-01] MEDS: ASPIRIN 81 MG ECTAB PO SCH (18:55)
[2022-08-01] MEDS: CLOPIDOGREL BISULFATE 75 MG TAB PO SCH (18:55)
[2022-08-01] MEDS: busPIRone 15 MG TAB PO SCH (20:40)
[2022-08-01] MEDS: NICOTINE 7 MG/24 HR TDSY TD SCH (20:41)
[2022-08-01] MEDS ORDERED: HEPARIN SOD 5,000 UNIT/0.5 ML VIAL SQ SCH (21:00)
[2022-08-02] MEDS: CHECK fentaNYL PATCH PLACEMENT SCH ×4 (00:22→23:32)
[2022-08-02 06:27] LABS: BUN Creatinine Ratio 31.6 (10-20); Calcium 9.3 mg/dl (8.5-10.1); Creatinine Clr Calc Pharmacy 119.3 ml/min; Est GFR (African American) 119.3 ml/min; Est GFR (Non-African American) 102.9 ml/min; Potassium 4.1 mmol/L (3.5-5.1)
[2022-08-02] MEDS: ATORVASTATIN 20 MG TAB PO SCH (07:55)
[2022-08-02] MEDS: ASPIRIN 81 MG ECTAB PO SCH (07:55)
[2022-08-02] MEDS: CLOPIDOGREL BISULFATE 75 MG TAB PO SCH (07:56)
[2022-08-02] MEDS: DULoxetine HCL 30 MG CAP PO SCH (07:56)
[2022-08-02] MEDS: PANTOprazole 40 MG TAB PO SCH (07:56)
[2022-08-02] MEDS: FOLIC ACID 1 MG TAB PO SCH (07:56)
[2022-08-02] MEDS: CHOLECALCIFEROL 1,000 UNITS 25 MCG TAB PO SCH (07:56)
[2022-08-02] MEDS: busPIRone 15 MG TAB PO SCH ×3 (07:56→20:42)
[2022-08-02] MEDS: predniSONE 20 MG TAB PO SCH (07:57)
[2022-08-02] MEDS: POLYETHYLENE (MIRALAX) 17 GM PACK PO SCH (07:57)
[2022-08-02 08:04] LABS: Estimated Average Glucose 97 mg/dl
--- NOTE | 2022-08-02 08:13 | Pharmacy Report ---
- Date of Service August 02, 2022 - Pharmacy CVA/TIA Medication Review Medications to Prevent Stroke handout has been added to the patients discharge packet. Antiplatelet(s) * Aspirin 81mg PO daily and clopidogrel 75mg PO daily Cholesterol * High intensity statin: atorvastatin 60 mg daily DVT Prophylaxis * SCD knee Therapeutic Anticoagulation * No history of Afib/Aflutter noted Type 2 Diabetes * Patient does not have T2DM
--- NOTE | 2022-08-02 11:59 | Hospitalist Progress Note ---
Date of Service August 02, 2022 Assessment & Plan (1) Stroke-like symptoms: Plan: Patient presented with what appeared to be a right-sided ischemic CVA. Met criteria for lytic therapy. S/p telestroke consult, followed by Trav. Subsequent admission to ICU. Speech has returned to normal; she continues with left arm/left leg symptoms (also complains of RLE weakness but strength seems normal on that side). The above symptoms are present despite negative MRI brain for acute CVA. CTA head/neck noted. Echo w/o thrombus. LDL 40 on lipid profile; hemoglobin a1c 5%. Aborted CVA s/p TNKase (given the negative MRI brain)? Complicated/complex migraine? (L sided weakness, dysarthria were preceded several hours in advance by a migraine) Cervical spine pathology? (but this would not explain her speech issues) other?? Appreciate ICU & neuro consults. For possible stroke - asa/plavix begun for secondary prevention. Cont statin. Yesterday we treated for complicated migraine by giving mag sulfate 1gm x 1 along with prednisone 60mg daily x 5 days. Despite resolution of her migraine her weakness complaints persist. Her presentation and symptoms are perplexing. Will REPEAT brain MRI w/ and w/o contrast. Will also obtain Cervical spine MRI w/ and w/o contrast. Will skip l-spine MRI as lumbar spine pathology would not explain her left arm symptoms. (2) Migraine: Plan: As noted in #1 above - could symptoms have been due to complex migraine given her persistent symptoms despite negative MRI Brain? She had an ongoing bifrontal headache that was typical for her usual migraines. Started prednisone 60mg daily x 5 days (discussed with neuro) on 08/01/22 Ideally an abortive Rx like Nurtec would be helpful but is not on our formulary. Dim the lights, draw blinds, etc. Despite headache resolution today her weakness continues. See #1 above. (3) Herniation of cervical intervertebral disc with radiculopathy: Plan: This could explain arm (and possibly the leg) symptoms but not the speech symptoms. Given persistent LUE and b/l LE weakness (and pain in LUE) will obtain cervical spine MRI w/ and w/o contrast. (4) CAD (coronary artery disease): Plan: No symptoms to suggest ACS. Cont statin. Cont asa. Resume imdur. Uncertain why she is not on beta seema therapy. (5) COPD (chronic obstructive pulmonary disease): Plan: No flare at this time. (6) Fibromyalgia: (7) Hypertension: Plan: Resume imdur in am. If BPs remain high then resume diltiazem as well. 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 - increase from 7mg to 21mg (smokes 1ppd) (10) Chronic pain syndrome: Plan: on chronic narcotics - fentanyl patch + norco prn 2nd to chronic neck/back pain PDMP shows her fentanyl patch 25 was recently increased to 50mcg q3days adjust the patch patient's home med list shows cymbalta 120mg daily AND 30mg daily need to clarify her home dose (11) B12 deficiency: Plan: checked b12 level -- >300 cont her monthly injections as previous Plan PT, OT, speech evals appreciated therapy recommending rehab post-d/c await MRIs Admission and Anticipated Discharge Date Admission Date: July 31, 2022 Subjective patient reports that her migraine headache has resolved she is eating per nursing flowsheets she has had no dysphagia or dysarthria/aphasia she continues with left arm weakness, left arm numbness/pain extending from the L scapular region down the back of arm to the hand, and b/l leg weakness she reports difficulty walking because of the LE weakness indeed PT/OT have advised rehab post-d/c denies right arm symptoms has mild neck pain and mild lumbar back pain today asks why her fentanyl patch is only 25mcg; she reports her patch was increased to 50mcg in the days leading up to this admission she reports the b/l leg weakness is chronic, but the left leg worsened on the day of admission no bowel or bladder incontinence no severe numbness or tingling of legs Review of Systems Review of Systems: cv - no chest pain pulm - no cough GI - no abd pain, occasional nausea gen - no fevers neuro - again headache resolved Physical Exam Physical Exam: gen - morbidly obese, NAD, speech fluent/clear neck - mildly tender posterior neck at the base to palpation; no JVD mouth - MM slightly dry heart - RRR, s1 s2, no murmur lungs - CTA b/l abd - soft NT ND BS+ ext - no edema, pulses 2+ b/l neuro - no facial droop; speech clear - no dysarthria/aphasia; left arm weakness, about 4/5 (handgrip, biceps, triceps); sensation slightly decreased posterior L arm and digits 4/5 on L hand; sensation intact right arm/hand; RUE 5/5 strength; RLE strength 5/5; left hip flexion 4/5; left ankle dorsiflexion/plantarflexion near 4-5/5 strength; sensation intact L4/L5 dermatomes; DTRs brisk upper and lower extremities; ankle jerks without clonus psych - a/o x 3 Results & Data Results & Data ([facility]) Vital Signs (Past 12 Hours) Vital Signs Temp Pulse Pulse Resp BP Pulse Ox O2 Del Method 08/02/22 10:00 150/91 H 08/02/22 09:39 103 H 162/100 H 08/02/22 07:00 36.8 C 80 20 137/73 95 Room Air 08/02/22 08:00 Room Air 08/02/22 08:00 Room Air 08/02/22 04:00 37.0 C 75 15 122/71 94 Room Air 08/02/22 00:00 37.0 C 73 14 145/68 H 93 Room Air 08/02/22 00:00 73 Laboratory Results Laboratory Results - last 24 hr 08/01/22 08/01/22 08/01/22 16:40 16:40 16:40 WBC 7.47 RBC 3.96 L Hgb 12.2 Hct 36.7 L MCV 92.7 MCH 30.8 MCHC 33.2 RDW Std Deviation 43.5 RDW Coeff of Francis 12.9 Plt Count 268 MPV 8.7 L Immature Gran % (Auto) 0.4 Neut % (Auto) 68.4 Lymph % (Auto) 20.3 [place] % (Auto) 10.2 Eos % (Auto) 0.0 Baso % (Auto) 0.7 Neut # (Auto) 5.11 Lymph # (Auto) 1.52 [place] # (Auto) 0.76 H Eos # (Auto) 0.00 Baso # (Auto) 0.05 Immature Gran # (Auto) 0.03 Sodium 138 Potassium 4.1 Chloride 107 Carbon Dioxide 28 Anion Gap 3 BUN 22 Creatinine 0.66 D Est Cr Clr Drug Dosing 103.1 Est GFR ( Amer) 113.7 Est GFR (Non-Af Amer) 98.1 BUN/Creatinine Ratio 33.3 H Glucose 92 Estimat Average Glucose 97 Hemoglobin A1c 5.0 Calcium 9.1 Triglycerides 130 Cholesterol 112 LDL Cholesterol, Calc 40 VLDL Cholesterol, Calc 26 HDL Cholesterol 46 Cholesterol/HDL Ratio 2.4 Vitamin B12 08/02/22 08/02/22 08/02/22 05:44 06:14 09:33 WBC RBC Hgb Hct MCV MCH MCHC RDW Std Deviation RDW Coeff of Francis Plt Count MPV Immature Gran % (Auto) Neut % (Auto) Lymph % (Auto) [place] % (Auto) Eos % (Auto) Baso % (Auto) Neut # (Auto) Lymph # (Auto) [place] # (Auto) Eos # (Auto) Baso # (Auto) Immature Gran # (Auto) Sodium 137 Potassium 4.1 Chloride 106 Carbon Dioxide 26 Anion Gap 5 BUN 18 Creatinine 0.57 L Est Cr Clr Drug Dosing 119.3 Est GFR ( Amer) 119.3 Est GFR (Non-Af Amer) 102.9 BUN/Creatinine Ratio 31.6 H Glucose 136 H Estimat Average Glucose Hemoglobin A1c Calcium 9.3 Triglycerides Cholesterol LDL Cholesterol, Calc VLDL Cholesterol, Calc HDL Cholesterol Cholesterol/HDL Ratio Vitamin B12 Cancelled 338 PG Care Time/CCT Total # of Minutes Spent Total Time Spent with Patient: Total time spent is greater than 50% in coordination of care (as documented) at patient's floor/unit and/or counseling patient: Coding Level of Care Code 97957 SUB INP/OBS CARE 3/50MIN Diagnoses Stroke-like symptoms R29.90 Migraine G43.909 Herniation of cervical intervertebral disc with radiculopathy M50.10 CAD (coronary artery disease) I25.10 COPD (chronic obstructive pulmonary disease) J44.9 Fibromyalgia M79.7 Hypertension I10 DVT prophylaxis Z29.9 Tobacco abuse Z72.0 Chronic pain syndrome G89.4 B12 deficiency E53.8
--- NOTE | 2022-08-02 12:29 | Neurology Progress Note ---
Date of Service August 02, 2022 Assessment & Plan (1) Weakness: Plan Neurology Progress Note Assessment & Plan: Impression:pt with s/p TNKase and left hemiparesis in setting of migraine and anxiety and chronic pain issues. mri brain negative. At this point, Ddx including TIA , complicated migraine with chronic pain (neck pain) contributing. Recommendations: -at this point not much to add. ok to continue ASA for stroke prevention. pt can f/u with her primary and pain providers for addressing her pain issues. no need for permissive HTN at this point. routine headache treatment as discussed. will sign off. Dr. Jett Matamoros MD [facility] Neurology Subjective: Patient Seen and Examined. The notes from the last 24 hours were reviewed.pt feeling better. headache much improved. mri brain negative. Review of Systems: Per HPI and prior note. Physical Exam: Neuro: Level of consciousness:Alert and appropriate Oriented:X 3 Cranial Nerves:face symmetric, PERRL, tongue midline, hearing intact, shrugs shoulders Strength:5/5 throughout rt side. 4+/5 left upper and lower, mainly appears to be due to pain issues. Sensation to light touch: Intact bilaterally Meds: See chart I personally reviewed all of the medications Chart reviewed Total time spent: 50 minutes (this includes chart review); more than 50% time spent in counseling or coordination of care. Admission and Anticipated Discharge Date Admission Date: July 31, 2022 Results & Data ([facility]) Vital Signs (Past 12 Hours) Vital Signs Temp Pulse Resp BP Pulse Ox O2 Del Method 08/02/22 12:00 37.0 C 88 20 150/91 H 96 Room Air 08/02/22 10:00 150/91 H 08/02/22 09:39 103 H 162/100 H 08/02/22 07:00 36.8 C 80 20 137/73 95 Room Air 08/02/22 08:00 Room Air 08/02/22 08:00 Room Air 08/02/22 04:00 37.0 C 75 15 122/71 94 Room Air
[2022-08-02] MEDS: fentaNYL 50 MCG/HR TDSY TD SCH (12:34)
[2022-08-02] MEDS: HYDROcodone/ACETAMINOPHEN 10/325 TAB PO PRN (17:14)
[2022-08-02] MEDS ORDERED: NICOTINE 21 MG/24 HR TDSY TD SCH (18:00)
[2022-08-02] MEDS ORDERED: LORazepam 0.5 MG TAB PO STA (18:01)
[2022-08-02] MEDS ORDERED: KETOROLAC 30 MG/ML VIAL IV ONE (18:01)
[2022-08-02] MEDS: NICOTINE 21 MG/24 HR TDSY TD SCH (20:41)
[2022-08-02] MEDS: GABAPENTIN 400 MG CAP PO SCH (20:42)
[2022-08-02] MEDS ORDERED: GADOBUTROL 65ML VIAL IV ONE (21:53)
[2022-08-03] MEDS: ACETAMINOPHEN 1,000 MG/100 ML VIAL IV PRN ×2 (05:02→13:34)
[2022-08-03] MEDS: HEPARIN SOD 5,000 UNIT/0.5 ML VIAL SQ SCH ×3 (06:35→22:08)
[2022-08-03] MEDS: HYDROcodone/ACETAMINOPHEN 10/325 TAB PO PRN ×2 (06:35→20:48)
--- NOTE | 2022-08-03 07:18 | Magnetic Resonance Report ---
MRI OF THE BRAIN COMBO CLINICAL HISTORY: Left-sided weakness. Strokelike symptoms status post TPA. COMPARISON STUDY: CT and MRI of the brain dated 08/01/2022. TECHNIQUE: MRI of the brain was performed utilizing various T1 and T2-weighted sequences in the axial , sagittal, and coronal planes. Contrast-enhanced sequences were acquired following the administratio n of 9.7 cc of Gadavist. FINDINGS: Brain parenchyma: There is minimal microangiopathic change. There is no hemorrhage or mass effect. Th ere is no restricted diffusion to suggest acute ischemia. No enhancing mass lesion is identified on t he postcontrast images. Maldonado-white matter differentiation is preserved. No extra-axial fluid collecti on is seen. The cerebellar tonsils are normal in configuration. Ventricles, sulci, and cisterns: Normal in configuration. Pituitary and sella: Unremarkable. Intracranial vasculature: Normal flow voids are maintained at the skull base. Orbits: The bony orbits are grossly intact. Orbital contents are normal in appearance. Sinuses and mastoids: There is a left mastoid effusion. The right mastoid air cells are clear. Mild m ucosal thickening is noted in the right frontal sinus and the left sphenoid sinus. Calvarium: Unremarkable. Cervical cord: Partially visualized cervical spinal cord is normal in morphology and signal intensity . IMPRESSION: No acute intracranial abnormality. No change from recent prior studies. ACT 112: Negative or not required by law. Electronically signed by: Eduin Breaux M.D. 08/03/2022 7:17 AM
[2022-08-03] MEDS: POLYETHYLENE (MIRALAX) 17 GM PACK PO SCH (07:49)
[2022-08-03] MEDS: ATORVASTATIN 20 MG TAB PO SCH (07:50)
[2022-08-03] MEDS: FOLIC ACID 1 MG TAB PO SCH (07:50)
[2022-08-03] MEDS: CLOPIDOGREL BISULFATE 75 MG TAB PO SCH (07:50)
[2022-08-03] MEDS: DULoxetine HCL 30 MG CAP PO SCH ×2 (07:50→20:49)
[2022-08-03] MEDS: CHOLECALCIFEROL 1,000 UNITS 25 MCG TAB PO SCH (07:50)
[2022-08-03] MEDS: PANTOprazole 40 MG TAB PO SCH (07:50)
[2022-08-03] MEDS: ASPIRIN 81 MG ECTAB PO SCH (07:51)
[2022-08-03] MEDS: GABAPENTIN 400 MG CAP PO SCH ×2 (07:51→13:29)
[2022-08-03] MEDS: ISOSORBIDE MONO EXTENDED REL 30 MG TABCR PO SCH (07:51)
[2022-08-03] MEDS: predniSONE 20 MG TAB PO SCH (07:51)
[2022-08-03] MEDS: busPIRone 15 MG TAB PO SCH ×3 (07:52→20:48)
[2022-08-03] MEDS: CHECK fentaNYL PATCH PLACEMENT SCH ×3 (07:59→23:19)
[2022-08-03] MEDS: NICOTINE 21 MG/24 HR TDSY TD SCH (08:39)
--- NOTE | 2022-08-03 08:40 | Magnetic Resonance Report ---
MRI OF THE CERVICAL SPINE WITH AND WITHOUT CONTRAST CLINICAL HISTORY: LUE, b/l LE weakness, r/o c-spine process COMPARISON: MRI of the cervical spine September 14, 2019. Cervical spine radiographs September 15, 2019. TECHNIQUE: Utilizing a 1.5 Ana magnet and dedicated coil, multiplanar, multiecho imaging of the ce rvical spine was performed before and after intravenous administration of 9.7 of Gadavist. FINDINGS: Alignment of the cervical spine is anatomic. Vertebral body heights are maintained. Cervical cord sig nal and caliber are normal. There is no intracanalicular mass or fluid collection. There is no cervic al spine fracture. No evidence for discitis. No intracanalicular mass or fluid collection is present. There is no abnormal enhancement within the cervical canal. Apparent loss of signal within the CSF o n axial T2 sequence is not confirmed on the remainder of the pulsing sequences. Therefore, this is li nyasia artifactual. C2-C3: The central canal and neural foramen are patent. C3-C4: Mild posterior disc osteophyte complex is noted. This slightly effaces the ventral thecal sac . There is mild central canal stenosis at this level. There is mild narrowing of the neural foramen. C4-C5: Posterior disc osteophyte complex contacts the ventral aspect of the cord. There is mild cent ral canal stenosis. Neural foramen are patent. C5-C6: Posterior disc osteophyte complex results in mild to moderate central canal stenosis. This is similar to previous MRI. There is moderate to severe bilateral neural foraminal stenosis. C6-C7: Posterior disc osteophyte complex results in mild central canal stenosis. Neural foramen are patent. C7-T1: Central canal and neural foramen are patent. IMPRESSION: 1. No acute process within the cervical spine by MRI. Normal cervical cord signal and caliber. 2. Mild to moderate multilevel degenerative changes within the cervical spine, as described above. No significant change since MRI of September 14, 2019. ACT 112: Negative or not required by law. Electronically signed by: John Oviedo M.D. 08/03/2022 8:38 AM
--- NOTE | 2022-08-03 15:15 | Hospitalist Progress Note ---
Date of Service August 03, 2022 Assessment & Plan (1) Stroke-like symptoms: Plan: Patient presented with what appeared to be a right-sided ischemic CVA with left- sided weakness and dysarthria. Met criteria for lytic therapy. S/p telestroke consult, followed by Trav. Subsequent admission to ICU. Speech has returned to normal; she continues with left arm/left leg symptoms (also complains of RLE weakness but strength seems normal on that side). The above symptoms are present despite negative MRI brain for acute CVA. CTA head/neck negative for occlusion or stenosis Echo w/o thrombus. Telemetry with sinus rhythm LDL 40 on lipid profile; hemoglobin a1c 5%. Aborted CVA s/p TNKase (given the negative MRI brain)? Versus TIA? More likely seems to be related to complicated/complex migraine? (L sided weakness, dysarthria were preceded several hours in advance by a migraine and her left-sided weakness persist despite 2 negative brain MRIs) Cervical spine pathology? (but this would not explain her speech issues) Appreciate ICU & neuro consults. For possible high risk TIA- asa/plavix begun for secondary prevention. Cont statin. Counseled on smoking cessation Needs long-term cardiac event monitoring-Will need 30-day event monitor after discharge Treating for complicated migraine by giving mag sulfate 1gm x 1 along with prednisone 60mg daily x 5 days. REPEAT brain MRI w/ and w/o contrast on 08/02 is again negative for stroke Also obtained cervical spine MRI w/ and w/o contrast which shows stable cervical spine stenosis since 2019 although it is fairly severe at the C4-5 level Will skip l-spine MRI as lumbar spine pathology would not explain her left arm symptoms. Needs rehab placement-awaiting insurance authorization (2) Migraine: Plan: As noted above - could symptoms have been due to complex migraine given her persistent symptoms despite negative MRI Brain? She had an ongoing bifrontal headache that was typical for her usual migraines. Started prednisone 60mg daily x 5 days (discussed with neuro) on 08/01/22 and headache is now almost completely resolved (3) Herniation of cervical intervertebral disc with radiculopathy: Plan: This could explain arm (and possibly the leg) symptoms but not the speech symptoms. Given persistent LUE and b/l LE weakness (and pain in LUE) obtained cervical spine MRI w/ and w/o contrast which is without change from 2019 but does show significant spinal stenosis especially at C4-5 She does have hyperreflexia especially in the lower extremities with ankle clon us She is already in the process of an outpatient work-up with a spine surgeon and has an appointment within the next 2 weeks She will obtain the MRI of the cervical spine done here on disc and take to that spine surgeon -Continue gabapentin (4) CAD (coronary artery disease): Plan: No symptoms to suggest ACS. Cont statin. Cont asa. Continue Imdur Uncertain why she is not on beta seema therapy. (5) COPD (chronic obstructive pulmonary disease): Plan: No flare at this time. 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 (9) Chronic pain syndrome: Plan: on chronic narcotics - fentanyl patch + norco prn Also on gabapentin 2nd to chronic neck/back pain, fibromyalgia PDMP shows her fentanyl patch 25 was recently increased to 50mcg q3days- increased the dose back to 50 mcg on 08/02 patient's home med list shows cymbalta 120mg daily AND 30mg daily-will clarify her home dose and adjust the dose accordingly Home med list also shows gabapentin being 800 mg 3 times daily and she is on 400 Mg 3 times daily here-Will increase back to 800 if this is also the correct dose-we will clarify with patient (10) B12 deficiency: Plan: checked b12 level -- >300 cont her monthly injections as previous (11) DVT prophylaxis: Plan: SC heparin [address] head neg for ICH Plan PT, OT, speech evals appreciated Disposition-therapy recommending rehab post-d/c-medically stable for discharge, awaiting rehab approval Admission and Anticipated Discharge Date Admission Date: July 31, 2022 Anticipated date of discharge: 08/04/22 Subjective Patient still has a mild headache at times but overall improved. Has pain all over her body and is upset that she did not receive her as needed hydrocodone throughout the entire night therefore she was unable to sleep. She continues to have some weakness in the left upper and left lower extremity. No further speech problems. Telemetry with normal sinus rhythm and normal rates Review of Systems Review of Systems: All systems reviewed & are unremarkable except as noted in HPI & below Physical Exam Constitutional: WD/WN, vitals as above Eyes: PERRL, conjunctivae normal, anicteric sclerae Respiratory: normal respiratory effort, lungs clear to auscultation Cardiovascular: RRR, no murmur, no edema Gastrointestinal (Abdomen): normal bowel sounds, soft, nontender, no hepatosplenomegaly Neurologic: CN's II-XI intact bilaterally and + focal motor deficit (4+/5 strength on left side although improves with distraction); + abnormal deep tendon reflexes (DTRs 3+ throughout upper and lower extremities, 3 beats ankle clonus bilat) and not confused Speech / Cognition: normal speech Psychiatric: A+Ox3, euthymic affect Results & Data Results & Data ([facility]) Vital Signs (Past 12 Hours) Vital Signs Temp Pulse Pulse Resp BP Pulse Ox O2 Del Method 08/03/22 08:00 Room Air 08/03/22 08:00 85 08/03/22 04:00 36.5 C 76 14 142/80 H 100 Room Air Laboratory Results No labs to review today PG Care Time/CCT Total # of Minutes Spent Total Time Spent with Patient: Total time spent is greater than 50% in coordination of care (as documented) at patient's floor/unit and/or counseling patient: Coding Level of Care Code 42025 SUB INP/OBS CARE 2/35MIN Diagnoses Stroke-like symptoms R29.90 Migraine G43.909 Herniation of cervical intervertebral disc with radiculopathy M50.10 CAD (coronary artery disease) I25.10 COPD (chronic obstructive pulmonary disease) J44.9 Fibromyalgia M79.7 Hypertension I10 Tobacco abuse Z72.0 Chronic pain syndrome G89.4 B12 deficiency E53.8 DVT prophylaxis Z29.9
[2022-08-03] MEDS: GABAPENTIN 800 MG TAB PO SCH (20:49)
[2022-08-04] MEDS: HEPARIN SOD 5,000 UNIT/0.5 ML VIAL SQ SCH ×3 (05:58→23:02)
[2022-08-04] MEDS: CLOPIDOGREL BISULFATE 75 MG TAB PO SCH (08:00)
[2022-08-04] MEDS: predniSONE 20 MG TAB PO SCH (08:05)
[2022-08-04] MEDS: busPIRone 15 MG TAB PO SCH ×3 (08:05→19:38)
[2022-08-04] MEDS: ASPIRIN 81 MG ECTAB PO SCH (08:05)
[2022-08-04] MEDS: CHOLECALCIFEROL 1,000 UNITS 25 MCG TAB PO SCH (08:06)
[2022-08-04] MEDS: DULoxetine HCL 30 MG CAP PO SCH (08:06)
[2022-08-04] MEDS: ISOSORBIDE MONO EXTENDED REL 30 MG TABCR PO SCH (08:06)
[2022-08-04] MEDS: PANTOprazole 40 MG TAB PO SCH (08:06)
[2022-08-04] MEDS: NICOTINE 21 MG/24 HR TDSY TD SCH (08:07)
[2022-08-04] MEDS: dilTIAZem HCL 180 MG CAPCR PO SCH (08:07)
[2022-08-04] MEDS: GABAPENTIN 800 MG TAB PO SCH ×3 (08:07→19:38)
[2022-08-04] MEDS: ROSUVASTATIN CALCIUM 20 MG TAB PO SCH (08:08)
[2022-08-04] MEDS: FOLIC ACID 1 MG TAB PO SCH (08:08)
[2022-08-04] MEDS: CHECK fentaNYL PATCH PLACEMENT SCH ×3 (08:08→23:02)
[2022-08-04] MEDS: POLYETHYLENE (MIRALAX) 17 GM PACK PO SCH (08:09)
[2022-08-04] MEDS: HYDROcodone/ACETAMINOPHEN 10/325 TAB PO PRN ×2 (10:50→23:05)
[2022-08-04] MEDS ORDERED: LORazepam 1 MG TAB PO PRN (14:04)
--- NOTE | 2022-08-04 14:50 | Ultrasound Report ---
LEFT LOWER EXTREMITY VENOUS DOPPLER CLINICAL HISTORY: left calf pain,r/o DVT COMPARISON STUDY: No previous studies for comparison. TECHNIQUE: Sonography of the deep venous system of the left lower extremity was performed. Compressi on and augmentation were evaluated. FINDINGS: The left common femoral, superficial femoral and popliteal veins were compressible. Augmen tation was normal. Flow was shown within the deep calf vessels. IMPRESSION: No evidence of deep venous thrombus within the left lower extremity. ACT 112: Negative or not required by law. Electronically signed by: John Oviedo M.D. 08/04/2022 2:49 PM
[2022-08-04] MEDS: SUCRALFATE 1 GM TAB PO SCH ×2 (15:40→19:39)
--- NOTE | 2022-08-04 18:57 | Hospitalist Progress Note ---
Date of Service August 04, 2022 Assessment & Plan (1) Stroke-like symptoms: Plan: Patient presented with what appeared to be a right-sided ischemic CVA with left- sided weakness and dysarthria. Met criteria for lytic therapy. S/p telestroke consult, followed by Trav. Subsequent admission to ICU. Speech has returned to normal; she continues with left arm/left leg symptoms (also complains of RLE weakness but strength seems normal on that side). The above symptoms are present despite negative MRI brain for acute CVA. CTA head/neck negative for occlusion or stenosis Echo w/o thrombus. Telemetry with sinus rhythm LDL 40 on lipid profile; hemoglobin a1c 5%. Aborted CVA s/p TNKase (given the negative MRI brain)? Versus TIA? More likely seems to be related to complicated/complex migraine? (L sided weakness, dysarthria were preceded several hours in advance by a migraine and her left-sided weakness persist despite 2 negative brain MRIs) Cervical spine pathology? (but this would not explain her speech issues) Appreciate ICU & neuro consults. For possible high risk TIA- asa/plavix begun for secondary prevention-continue for 21 days and then convert to aspirin alone. Cont high intensity rosuvastatin Counseled on smoking cessation Needs long-term cardiac event monitoring-Will need 30-day event monitor after discharge Treating for complicated migraine by giving mag sulfate 1gm x 1 along with prednisone 60mg daily x 5 days. REPEAT brain MRI w/ and w/o contrast on 08/02 performed due to persistent left- sided symptoms and is again negative for stroke Also obtained cervical spine MRI w/ and w/o contrast which shows stable cervical spine stenosis since 2019 although it is fairly severe at the C4-5 level Will skip l-spine MRI as lumbar spine pathology would not explain her left arm symptoms. Needs rehab placement-awaiting insurance authorization (2) Migraine: Plan: As noted above - could symptoms have been due to complex migraine given her persistent symptoms despite negative MRI Brain? She had an ongoing bifrontal headache that was typical for her usual migraines. Started prednisone 60mg daily x 5 days (discussed with neuro) on 08/01/22 and headache is now almost completely resolved Will allow her to have caffeinated beverages with her meals Prednisone causing some insomnia-add lorazepam as needed at bedtime (3) Herniation of cervical intervertebral disc with radiculopathy: Plan: This could explain arm (and possibly the leg) symptoms but not the speech symptoms. Given persistent LUE and b/l LE weakness (and pain in LUE) obtained cervical spine MRI w/ and w/o contrast which is without change from 2019 but does show significant spinal stenosis especially at C4-5 She does have hyperreflexia especially in the lower extremities with ankle clonus She is already in the process of an outpatient work-up with a spine surgeon and has an appointment within the next 2 weeks She will obtain the MRI of the cervical spine done here on disc and take to that spine surgeon -Continue gabapentin 800 Mg p.o. 3 times daily (4) CAD (coronary artery disease): Plan: No symptoms to suggest ACS. Cont statin. Cont asa. Continue Imdur Uncertain why she is not on beta seema therapy. (5) COPD (chronic obstructive pulmonary disease): Plan: No flare at this time. Encourage smoking cessation (6) Fibromyalgia: Plan: Continue fentanyl patch and hydrocodone as needed Continue gabapentin (7) Hypertension: Plan: Continue Imdur and diltiazem No need for permissive hypertension as stroke is ruled out (8) Tobacco abuse: Plan: community health counselor to quit nicoderm patch (9) Chronic pain syndrome: Plan: on chronic narcotics - fentanyl patch + norco prn Also on gabapentin 2nd to chronic neck/back pain, fibromyalgia PDMP shows her fentanyl patch 25 was recently increased to 50mcg q3days- increased the dose back to 50 mcg on 08/02 Continue cymbalta but clarified dose again today based on visualizing her home bottles-she should take 90 mg in the morning and 60 mg in the evening-change the order (10) B12 deficiency: Plan: checked b12 level -- >300 cont her monthly injections as previous (11) DVT prophylaxis: Plan: SC heparin [address] head neg for ICH (12) Pain of left calf: Plan: Do not highly suspect DVT but will check Doppler Doppler was negative of left lower extremity Likely musculoskeletal (13) GERD (gastroesophageal reflux disease): Plan: Restart home Carafate Continue pantoprazole Plan PT, OT, speech evals appreciated Disposition-therapy recommending rehab post-d/c-medically stable for discharge, awaiting rehab approval to [facility] Admission and Anticipated Discharge Date Admission Date: July 31, 2022 Subjective Patient reports she did not sleep again all last night. Requesting something for sleep. Also is having some pain in the left calf with movement. She worked with physical therapy today. Denies chest pains or shortness of breath. Headache is gone. She is requesting to be taken off the heart healthy diet as she wants to drink caffeine. Thinks caffeine withdrawal is contributing to her headaches. Patient also reports she usually takes Carafate 4 times a day at home Review of Systems Review of Systems: All systems reviewed & are unremarkable except as noted in HPI & below Physical Exam Constitutional: WD/WN, vitals as above Eyes: PERRL, conjunctivae normal, anicteric sclerae Respiratory: normal respiratory effort, lungs clear to auscultation Cardiovascular: RRR, no murmur, no edema Gastrointestinal (Abdomen): normal bowel sounds, soft, nontender, no hepatosplenomegaly Musculoskeletal: Extremities: extremities normal to inspection (Positive tenderness to palpation over left calf, no edema or erythema) Neurologic: CN's II-XI intact bilaterally and + focal motor deficit (4+/5 strength on left side although improves with distraction); + abnormal deep tendon reflexes (DTRs 3+ throughout upper and lower extremities, 3 beats ankle clonus bilat) and not confused Speech / Cognition: normal speech Psychiatric: A+Ox3, euthymic affect Results & Data Results & Data ([facility] [place]) Vital Signs (Past 12 Hours) Vital Signs Temp Pulse Pulse Resp BP Pulse Ox O2 Del Method 08/04/22 16:18 36.8 C 78 18 125/72 95 Room Air 08/04/22 15:22 76 08/04/22 12:12 37.6 C H 96 H 19 120/70 94 Room Air 08/04/22 08:00 91 H 08/04/22 07:43 36.9 C 75 19 154/82 H 96 Room Air Laboratory Results No labs PG Care Time/CCT Total # of Minutes Spent Total Time Spent with Patient: Total time spent is greater than 50% in coordination of care (as documented) at patient's floor/unit and/or counseling patient: Coding Level of Care Code 40566 SUB INP/OBS CARE 3/50MIN Diagnoses Stroke-like symptoms R29.90 Migraine G43.909 Herniation of cervical intervertebral disc with radiculopathy M50.10 CAD (coronary artery disease) I25.10 COPD (chronic obstructive pulmonary disease) J44.9 Fibromyalgia M79.7 Hypertension I10 Tobacco abuse Z72.0 Chronic pain syndrome G89.4 B12 deficiency E53.8 DVT prophylaxis Z29.9 Pain of left calf M79.662 GERD (gastroesophageal reflux disease) K21.9
[2022-08-04] MEDS ORDERED: DULoxetine HCL 60 MG CAP PO SCH (21:00)
[2022-08-05] MEDS ORDERED: MELATONIN 3 MG TAB PO PRN (01:16)
[2022-08-05] MEDS: hydrOXYzine HCl 25 MG TAB PO PRN ×2 (01:31→08:50)
[2022-08-05] MEDS: HEPARIN SOD 5,000 UNIT/0.5 ML VIAL SQ SCH ×2 (05:43→13:35)
[2022-08-05 06:09] LABS: Basophils # (auto) 0.04 K/uL (0-0.2); Basophils % (auto) 0.3 %; Hematocrit (blood only) 35.1 % (37.0-47.0); Hemoglobin 11.8 g/dl (12.0-16.0); Immature Granulocytes % (auto) 0.9 %; Lymphocytes # (auto) 4.29 K/uL (1.2-3.4); Lymphocytes % (auto) 37.2 %; Mean Corpuscular Hemoglobin 30.4 pg (25.0-34.0); Mean Corpuscular Hgb Conc 33.6 g/dL (32.0-36.0); Mean Corpuscular Volume 90.5 fL (80.0-100.0); Mean Platelet Volume 8.7 fL (9.4-12.4); Monocytes # (auto) 1.05 K/uL (0.11-0.59); Monocytes % (auto) 9.1 %; Neutrophils # (auto) 6.06 K/uL (1.40-6.50); Neutrophils % (auto) 52.5 %; Platelet Count 294 K/uL (130-400); RDW Coefficient of Variation 12.7 % (11.5-14.5); RDW Standard Deviation 41.6 fL (36.4-46.3); Red Blood Count 3.88 M/uL (4.20-5.40); White Blood Count 11.54 K/ul (4.8-10.8)
[2022-08-05 06:28] LABS: BUN Creatinine Ratio 18.1 (10-20); Est GFR (African American) 107.7 ml/min; Potassium 3.3 mmol/L (3.5-5.1)
[2022-08-05] MEDS ORDERED: POTASSIUM CHLORIDE CRTAB 20 MEQ TABCR PO STA (08:36)
[2022-08-05] MEDS: fentaNYL 50 MCG/HR TDSY TD SCH (08:48)
[2022-08-05] MEDS: NICOTINE 21 MG/24 HR TDSY TD SCH (08:49)
[2022-08-05] MEDS: PANTOprazole 40 MG TAB PO SCH (08:50)
[2022-08-05] MEDS: SUCRALFATE 1 GM TAB PO SCH ×2 (08:50→11:36)
[2022-08-05] MEDS: POLYETHYLENE (MIRALAX) 17 GM PACK PO SCH (08:50)
[2022-08-05] MEDS: ROSUVASTATIN CALCIUM 20 MG TAB PO SCH (08:50)
[2022-08-05] MEDS: GABAPENTIN 800 MG TAB PO SCH ×2 (08:51→13:35)
[2022-08-05] MEDS: ISOSORBIDE MONO EXTENDED REL 30 MG TABCR PO SCH (08:52)
[2022-08-05] MEDS: busPIRone 15 MG TAB PO SCH ×2 (08:52→13:34)
[2022-08-05] MEDS: ASPIRIN 81 MG ECTAB PO SCH (08:52)
[2022-08-05] MEDS: predniSONE 20 MG TAB PO SCH (08:52)
[2022-08-05] MEDS: CHECK fentaNYL PATCH PLACEMENT SCH (08:53)
[2022-08-05] MEDS: CLOPIDOGREL BISULFATE 75 MG TAB PO SCH (08:54)
[2022-08-05] MEDS: dilTIAZem HCL 180 MG CAPCR PO SCH (08:54)
[2022-08-05] MEDS: CHOLECALCIFEROL 1,000 UNITS 25 MCG TAB PO SCH (08:54)
[2022-08-05] MEDS: FOLIC ACID 1 MG TAB PO SCH (08:55)
[2022-08-05] MEDS ORDERED: DULoxetine HCL 30 MG CAP PO SCH (09:00)
[2022-08-05] MEDS ORDERED: STROKE PATIENT DISCHARGE STA (13:18)
--- NOTE | 2022-08-05 13:22 | Discharge Summary ---
Date of Service August 05, 2022 Admission HPI Per Admitting Provider Olga Warren is a 56-year-old female with a past medical history of COPD, tobacco abuse, herniated cervical intervertebral disc spondylosis at C5-C6 not recommended for surgical intervention, and ambulatory dysfunction who presents as a stroke alert. Presents to the emergency department for bilateral weakness which began 90 minutes prior to arrival. Currently with left-sided weakness, EMS facial droop Last Normal: 2pm Patient reports she was in her otherwise normal state of health until 2 PM this afternoon when she was attempting to shower in the bathroom when she noticed that her arms were much weaker than normal and she was not able to lift her arms above her head to wash her hair. Her left week was much more weak than her right. She did call her sister who called 911 for prompt evaluation in the ER. Patient was noted by EMS to have a slight left-sided facial droop. Per patient she also felt like she could understand speech, and knew the words she wanted to say, but had a feeling like her "mouth was full of marbles "and had difficulty getting the words out. She also noted a feeling of tingling in her left jaw and fingers bilaterally. She had taken her morning medications as usual. Has a fentanyl patch in place for fibromyalgia and chronic pain, denies additional doses of pain medicine before symptom onset. She has a history of tobacco abuse of more than 35 years 2 pack/day now cutting back to 1/2 pack/day recently. No alcohol use. History of prior suspected TIA without residual deficit. Has history of CAD which underwent a cardiac catheterization previously but was found to have mild nonobstructing coronary disease, she has not had a heart attack and has no stents. Denies heart failure and reports she has had heart testing including an ultrasound performed. No history of heart failure. She does endorse chronic left-sided weakness with pain that will shoot from her left thigh down into her left lower leg. Has a chronic back pain. She feels she has had some chronic weakness with this, feels her symptoms have been worse than normal since 2 PM. She reports that she has had a lumbar MRI in the past, which showed a slightly protruding disc but surgical intervention was not recommended. Received TNKase while in the ER. Post TNKase patient reports that she feels her symptoms have somewhat improved. Dysarthria has resolved. Tingling in her hands has almost completely resolved. She has no numbness/tingling in her right hand, and it is about 90% resolved in her left hand, slightly affecting the distal tips of all 5 fingers. She reports she continues to feel a little more weak than normal in her left hand, and left leg. Right arm and leg strength feels normal to her. She feels like her vision is a little bit foggy/slightly blurry "like being underwater "but does not have any field cuts, and vision is not changed by covering either eye. Per outside pharmacy review: Last updated 2019. PDMP: Per month filling 150 (30-day supply) of hydrocodoneacetaminophen 103 25 in addition to fentanyl 50 mcg/h patch, quantity 10 for 30-day supply. Medications reconciled: Aspirin 81 mg daily BuSpar 15 3 times daily NSAIDs twice daily, narcotics as above Diltiazem 180 mg p.o. in the morning Duloxetine 150 mg daily Gabapentin 800 mg 3 times daily Hydroxyzine 50 3 times daily as needed Isosorbide mononitrate 30 mg daily Pantoprazole 40 mg Rosuvastatin 20 mg daily Principal Diagnosis TIA, complicated migraine Cervical spine stenosis Discharge Exam Constitutional WD/WN, vitals as above Eyes PERRL, conjunctivae normal, anicteric sclerae Respiratory normal respiratory effort, lungs clear to auscultation Cardiovascular RRR, no murmur, no edema Gastrointestinal (Abdomen) normal bowel sounds, soft, nontender, no hepatosplenomegaly Neurologic CN's II-XI intact bilaterally and + focal motor deficit (4+/5 strength on left side although improves with distraction); not confused Speech / Cognition: normal speech Psychiatric A+Ox3, euthymic affect Discharge Data Allergies Allergy/AdvReac Type Severity Reaction Status Date / Time fluoxetine AdvReac Dizziness Unverified 09/13/19 13:38 Consultations 07/31/22 16:26 ED Decision to Admit Stat 07/31/22 18:49 Consult Chassis Engineer Routine Consult Neurology Routine 08/05/22 12:28 Burn CD for patient Stat Ordered Studies 07/31/22 14:57 CT angio head w con Stat CT angio neck with con Stat CT head/brain wo con Stat 08/01/22 08:57 MR brain wo con Routine 08/01/22 17:36 CT head/brain wo con Routine 08/02/22 11:57 MR brain wo/w con Urgent MR cervical spine wo/w con Urgent 08/04/22 13:54 US venous doppler LE LT Stat Hospital Course (1) Stroke-like symptoms: Patient presented with what appeared to be a right-sided ischemic CVA with left- sided weakness and dysarthria. Met criteria for lytic therapy. S/p telestroke consult, followed by TNKase. Subsequent admission to ICU. Speech has returned to normal; she continues with left arm/left leg symptoms (also complains of RLE weakness but strength seems normal on that side). The above symptoms are present despite negative MRI brain for acute CVA. CTA head/neck negative for occlusion or stenosis Echo w/o thrombus. Telemetry with sinus rhythm LDL 40 on lipid profile; hemoglobin a1c 5%. Aborted CVA s/p TNKase (given the negative MRI brain)? Versus TIA? More likely seems to be related to complicated/complex migraine (L sided weakness, dysarthria were preceded several hours in advance by a migraine and her left-sided weakness persist despite 2 negative brain MRIs) Cervical spine pathology? (but this would not explain her speech issues) Appreciate ICU & neuro consults. For possible high risk TIA- asa/plavix begun for secondary prevention-continue for 21 days and then convert to aspirin alone. Cont high intensity rosuvastatin Counseled on smoking cessation Needs long-term cardiac event monitoring-Will need 30-day event monitor after discharge Treating for complicated migraine by giving mag sulfate 1gm x 1 along with prednisone 60mg daily x 5 days. REPEAT brain MRI w/ and w/o contrast on 08/02 performed due to persistent left- sided symptoms and is again negative for stroke Also obtained cervical spine MRI w/ and w/o contrast which shows stable cervical spine stenosis since 2019 although it is fairly severe at the C4-5 level Will skip l-spine MRI as lumbar spine pathology would not explain her left arm symptoms. Needs rehab placement (2) Migraine: As noted above - could symptoms have been due to complex migraine given her persistent symptoms despite negative MRI Brain? She had an ongoing bifrontal headache that was typical for her usual migraines. Started prednisone 60mg daily x 5 days (discussed with neuro) on 08/01/22 and headache is now almost completely resolved Will allow her to have caffeinated beverages with her meals Prednisone causing some insomnia-add lorazepam as needed at bedtime. Prednisone now complete. Mild leukocytosis on the day of discharge secondary to corticosteroid therapy (3) Herniation of cervical intervertebral disc with radiculopathy: This could explain arm (and possibly the leg) symptoms but not the speech symptoms. Given persistent LUE and b/l LE weakness (and pain in LUE) obtained cervical spine MRI w/ and w/o contrast which is without change from 2019 but does show significant spinal stenosis especially at C4-5 She does have hyperreflexia especially in the lower extremities with ankle clonus She is already in the process of an outpatient work-up with a spine surgeon and has an appointment within the next 2 weeks She will obtain the MRI of the cervical spine done here on disc and take to that spine surgeon -Continue gabapentin 800 Mg p.o. 3 times daily (4) CAD (coronary artery disease): No symptoms to suggest ACS. Cont statin. Cont asa. Continue Imdur Uncertain why she is not on beta seema therapy. (5) COPD (chronic obstructive pulmonary disease): No flare at this time. Encourage smoking cessation (6) Fibromyalgia: Continue fentanyl patch and hydrocodone as needed Continue gabapentin (7) Hypertension: Continue Imdur and diltiazem No need for permissive hypertension as stroke is ruled out (8) Tobacco abuse: milieu counselor to quit nicoderm patch (9) Chronic pain syndrome: on chronic narcotics - fentanyl patch + norco prn Also on gabapentin 2nd to chronic neck/back pain, fibromyalgia PDMP shows her fentanyl patch 25 was recently increased to 50mcg q3days- increased the dose back to 50 mcg on 08/02 Continue cymbalta but clarified dose based on visualizing her home bottles-she should take 90 mg in the morning and 60 mg in the evening (10) B12 deficiency: checked b12 level -- >300 cont her monthly injections as previous (11) DVT prophylaxis: SC heparin [address] head neg for ICH (12) Pain of left calf: Do not highly suspect DVT but checked Doppler Doppler was negative of left lower extremity Likely musculoskeletal (13) GERD (gastroesophageal reflux disease): Continue home Carafate Continue pantoprazole Plan PT, OT, speech evals appreciated Disposition-medically stable for discharge to rehab Total Time Total Time Spent Total Time Spent (In Minutes): 40 minutes Discharge Plan Discharge Items Patient Disposition: Transfer Inpatient Rehab Fac Reason For Visit: L WEAKNESS,DYSARTHRIA S/P TNKASE Discharge Diagnosis: TIA, complicated migraine, cervical spine stenosis Condition on Discharge: Good Activity: As commented below Lifting: Gradually increase as tolerated Bathing: No limitations Exercise/Sports: Gradually increase as tolerated Weightbearing: Full weightbearing Non-emergency contact: Primary Care Provider Call non-emergency contact if: you have any medication questions and your symptoms worsen Follow-up/Referrals: Jose Patterson M.D. [Primary Care Provider] - (Follow-up within 1 week after discharge from rehab.) Diet: Heart Healthy Diet Comment: May have coffee in the morning Addtl Attending Provider Instructions: You are admitted with a suspected stroke but stroke was ruled out with a normal brain MRI. Your speech issues as well as your left-sided weakness may have been related to a complicated migraine. There is a chance that you may have had a transient ischemic attack (TIA). Because of this, you will be placed on Plavix and a baby aspirin daily for 3 weeks, followed by baby aspirin once daily alone. You continue to have some left-sided weakness and an MRI of the cervical spine was performed which did show cervical spine stenosis worse at C4-C5. You do have some evidence of myelopathy on examination and you should keep your follow- up appointment with the spine surgeon as planned for next week. Please bring your MRI on a CD for the surgeon to review. It is important for you to quit smoking. Pending Studies at Discharge: No Stand-Alone Forms: My [facility] [employer], Medications to Prevent Stroke Skilled Items Patient informed of condition?: Yes DNR: No Discharge Level of Care: Acute rehab Communicable Disease: No Discharge Prognosis: Improving Lines: None Urinary Catheter: No Medications and DC Order Prescriptions: New clopidogrel 75 mg Tablet 75 mg PO QAM Qty: 16 0RF lorazepam 1 mg Tablet 1 mg PO HS PRN (Reason: insomnia) Qty: 7 0RF melatonin 3 mg Tablet 3 mg PO HS PRN (Reason: sleep) Qty: 30 0RF Continued pantoprazole 40 mg tablet,delayed release (DR/EC) 40 mg PO DAILY cyanocobalamin (vitamin B-12) 1,000 mcg/mL solution 1,000 mcg IM MONTHLY folic acid 1 mg tablet 1 mg PO DAILY duloxetine 60 mg capsule,delayed release(DR/EC) 60 mg PO BID nitroglycerin 0.4 mg tablet, sublingual 0.4 mg sublingual UD PRN (Reason: Chest Pain) nicotine 14 mg/24 hr patch 24 hour 1 patch transdermal DAILY isosorbide mononitrate 30 mg tablet extended release 24 hr 30 mg PO DAILY hydrocodone-acetaminophen 10-325 mg tablet 1 tab PO .EVERY 5 HOURS PRN (Reason: low back pain) duloxetine 30 mg Capsule,Delayed Release(Dr/Ec) 30 mg PO QAM gabapentin 800 mg Tablet 800 mg PO TID aspirin [Aspirin Low-Strength] 81 mg Tablet,Delayed Release (Dr/Ec) 81 mg PO QAM rosuvastatin 20 mg Tablet 20 mg PO DAILY cholecalciferol (vitamin D3) [Vitamin D3] 25 mcg (1,000 unit) Tablet 25 mcg PO DAILY diltiazem HCl 180 mg Capsule,Extended Release 24hr 180 mg PO QAM buspirone 15 mg Tablet 15 mg PO TID ascorbic acid (vitamin C) [Vitamin C] 500 mg Tablet 500 mg PO DAILY polyethylene glycol 3350 [Miralax] 17 gram/dose Powder 17 g PO DAILY sucralfate [Carafate] 1 gram Tablet 1 g PO ACHS fentanyl 50 mcg/hr Patch 72 Hour 1 patch TRANSDERMAL Q72H hydroxyzine pamoate 50 mg Capsule 50 mg PO TID PRN (Reason: Itching or insomnia) Qty: 30 0RF Discontinued celecoxib 200 mg capsule 200 mg PO BID Discharge Orders: Discharge Order (Routine); Ordered 08/05/22 Ordered By: Heather Khan Admission Data Admit Date/Time: 07/31/22 17:49 Attending Provider: Heather Khan Admit Provider: Sanjeev Mario Primary Care Provider: Jose Patterson Other Providers: Sanjeev Mario ; [place]ner ; Jett Matamoros ; [facility] Coding Level of Care Code HOSP INP/OBS DISCH >30 MIN Diagnoses Stroke-like symptoms R29.90 Migraine G43.909 Herniation of cervical intervertebral disc with radiculopathy M50.10 CAD (coronary artery disease) I25.10 COPD (chronic obstructive pulmonary disease) J44.9 Fibromyalgia M79.7 Hypertension I10 Tobacco abuse Z72.0 Chronic pain syndrome G89.4 B12 deficiency E53.8 DVT prophylaxis Z29.9 Pain of left calf M79.662 GERD (gastroesophageal reflux disease) K21.9
--- NOTE | 2022-08-10 07:49 | Coding Query ---
CODING QUERY To promote full compliance with coding requirements relating to patient care, provider participation is requested in all cases of forge heater uncertainty. Please assist us with the question(s) below: Coding Question(s): Please specify below, in your clinical opinion, the diagnosis most responsible for occasioning the inpatient admission: ( ) TIA ( x) Complicated Migraine ( ) Cervical Spinal Stenosis ( ) Other: Please Specify Physician's Response(s): Thank you Jeana Rubin Principal Diagnosis: "that condition established after study, to be chiefly responsible for occasioning the admission of the patient to the hospital for care." Co-Existing Principal Diagnosis: "when two or more diagnoses equally meet the criteria for principal diagnosis as determined by the circumstances of admission, diagnostic work up, and/or therapy provided, and the Alphabetic Index, Tabular List, or another coding guideline does not provide sequencing direction, any one of the diagnoses may be sequenced first." "When the physician has documented what appears to be a current diagnosis in the body of the record, but has not included the diagnosis in the final diagnostic statement, the physician should be asked whether the diagnosis should be added." (Source [facility]oding [facility] 2 QTR90. p3-4) LEXIE
== END 2022-08-05 13:47 | DRG 103 ==
LOC: ED 15:14 → 1E 17:49 → SUATTDRO 17:49 → 1E 18:22 → 2S 08-03 22:25